=== PATIENT | female | born 1965 | race Caucasian/White ===

== ENCOUNTER 2024-02-06 10:16 | Outpatient (OUT) | payer MEDICARE, SELFPAY ==
[2024-02-06 11:08] LABS: Estimated Average Glucose 105 mg/dL; Glycohemoglobin A1C 5.3 % (4.5-6.2)
[2024-02-06 11:22] LABS: Basophils Absolute Auto 0.1 10^3/uL (0.0-0.1); Basophils Percent Auto 0.6 % (0.2-2.0); Eosinophils Absolute Auto 0.1 10^3/uL (0.0-0.7); Eosinophils Percent Auto 0.6 % (0.9-7.0); Hematocrit 48.1 % (36.0-48.0); Hemoglobin 16.2 g/dL (12.0-16.0); Immature Granulocytes Abs Auto 0.02 10^3/uL (0.00-0.03); Immature Granulocytes Pct Auto 0.2 % (0.0-0.5); Lymphocytes Absolute Auto 2.2 10^3/uL (1.2-3.8); Mean Corpuscular HGB Conc 33.7 g/dL (29.9-35.2); Mean Corpuscular Hemoglobin 33.3 pg (26.7-34.0); Mean Platelet Volume 10.1 fL (9.5-13.5); Monocytes Absolute Auto 0.5 10^3/uL (0.3-0.8); Monocytes Percent Auto 5.7 % (1.7-12.0); Neutrophils Absolute Auto 5.3 10^3/uL (1.4-6.5); Neutrophils Percent Auto 65.9 % (43.0-75.0); Platelet Count 273 10^3/uL (150-450); Red Blood Count 4.86 10^6/uL (4.20-5.40); Red Cell Distribution Width 13.9 % (11.0-15.0); White Blood Count 8.1 10^3/uL (4.0-11.0)
[2024-02-06 11:58] LABS: Percent Iron Saturation 17.4 %
[2024-02-06 12:41] LABS: Alanine Aminotransferase 24 U/L (14-59); Albumin Level 4.1 g/dL (3.4-5.0); Alkaline Phosphatase 79 U/L (46-116); Aspartate Amino Transferase 25 U/L (15-37); BUN Creatinine Ratio 13.8; Bilirubin Total 0.4 mg/dL (0.2-1.0); Calcium 9.8 mg/dL (8.5-10.1); Carbon Dioxide 25.9 mmol/L (21.0-32.0); Chloride 99 mmol/L (98-107); Chol HDL Ratio 3.8; Cholesterol 232 mg/dL (<=200); Estimated GFR (African America 55 (>=60); Estimated GFR (Non-African Ame 45 (>=60); Glucose 111 mg/dL (74-106); HDL Cholesterol 61 mg/dL (40-60); Potassium 3.9 mmol/L (3.5-5.1); Sodium 137 mmol/L (136-145); TSH W/ REFLEX FT4 94.477 uIU/mL (0.358-3.740); Total Protein 8.1 g/dL (6.4-8.2); Triglycerides 101 mg/dL (<=150); VLDL CHOLESTEROL 20.2 mg/dL
[2024-02-07 07:07] LABS: Vitamin B12 366 pg/mL (232-1245)
[2024-02-07 09:07] LABS: Transferrin 336 mg/dL (192-364)
== END 2024-02-06 10:17 | disposition home or self-care (01) ==
DX: E03.0 Congenital hypothyroidism with diffuse goiter (principal); G93.32 Myalgic encephalomyelitis/chronic fatigue syndrome; M79.7 Fibromyalgia; L93.0 Discoid lupus erythematosus; E66.01 Morbid (severe) obesity due to excess calories; Z83.2 Family history of diseases of the blood and blood-forming organs and certain disorders involving the immune mechanism; M85.80 Other specified disorders of bone density and structure, unspecified site; Z78.0 Asymptomatic menopausal state
CPT/HCPCS: 36415; 80053; 80061; 82306; 82607; 82728; 83036; 83540; 83550; 84439; 84443; 84466; 85025

== ENCOUNTER 2024-03-21 12:28 | Outpatient (OUT) | payer MEDICARE, SELFPAY ==
--- OUTSIDE RECORDS SUMMARY | 2024-03-21 12:35 | XMS_ITS | CCD ---
Author Organization [facility] Care Team Providers Care Wood Casket Assembler Name Role Phone Lebron Hogan Admitting Unavailable Lebron Hogan Attending Unavailable Freeman Jaffe Primary Care Unavailable OBRIEN, JESSICA S Admitting Unavailable OBRIEN, JESSICA S Attending Unavailable ARLEEN ALFORD Primary Care Unavailable OBRIEN, JESSICA S Consulting Unavailable OBRIEN, JESSICA S Admitting Unavailable OBRIEN, JESSICA S Attending Unavailable ARLEEN ALFORD Primary Care Unavailable OBRIEN, JESSICA S Consulting Unavailable OBRIEN, JESSICA S Admitting Unavailable OBRIEN, JESSICA S Attending Unavailable ARLEEN ALFORD Primary Care Unavailable AISHA GATES Consulting Unavailable OBRIEN, JESSICA S Admitting Unavailable OBRIEN, JESSICA S Attending Unavailable ARLEEN ALFORD Primary Care Unavailable MISC, DOCTOR Admitting Unavailable MISC, DOCTOR Attending Unavailable ARLEEN ALFORD Primary Care Unavailable MISC, DOCTOR Consulting Unavailable ALYSSA LOUIS Consulting Unavailable MISC, DOCTOR Admitting Unavailable MISC, DOCTOR Attending Unavailable MISC, DOCTOR Consulting Unavailable ALYSSA LOUIS Consulting Unavailable ARLEEN ALFORD Primary Care Unavailable SAMSA, SIENA Admitting Unavailable SAMSA, SIENA Attending Unavailable MASSIEL SANTAMARIA Consulting Unavailable BARRINGTON STOKES Consulting Unavailable SAMSA, SIENA Consulting Unavailable NANETTE COTO Consulting Unavailable LORI COLON Referring Unavailkenneth ashford Problems Active Problems Problem Classification Problem Date Documented Da te Episodic/Chronic Asthma (1 source) Mild intermittent asthma with (acute) exacerbation; Translations: [MILD INTERMIT ASTHMA W/AC EXACERBAT] Onset: 03-26-2020 Chronic Cardiac dysrhythmias (1 source) Tachycardia, unspecified; Translations: [TACHYCARDIA UNSPECIFIED] Onset: 03-26-2020 Episodic Chronic obstructive pulmonary disease and bronchiectasis (1 source) Chronic obstructive pulmonary disease with (acute) exacerbation; Translations: [COPD WITH ACUTE EXACERBATION] Onset: 03-26-2020 Chronic Diseases of white blood cells (1 source) Elevated white blood cell count, unspecified; Translations: [ELEVATED WHITE BLOOD CELL COUNT UNS] Onset: 03-26-2020 Chronic Immunizations and screening for infectious disease (1 source) Contact with and (suspected) exposure to other viral communicable diseases; Translations: [CONTCT EXPS OTH VIRL COMMUNICABL DZ] Onset: 03-26-2020 Episodic Lung disease due to external agents (1 source) Bronchitis and pneumonitis due to chemicals, gases, fumes and vapors; Translations: [BRONCHIT PNEUMONIT D/T CHEM GAS VPR] Onset: 03-26-2020 Episodic Other aftercare (1 source) 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; Translations: [OTH CROCHET MACHINE OPERATOR CURRENT DRUG THERAPY] Onset: 03-26-2020 Episodic Other gastrointestinal disorders (1 source) Constipation, unspecified; Translations: [CONSTIPATION UNSPECIFIED] Onset: 03-26-2020 Episodic Other hereditary and degenerative nervous system conditions (1 source) Restless legs syndrome; Translations: [RESTLESS LEGS SYNDROME] Onset: 05-13-2019 Chronic Other lower respiratory disease (3 sources) Shortness of breath; Translations: [SHORTNESS OF BREATH] Onset: 03-14-2020 Episodic Other nervous system disorders (1 source) Chronic pain syndrome; Translations: [CHRONIC PAIN SYNDROME] Onset: 06-28-2019 Chronic Other nutritional; endocrine; and metabolic disorders (1 source) Morbid (severe) obesity with alveolar hypoventilation; Translations: [MORBID SEV OBESITY ALVEOLR HYPOVENT] Onset: 03-26-2020 Chronic Other nutritional; endocrine; and metabolic disorders (1 source) Body mass index (BMI) 50-59.9, adult; Translations: [BODY MASS INDEX BMI 50.0-59.9 ADULT] Onset: 03-26-2020 Chronic Other nutritional; endocrine; and metabolic disorders (1 source) Morbid (severe) obesity due to excess calories; Translations: [MORBID SEVERE OBES D/T EXCESS ALLEGRA] Onset: 06-28-2019 Chronic Poisoning by nonmedicinal substances (1 source) Toxic effect of detergents, accidental (unintentional), initial encounter; Translations: [TOXIC EFF DETERGENTS ACC INIT ENC] Onset: 03-26-2020 Residual codes; unclassified (1 source) Patient's noncompliance with other medical treatment and regimen; Translations: [PT NONCOMPLIANCE OTH MED TX AND REGIMEN] Onset: 03-26-2020 Episodic Residual codes; unclassified (1 source) Sleep apnea, unspecified; Translations: [SLEEP APNEA UNSPECIFIED] Onset: 05-13-2019 Spondylosis; intervertebral disc disorders; other back problems (11 sources) Sacroiliitis, not elsewhere classified; Translations: [Spondylosis without myelopathy or radiculopathy, thoracic region] Onset: 05-13-2019 Chronic Substance-related disorders (1 source) Nicotine dependence, cigarettes, uncomplicated; Translations: [NICOTINE DEPEND CIGARETTES UNCOMP] Onset: 03-26-2020 Chronic Thyroid disorders (1 source) Hypothyroidism, unspecified; Translations: [HYPOTHYROIDISM UNSPECIFIED] Onset: 03-26-2020 Chronic Unclassified (1 source) M35.9 - Systemic involvement of connective tissue, unspecified; Translations: [M35.9 - Systemic involvement of connective tissue, unspecified] Onset: 04-13-2018 Past or Other Problems Problem Classification Problem Date Documented Da te Episodic/Chronic Other connective tissue disease (4 sources) Other muscle spasm; Translations: [OTHER MUSCLE SPASM] Onset: 06-20-2019 Episodic Other fractures (1 source) Collapsed vertebra, not elsewhere classified, lumbar region, initial encounter for fracture; Translations: [COLLAPSED VERT NEC LUMBAR INIT ENC] Onset: 05-13-2019 Episodic Other non-traumatic joint disorders (1 source) Pain in left shoulder; Translations: [PAIN IN LEFT SHOULDER] Onset: 06-28-2019 Episodic Other non-traumatic joint disorders (1 source) Pain in right shoulder; Translations: [PAIN IN RIGHT SHOULDER] Onset: 06-28-2019 Episodic Residual codes; unclassified (1 source) Tobacco use; Translations: [TOBACCO USE] Onset: 05-13-2019 Episodic Spondylosis; intervertebral disc disorders; other back problems (6 sources) Low back pain; Translations: [Pain in thoracic spine] Onset: 05-10-2019 Episodic Results Test Name Value Interpretation Reference Range Facil ity CBC AUTO DIFFon 03-15-2020 Basophils (Bld) [#/Vol] 0.0 103/ul Normal 0.0-0.1 [facility] Comment on above: Performed By: #### C BC ####[facility] [address] [place] [address]Gerken Andie Basophils/100 WBC (Bld) 0.1 % Critically low 0.2-2.0 [facility] Comment on above: Performed By: #### C BC ####[facility] [address] [place] [address] 73[address]Qwmzmx Andie Eosinophils (Bld) [#/Vol] 0.0 103/ul Normal 0.0-0.7 [facility] Comment on above: Performed By: #### C BC ####[facility] [address] [place] [address] 83233Wqzkbf Andie Eosinophils/100 WBC (Bld) 0.0 % Critically low 0.9-7.0 [facility] Comment on above: Performed By: #### C BC ####[facility] [address] [place] [address] 13723Sdsaab Andie Erythrocyte distribution width (RBC) [Ratio] 13.4 % Normal 11.0-15.0 [facility] Comment on above: Performed By: #### C BC ####[facility] [address] [place] [address] 380[address]Tkdnja Andie Hematocrit (Bld) [Volume fraction] 42.2 % Normal 36.0-48.0 [facility] Comment on above: Performed By: #### C BC ####[facility] [address] [place] [address] 87164Qdfqwl Andie Hemoglobin (Bld) [Mass/Vol] 13.9 g/dL Normal 12.0-16.0 [facility] Comment on above: Performed By: #### C BC ####[facility] [address] [place] [address] 201[address]Upidjk Andie IG # 0.13 10e3/ul Critically high 0.00-0.03 [facility] Comment on above: Performed By: #### C BC ####[facility] [address] [place] [address] 37827Zvvusv Andie IG % 0.9 % Critically high 0.0-0.5 [facility] Comment on above: Performed By: #### C BC ####[facility] [address] [place] [address] 01999Jtebyt Andie Lymphocytes (Bld) [#/Vol] 0.9 103/ul Critically low 1.2-3.8 [facility] Comment on above: Performed By: #### C BC ####[facility] A[address] [place], [place] [address]Gerken Andie Lymphocytes/100 WBC (Bld) 6.4 % Critically low 20.5-60.0 [facility] Comment on above: Performed By: #### C BC ####[facility] [address] [place], [place] [address]Gerken Andie MANUAL DIFF REQ NO Normal [facility] Comment on above: Performed By: #### C BC ####[facility] [address] [place], [place] [address]Gerken Andie MCH (RBC) [Entitic mass] 32.0 pg Normal 26.7-34.0 [facility] Comment on above: Performed By: #### C BC ####[facility] [address] [place], [place] [address]Gerken Andie MCHC (RBC) [Mass/Vol] 32.9 g/dL Normal 29.9-35.2 [facility] Comment on above: Performed By: #### C BC ####[facility] [address] [place], [place] [address]Gerken Andie MCV (RBC) [Entitic vol] 97.2 fL Normal 81.0-99.0 [facility] Comment on above: Performed By: #### C BC ####[facility] [address] [place], [place] [address]Gerken Andie Monocytes (Bld) [#/Vol] 0.7 103/ul Normal 0.3-0.8 [facility] Comment on above: Performed By: #### C BC ####[facility] X[address] [place], [place] [address]Gerken Andie Monocytes/100 WBC (Bld) 4.7 % Normal 1.7-12.0 [facility] Comment on above: Performed By: #### C BC ####[facility] [address] [place], [place] [address]Gulvvn Andie Neutrophils (Bld) [#/Vol] 13.0 103/ul Critically high 1.4-6.5 [facility] Comment on above: Performed By: #### C BC ####[facility] [address] [place], [place] [address]Znkkhs Andie Neutrophils/100 WBC (Bld) 87.9 % Critically high 43.0-75.0 [facility] Comment on above: Performed By: #### C BC ####[facility] [address] [place] [address] 513[address]Jcqjrl Andie Platelet mean volume (Bld) [Entitic vol] 8.8 fL Critically low 9.5-13.5 [facility] Comment on above: Performed By: #### C BC ####[facility] [address] [place] [address] 33857Lkdyyd Andie Platelets (Bld) [#/Vol] 286 103/ul Normal 150-450 [facility] Comment on above: Performed By: #### C BC ####[facility] [address] [place] [address] 65514Prpnsu Andie RBC (Bld) [#/Vol] 4.34 106/ul Normal 4.20-5.40 [facility] Comment on above: Performed By: #### C BC ####[facility] [address] [place] [address] 96805Ebsdnc Andie WBC (Bld) [#/Vol] 14.8 103/ul Critically high 4.0-11.0 [facility] Comment on above: Performed By: #### C BC ####[facility] [address] [place], [place] [address]Lxblkh Andie ER URINE PROFILEon 0 Bilirubin [Mass/Vol] Negative Normal NEGATIVE [facility] Comment on above: Performed By: #### E RUR ####[facility] [address] [place] [address] 309[address]Rrhoad Andie BLOOD Negative Normal NEGATIVE [facility] Comment on above: Performed By: #### E RUR ####[facility] [address] [place] [id number] Andie Clarity (U) CLEAR Normal [facility] Comment on above: Performed By: #### E RUR ####[facility] [address] [place] [address] Andie Color (U) YELLOW Normal YELLOW [facility] Comment on above: Performed By: #### E RUR ####[facility] [address] [place] [address] Andie ERUAHD A micrscopic examination will be performed if indicated. Normal [facility] Comment on above: Performed By: #### E RUR ####[facility] [address] [place] [address] Andie Glucose [Mass/Vol] Negative Normal NEGATIVE [facility] Comment on above: Performed By: #### E RUR ####[facility] [address] [place] [address] Andie Ketones Ql (U) Negative Normal NEGATIVE [facility] Comment on above: Performed By: #### E RUR ####[facility] [address] [place] [address] Andie Nitrite Ql (U) Negative Normal NEGATIVE [facility] Comment on above: Performed By: #### E RUR ####[facility] [address] [place] [address] Andie pH (Bld) 5.0 Normal 5-9 [facility] Comment on above: Performed By: #### E RUR ####[facility] [address] [place] [address] Andie Protein (U) [Mass/Vol] Negative Normal [facility] Comment on above: Performed By: #### E RUR ####[facility] [address] [place] [address] Andie SPEC GRAVITY 1.020 Normal 1.005-<=1.025 [facility] Comment on above: Performed By: #### E RUR ####[facility] [address] [place], [place] [address]OtjczqAmanda Chaves UR MICRO IND NOT INDICATED Normal [facility] Comment on above: Performed By: #### E RUR ####[facility] [address] [place], [place] [address]Zhmkng Karen Urobilinogen Qn (U) 0.2 EU/dl Normal [facility] Comment on above: Performed By: #### E RUR ####[facility] [address] [place], [place] [address]Ulawlt Andie WBC (Bld) [#/Vol] Negative Normal NEGATIVE [facility] Comment on above: Performed By: #### E RUR ####[facility] [address] [place] [phone] Chaves BNPon 03-13-2020 Natriuretic peptide B (Bld) [Mass/Vol] 100.0 pg/mL Normal <=900.0 [facility] Comment on above: Performed By: #### B FLATTENING MACHINE OPERATOR, TSH, TROP, CMP #### [facility] [address] [place] [phone] Amanda Andie CBC AUTO DIFFon 03-13-2020 Basophils (Bld) [#/Vol] 0.1 103/ul Normal 0.0-0.1 [facility] Comment on above: Performed By: #### C BC #### [facility] [address] [place], [place] [address] Amanda Andie Basophils/100 WBC (Bld) 0.3 % Normal 0.2-2.0 [facility] Comment on above: Performed By: #### C BC #### [facility] [address] [place], [place] [address] Amanda Andie Eosinophils (Bld) [#/Vol] 0.1 103/ul Normal 0.0-0.7 [facility] Comment on above: Performed By: #### C BC #### [facility] [address] [place], [place] [address] Amanda Andie Eosinophils/100 WBC (Bld) 0.6 % Critically low 0.9-7.0 [facility] Comment on above: Performed By: #### C BC #### [facility] [address] [place], [place] [address] Amanda Andie Erythrocyte distribution width (RBC) [Ratio] 13.3 % Normal 11.0-15.0 [facility] Comment on above: Performed By: #### C BC #### [facility] [address] [place], [place] [address] Amanda Andie Hematocrit (Bld) [Volume fraction] 47.9 % Normal 36.0-48.0 [facility] Comment on above: Performed By: #### C BC #### [facility] [address] [place] [phone] Amanda Andie Hemoglobin (Bld) [Mass/Vol] 16.0 g/dL Normal 12.0-16.0 [facility] Comment on above: Performed By: #### C BC #### [facility] [address] [place] [address] Amanda Andie IG # 0.12 10e3/ul Critically high 0.00-0.03 [facility] Comment on above: Performed By: #### C BC #### [facility] [address] [address] Amanda Andie IG % 0.7 % Critically high 0.0-0.5 [facility] Comment on above: Performed By: #### C BC #### [facility] [address] [place] [address] Amanda Andie Lymphocytes (Bld) [#/Vol] 3.8 103/ul Normal 1.2-3.8 [facility] Comment on above: Performed By: #### C BC #### [facility] [address] [place] [address] Amanda Andie Lymphocytes/100 WBC (Bld) 21.9 % Normal 20.5-60.0 [facility] Comment on above: Performed By: #### C BC #### [facility] [address] [place] [phone] Amanda Andie MANUAL DIFF REQ NO Normal [facility] Comment on above: Performed By: #### C BC #### [facility] [address] [place], [place] [address] Amanda Andie MCH (RBC) [Entitic mass] 32.9 pg Normal 26.7-34.0 [facility] Comment on above: Performed By: #### C BC #### [facility] [address] [place], [place] [address] Amanda Andie MCHC (RBC) [Mass/Vol] 33.4 g/dL Normal 29.9-35.2 [facility] Comment on above: Performed By: #### C BC #### [facility] [address] [place], [place] [address] Amanda Andie MCV (RBC) [Entitic vol] 98.4 fL Normal 81.0-99.0 [facility] Comment on above: Performed By: #### C BC #### [facility] [address] [place] [address] Amanda Andie Monocytes (Bld) [#/Vol] 1.2 103/ul Critically high 0.3-0.8 [facility] Comment on above: Performed By: #### C BC #### [facility] [address] [place] [address] Amanda Andie Monocytes/100 WBC (Bld) 6.6 % Normal 1.7-12.0 [facility] Comment on above: Performed By: #### C BC #### [facility] [address] [place] [address] Amanda Andie Neutrophils (Bld) [#/Vol] 12.2 103/ul Critically high 1.4-6.5 [facility] Comment on above: Performed By: #### C BC #### [facility] [address] [place] [address] Amanda Andie Neutrophils/100 WBC (Bld) 69.9 % Normal 43.0-75.0 [facility] Comment on above: Performed By: #### C BC #### [facility] [address] [place] [address] Amanda Andie Platelet mean volume (Bld) [Entitic vol] 8.9 fL Critically low 9.5-13.5 [facility] Comment on above: Performed By: #### C BC #### [facility] [address] [place], [place] [address] Amadna Chaves Platelets (Bld) [#/Vol] 367 103/ul Normal 150-450 [facility] Comment on above: Performed By: #### C BC #### [facility] [address] [place], [place] [address] Amanda Chaves RBC (Bld) [#/Vol] 4.87 106/ul Normal 4.20-5.40 [facility] Comment on above: Performed By: #### C BC #### [facility] [address] [place], [place] [address] Amanda Chaves WBC (Bld) [#/Vol] 17.5 103/ul Critically high 4.0-11.0 [facility] Comment on above: Performed By: #### C BC #### [facility] [address] [place], [place] [address] Amanda Chaves CTA CHEST WO W CONon 020 CTA CHEST WO W CON PROCEDURE: CTA CHEST WO W CON REASON FOR STUDY/Clinical History: Chest pain, evaluate for PE COMPARISON STUDY: None available at time of dictation. CT ANGIO CHEST WITH CONTRAST: TECHNIQUE: Volumetric data acquisition of chest was obtained following intravenous administration of90 mL Omnipaque 350 intravenous contrast without any reported adverse effects. Axial images were reconstructed; sagittal and coronal images were reformatted. MIP (maximum intensity projection) images were performed. Images were reviewed PACS. Dose reduction techniques were achieved by using automated exposure control and/or adjustment of mA and/or kV according to patient size and/or use of iterative reconstruction technique. FINDINGS: Pulmonary Arteries: There is mixing artifact at the distal segmental and subsegmental pulmonary arterial tree secondary to somewhat suboptimal bolus timing with robust opacification of both the aorta and pulmonary venous system, however within this limitation the following are noted; There are no filling defects within main, lobar, segmental and visualized most proximal subsegmental branch pulmonary arteries. There is subtle heterogeneity on image 57 and 58 of series 11 as well as on image 57 through 60 of series 10 involving a distal right subsegmental pulmonary arterial branch, however motion on image 59 through 65 of series 4 is also suggested at this level. Very subtle pathology is not entirely excluded. There is top normal dimensional of main PA. Lungs: There is no peripheral pulmonary infarction, consolidation, pleural effusion, or right heart strain. There is no pneumothorax or pneumomediastinum. Very subtle atelectatic changes and pleural-based atelectasis can be appreciated with the most pronounced findings in the lingula at the anteromedial left lung base. Very subtle nodule on image 42 of series 4 and 43 of series 4 along the right pleural surface is felt to be less likely however not entirely excluded. This is felt to represent inflammatory change, however consider follow-up per Fleischner criteria. The dominant pleural-based atelectatic change or nodular focus measures up to 6 mm and the smaller component measures 3 mm. This finding is seen on image 42 and 43 of series 4. Aorta and Vasculature: There is normal caliber of thoracic aorta without evidence of aortic dissection, intramural hematoma or aneurysm. Lower Neck: Visualized portions of the thyroid gland are unremarkable. No significant cardiomegaly or pericardial effusion. No pathologic adenopathy in the mediastinum or hilar regions. Musculoskeletal: No aggressive focal bony lesions, acute fractures or dislocation. Chest wall: Unremarkable Partially visualized upper abdomen is mildly obscured due to motion however no definite focal acute process is appreciated. IMPRESSION: No convincing evidence of acute or chronic pulmonary embolism within the limitations as described above, particularly involving evaluation of the most distal pulmonary arterial tree. Probable artifact on the right involving the distal pulmonary arterial tree as described. Top normal caliber to the main pulmonary artery which may represent a degree of mild underlying pulmonary arterial hypertension. Subtle atelectatic changes as described with nodular atelectasis suggested on the right. Electronically authenticated by: NANETTE COTO Date: 2020-03-13 21:48 Normal [facility] LACTATE/LACTIC ACIDon 2019 Lactate [Moles/Vol] 1.3 mmol/L Normal 0.7-2.0 [facility] Comment on above: Performed By: #### L ACT #### [facility] [address] [place], [place] [address] Amanda Chaves PH VENOUS BLOODon 03-13-2020 PCO2 VENOUS 56.5 mmHg Critically high 40.0-52.0 [facility] Comment on above: Performed By: #### P HVEN #### [facility] [address] [place] [address] Amanda Chaves pH VENOUS 7.30 Critically low 7.33-7.43 [facility] Comment on above: Performed By: #### P HVEN #### [facility] [address] [place] [address] Amanda Chaves PROCALCITONINon 03-13-2020 PCT header 1 SEE BELOW Normal [facility] Comment on above: Result Comment: PCT <0.5ng/mL: Systemic infection (sepsis) is not likely, local bacterial infection possible, low risk for progression to severe systemic infection (severe sepsis) Performed By: #### P RL ####[facility] [address] [place], [place] [address]Gerken Andie PCT header 2 SEE BELOW Normal [facility] Comment on above: Result Comment: PCT >/=0.5 and <2 ng/mL: Systemic infection (sepsis) is possible, moderate risk for progression to severe systemic infection (severe sepsis) Performed By: #### P RL ####[facility] [address] [place], [place] [address]Gerken Andie PCT header 3 SEE BELOW Normal [facility] Comment on above: Result Comment: PCT >/=2.0 and <10 ng/mL: Systemic infection (sepsis) is likely, unless other causes are known, high risk for progession to severe systemic infection(severe sepsis) Performed By: #### P RL ####[facility] [address] [place] [address] Andie PCT header 4 SEE BELOW Normal [facility] Comment on above: Result Comment: PCT >/= 10 ng/mL: Important systemic inflammatory response almost exclusively due to severe bacterial sepsis or septic shock, high likelihood of severe sepsis or septic shock Performed By: #### P RL ####[facility] [address] [place] [address] Andie PROCALCITONIN <0.05 Normal 0.00-0.50 [facility] Comment on above: Performed By: #### P RL ####[facility] [address] [place], [place] [address]Amanda Chaves PROF 14(COMP METB)on 020 Albumin [Mass/Vol] 3.8 g/dL Normal 3.5-5.0 [facility] Comment on above: Performed By: #### B FLATTENING MACHINE OPERATOR, TSH, TROP, CMP ####[facility] [address] [place] [id number] Andie Albumin/Globulin [Mass ratio] 0.8 {ratio} Normal [facility] Comment on above: Performed By: #### B FLATTENING MACHINE OPERATOR, TSH, TROP, CMP ####[facility] [address] [place] [id number] Andie ALP [Catalytic activity/Vol] 87 U/L Normal 38-126 [facility] Comment on above: Performed By: #### B FLATTENING MACHINE OPERATOR, TSH, TROP, CMP ####[facility] [address] [place] [id number] Andie ALT [Catalytic activity/Vol] 17 U/L Normal 9-52 [facility] Comment on above: Performed By: #### B FLATTENING MACHINE OPERATOR, TSH, TROP, CMP ####[facility] [address] [place] [id number] Andie Anion gap [Moles/Vol] 13.1 mmol/L Normal [facility] Comment on above: Performed By: #### B FLATTENING MACHINE OPERATOR, TSH, TROP, CMP ####[facility] [address] [place] [id number] Andie AST [Catalytic activity/Vol] 11 U/L Critically low 14-36 [facility] Comment on above: Performed By: #### B FLATTENING MACHINE OPERATOR, TSH, TROP, CMP ####[facility] X[address] [place] [id number] Andie Bilirubin Ql (U) 0.3 mg/dL Normal 0.2-1.3 [facility] Comment on above: Performed By: #### B FLATTENING MACHINE OPERATOR, TSH, TROP, CMP ####[facility] [address] [place] [id number] Andie Calcium [Mass/Vol] 9.8 mg/dL Normal 8.4-10.2 [facility] Comment on above: Performed By: #### B FLATTENING MACHINE OPERATOR, TSH, TROP, CMP ####[facility] I[address] Andie Chloride [Moles/Vol] 104 mmol/L Normal 98-107 [facility] Comment on above: Performed By: #### B FLATTENING MACHINE OPERATOR, TSH, TROP, CMP ####[facility] [address] [place] [address] Andie CO2 [Moles/Vol] 27.6 mmol/L Normal 22.0-30.0 [facility] Comment on above: Performed By: #### B FLATTENING MACHINE OPERATOR, TSH, TROP, CMP ####[facility] [address] [place] [address] Andie Creatinine [Mass/Vol] 1.08 mg/dL Critically high 0.52-1.04 [facility] Comment on above: Performed By: #### B FLATTENING MACHINE OPERATOR, TSH, TROP, CMP ####[facility] [address] [place] [address] Andie EGFR-AF HUNGARIAN >60 Normal >=60 [facility] Comment on above: Performed By: #### B FLATTENING MACHINE OPERATOR, TSH, TROP, CMP ####[facility] [address] [place] [address] Andie EGFR-NON AF HUNGARIAN 53 mL/min/1.73m2 Critically low >=60 [facility] Comment on above: Performed By: #### B FLATTENING MACHINE OPERATOR, TSH, TROP, CMP ####[facility] [address] [place] [address] Andie Globulin (S) [Mass/Vol] 4.5 g/dL Normal [facility] Comment on above: Performed By: #### B FLATTENING MACHINE OPERATOR, TSH, TROP, CMP ####[facility] Isakqvasoz[address] Andie Glucose [Mass/Vol] 132 mg/dL Critically high 74-106 [facility] Comment on above: Performed By: #### B FLATTENING MACHINE OPERATOR, TSH, TROP, CMP ####[facility] [address], [place] [address]Ssrls[place] Andie Potassium [Moles/Vol] 3.7 mmol/L Normal 3.4-5.0 [facility] Comment on above: Performed By: #### B FLATTENING MACHINE OPERATOR, TSH, TROP, CMP ####[facility] T[address]gsb[address] [place] [id number] Andie Protein [Mass/Vol] 8.3 g/dL Critically high 6.1-8.2 T [facility] Comment on above: Performed By: #### B FLATTENING MACHINE OPERATOR, TSH, TROP, CMP ####[facility] [address] [place], [place] [id number] Andie Sodium [Moles/Vol] 141 mmol/L Normal 137-145 [facility] Comment on above: Performed By: #### B FLATTENING MACHINE OPERATOR, TSH, TROP, CMP ####[facility] [address] [place], [place] [id number] Andie Urea nitrogen [Mass/Vol] 14.0 mg/dL Normal 7.0-17.0 [facility] Comment on above: Performed By: #### B FLATTENING MACHINE OPERATOR, TSH, TROP, CMP ####[facility] [address] [place], [place] [address]Gerken Andie Urea nitrogen/Creatinine [Mass ratio] 13.0 mg/mg Normal [facility] Comment on above: Performed By: #### B FLATTENING MACHINE OPERATOR, TSH, TROP, CMP ####[facility] [address] [place], [place] [id number] Andie PROTIMEon 03-13-2020 INR Coag (PPP) [Relative time] 0.99 {INR} Normal [facility] Comment on above: Performed By: #### P TT, PT ####[facility] [address] [place], [place] [id number] Andie PT Coag (PPP) [Time] 10.5 s Normal 9.0-11.6 [facility] Comment on above: Performed By: #### P TT, PT ####[facility] [address] [place], [place] [id number] Andie PT Coag (PPP) [Time] SEE BELOW Normal [facility] Comment on above: Result Comment: ROBERT RED INR: 2.0 - 3.0 CONDITIONS NOT LISTED BELOW 2.5 - 3.5 FOR PROSTHETIC HEART VALVE REPLACEMENT 2.5 - 3.5 RECURRENT THROMBOSIS Performed By: #### P TT, PT ####[facility] [address] [place] [address] Andie PT Coag (PPP) [Time] PLEASE NOTE: NORMAL RANGE CHANGE 02-23-2014 DUE TO REAGENT LOT CHANGE Normal [facility] Comment on above: Performed By: #### P TT, PT ####[facility] [address] [place] [address] Andie PTTon 03-13-2020 aPTT Coag (Bld) [Time] 31.6 s Normal 22.3-36.2 [facility] Comment on above: Performed By: #### P TT, PT ####[facility] [address] [place] [address] Andie aPTT Coag (Bld) [Time] PLEASE NOTE: NORMAL RANGE CHANGE 05-02-2015 DUE TO REAGENT LOT CHANGE Normal [facility] Comment on above: Performed By: #### P TT, PT ####[facility] [address] [place] [address] Andie RESPIRATORY PANEL PLUSon Adenovirus NOT DETECTED Normal NOT DETECTED [facility] Comment on above: Performed By: #### R SPLUS ####[facility] [address] [place] [address] Andie B. Parapertusis NOT DETECTED Normal NOT DETECTED [facility] Comment on above: Performed By: #### R SPLUS ####[facility] [address] [place] [address] Andie B. Pertussis NOT DETECTED Normal NOT DETECTED [facility] Comment on above: Performed By: #### R SPLUS ####[facility] [address] [place] [address] Andie Chlamydia Pneumoniae NOT DETECTED Normal NOT DETECTED [facility] Comment on above: Performed By: #### R SPLUS ####[facility] Olrzmwpaqw[address] Andie Coronavirus 229E NOT DETECTED Normal NOT DETECTED [facility] Comment on above: Performed By: #### R SPLUS ####[facility] Irqkharwnk[address] Andie Coronavirus HKU1 NOT DETECTED Normal NOT DETECTED [facility] Comment on above: Performed By: #### R SPLUS ####[facility] Qcdehwpuej2572 [address] Andie Coronavirus NL63 NOT DETECTED Normal NOT DETECTED [facility] Comment on above: Performed By: #### R SPLUS ####[facility] Cflohqobgl3698 [address] Andie Coronavirus OC43 NOT DETECTED Normal NOT DETECTED [facility] Comment on above: Performed By: #### R SPLUS ####[facility] Mopoimlhof[address]83 [address] Andie Influenza A H1 2009 NOT DETECTED Normal NOT DETECTED [facility] Comment on above: Performed By: #### R SPLUS ####[facility] Arefbdtbgo8272 [address] Andie Influenza B NOT DETECTED Normal NOT DETECTED [facility] Comment on above: Performed By: #### R SPLUS ####[facility] Ydntecoynd[address] Andie Metapneumovirus NOT DETECTED Normal NOT DETECTED [facility] Comment on above: Performed By: #### R SPLUS ####[facility] Bakbyobjbx3863 [address] Andie Mycoplas. Pneumoniae NOT DETECTED Normal NOT DETECTED [facility] Comment on above: Performed By: #### R SPLUS ####[facility] Oonqhjesbg26[address] Andie Parainfluenza 1 NOT DETECTED Normal NOT DETECTED [facility] Comment on above: Performed By: #### R SPLUS ####[facility] Femynlsgfr7307 [address] Andie Parainfluenza 2 NOT DETECTED Normal NOT DETECTED [facility] Comment on above: Performed By: #### R SPLUS ####[facility] Voasrffyku0197 [address] Andie Parainfluenza 3 NOT DETECTED Normal NOT DETECTED [facility] Comment on above: Performed By: #### R SPLUS ####[facility] Apcgwnassb2611 [address] Andie Parainfluenza 4 NOT DETECTED Normal NOT DETECTED [facility] Comment on above: Performed By: #### R SPLUS ####[facility] Fucpimlocl[address]47 [address] Andie Rhino/Enterovirus NOT DETECTED Normal NOT DETECTED [facility] Comment on above: Performed By: #### R SPLUS ####[facility] Aczf[address]yls[address] RP2 Header 1 RESPIRATORY PANEL: VIRUSES Normal [facility] Comment on above: Performed By: #### R SPLUS ####[facility] Uycmoskajb[address] Andie RP2 Header 2 RESPIRATORY PANEL: BACTERIA Normal [facility] Comment on above: Performed By: #### R SPLUS ####[facility] [address] [place] [address] Andie RP2 Header 4 EUA SEE BELOW Normal [facility] Comment on above: Result Comment: This test is not yet approved or cleared by the [place] FDA. When there are no FDA-approved or cleared tests available, and other criteria are met, FDA can make tests available under an emergency access mechanism called an Emergency Use Authorization (EUA). The EUA for this test is supported by the [place] of Health and Human Service?s (HHS?s) declaration that circumstances exist to justify the emergency use of in vitro diagnostics for the detection and/or diagnosis of the virus that causes COVID-19. This EUA will remain in effect (meaning this test can be used) for the duration of the COVID-19 declaration justifying emergency of IVDs, unless it is terminated or revoked by FDA (after which the test may no longer be used). Performed By: #### R SPLUS ####[facility] [address] [place] [address] RSV NOT DETECTED Normal NOT DETECTED [facility] Comment on above: Performed By: #### R SPLUS ####[facility] [address] [place] [address] SARS-CoV-2: COVID-19 NOT DETECTED Normal NOT DETECTED [facility] Comment on above: Performed By: #### R SPLUS ####[facility] [address] [place] [address] TROPONIN - Ion 03-13-2020 Troponin I.cardiac [Mass/Vol] ng/mL Normal <=0.034 [facility] Comment on above: Performed By: #### B FLATTENING MACHINE OPERATOR, TSH, TROP, CMP ####[facility] [address] [place] [address] Troponin I.cardiac [Mass/Vol] SEE BELOW Normal [facility] Comment on above: Result Comment: <0.0 34 ng/ml NEGATIVE 0.034-0.119 INDETERMINATE 0.120 AMI CUT OFF Performed By: #### B FLATTENING MACHINE OPERATOR, TSH, TROP, CMP ####[facility] [address] [place] [address] TSHon 03-13-2020 TSH Qn 11.996 uIU/mL Critically high 0.470-4.680 [facility] Comment on above: Performed By: #### B FLATTENING MACHINE OPERATOR, TSH, TROP, CMP ####[facility] [address] [place] [address] TSH Qn SEE BELOW Normal [facility] Comment on above: Result Comment: <0.3 4 UIU/ml HYPERTHYROID 0.34-5.60 UIU/ml EUTHYROID >5.60 UIU/ml HYPOTHYROID Performed By: #### B FLATTENING MACHINE OPERATOR, TSH, TROP, CMP ####[facility] [address] [place] [address] MRI LSPINE WO CONon 10-21-19 20 MRI LSPINE WO CON EXAMINATION: MRI LSPINE WO CON HISTORY: Sacroiliac joint inflamed ; chronic lumbar pain COMPARISON: No relevant comparison available. TECHNIQUE: A variety of imaging planes and parameters were utilized for visualization of suspected pathology. FINDINGS: For the purposes of numbering, sagittal T2 image # 8 extends from the T11 vertebral body superiorly to the S2-3 level inferiorly. PARASPINAL AREA: Normal with no visible mass. BONES: Slight anterior wedging of L1 vertebral body without marrow edema. No acute fracture or spondylolisthesis. No bone lesion. CORD/CAUDA EQUINA: Normal caliber, contour, and signal intensity. DISC LEVELS: 12-L1: Early degenerative disc disease is present without focal protrusion or neural impingement. L1-L2: Early degenerative disc disease is present without focal protrusion or neural impingement. L2-L3: No significant disc/facet abnormality, spinal stenosis, or foraminal stenosis. L3-L4: No significant disc/facet abnormality, spinal stenosis, or foraminal stenosis. L4-L5: Mild facet degenerative arthropathy bilaterally. No significant disc/facet abnormality, spinal stenosis, or foraminal stenosis. L5-S1: Early degenerative disc disease is present without focal protrusion or neural impingement. IMPRESSION: 1. Mild anterior wedging of L1 vertebral body; sequela of remote mild compression fracture versus development. 2. No significant degenerative disc disease, and only mild degenerative facet arthropathy. 3. No significant central canal or neural foramen narrowing to account for the patient's symptoms. Electronically authenticated by: ALYSSA LOUIS Date: 2019-10-21 15:50 Normal [facility] MRI [facility] CONon 10-19-19 20 [facility]: MRI CSPINE WO CON HISTORY: Spondylosis without myelopathy COMPARISON: No relevant comparison available. TECHNIQUE: A variety of imaging planes and parameters were utilized for visualization of suspected pathology. FINDINGS: CRANIOCERVICAL AREA: Normal foramen magnum with no Chiari malformation. PARASPINAL AREA: Normal with no visible mass. BONES: No fracture, pars defect, or osseous lesion. CORD: Normal caliber, contour, and signal intensity. CERVICAL DISC LEVELS: C2-C3: No significant disc/facet abnormality, spinal stenosis, or foraminal stenosis. C3-C4: No significant disc/facet abnormality, spinal stenosis, or foraminal stenosis. C4-C5: No significant disc/facet abnormality, spinal stenosis, or foraminal stenosis. C5-C6: Mild foramen narrowing, left greater than right. Small posterior central disc extrusion causing mild central canal narrowing. No significant disc height reduction. C6-C7: Early degenerative disc disease is present without focal protrusion or neural impingement. C7-T1:. No significant disc/facet abnormality, spinal stenosis, or foraminal stenosis. IMPRESSION: 1. C5-6 mild foramen narrowing and small posterior disc protrusion consistent with mild degenerative disc disease. No significant central canal narrowing. Electronically authenticated by: ALYSSA LOUIS Date: 2019-10-19 15:31 Normal [facility] MRI TSPINE WO CONon 10-19-19 20 MRI TSPBANNER WO CON EXAMINATION: MRI TSPBANNER WO CON HISTORY: Spondylosis without myelopathy COMPARISON: No relevant comparison available. TECHNIQUE: Axial T2; Sagittal T1, T2, and Stir sequences. Images were performed without contrast. FINDINGS: CORD: Normal caliber, contour, and signal intensity. BONES: No fracture, pars defect, or osseous lesion. DISCS: No significant disc/facet abnormality, spinal stenosis, or foraminal stenosis. PARASPINAL AREA: No visible mass. OTHER: Negative. IMPRESSION: 1. Unremarkable MRI of the thoracic spine. Electronically authenticated by: ALYSSA LOUIS Date: 2019-10-19 15:36 Normal [facility] CONSULTATIONon 06-20-2019 CONSULTATION CONSULTATION PAIN MANAGEMENT Consultation Date: 06-20-19 HISTORY OF PRESENT ILLNESS: This is a very pleasant 54 year-old female patient who comes to the pain clinic with chronic neck pain and shoulder pain. She rates the neck and shoulder pain a 7/10, which is a constant aching and burning sensation. Activities that increase the pain are evening time, housework, lifting, bending, activities of daily living, activities, and cold weather change. Activities that decrease the pain are sitting, lying down, heat, Flexeril, [place], lidocaine patches topically, and Voltaren gel. On May 24, 2019 the patient had a #1 bilateral medial branch block at the levels of L2, L3, and L4, L5 which afforded the patient 100% relief of her pain and symptoms to the low back for 30 minutes then stated 30-40% for 1-2 hours. We will now proceed with a #2 medial branch block in the office today. I do believe her pain is more myofascial in nature. She denies any complications after the #1 medial branch block as well as any loss of bowel or bladder, injuries or falls. MEDICATIONS: PHYSICAL EXAM: VITALS:BP 156/99 with a heart rate of 60, respirations 18. The patient is 5'2 , 134 kg. HEENT:Head is atraumatic, normocephalic. Facial symmetry is maintained. NECK:Guarded with pain upon extension, compression, and direct palpation along the posterior elements which is concordant with facet arthropathy, spondylosis on the left and right side. There is noted cervical facet fullness. Trachea is midline. There is moderate range of motion and no guarding and pain with cervical rotation of the spine to the left and right. There are no paresthesias as well as paravertebral spasms noted. There is moderate tenderness to palpation to the left and right trapezius muscle as well as positive for muscle spasticity with a positive twitch response. HEART:Regular rate with no JVD noted. LUNGS:Normal expansion, with unlabored breathing, no audible wheezing noted. ABDOMEN:Soft, nondistended, and morbidly obese. BACK:Range of motion is guarded for flexion, extension, and rotation. Tenderness is noted along the extension, compression, and direct palpation along the lumbar facets. There is positive axial loading to the left and right lumbar facets. Nathen's is slightly positive as is the compression test. Point tenderness is noted to the lumbar region on the right and left without pain extending in the bilateral lower extremities. There are no paresthesias as well as paravertebral spasms noted at this time. EXTREMITIES:No pedal edema is noted to the bilateral lower extremities. MUSCULOSKELETAL:Inta ct with no motor weaknesses to the bilateral lower extremities. Muscle strength is 5/5 to the bilateral lower extremities. NEUROLOGICAL:The patient is neurologically intact to the bilateral lower extremities. Patellar reflex 2/2 and Achilles reflex 2/2 are present bilaterally to the lower extremities. PSYCHIATRIC:The patient is cooperative, alert and oriented x3, and appropriate for mood and affect. DIAGNOSES: 1. Thoracic pain. 2. Bilateral trapezius muscle spasticity. 3. Bilateral shoulder pain. 4. Chronic pain syndrome. 5. Morbid obesity. PLAN: 1. Bilateral trapezius trigger point injections for muscle spasticity. 2. The patient will followup in the pain clinic four weeks after the injection to reevaluate her pain. Dictated by Aisha Gates APRN [facility] Signed and Approved by: AISHA GATES 07/18/2019 12:39:00 Normal [facility] CONSULTATIONon 05-10-2019 CONSULTATION CONSULTATION PAIN MANAGEMENT Consultation Date: 05-10-19 CHIEF COMPLAINT: 1. Mid back pain. 2. Low back pain. 3. Restless legs. HISTORY OF PRESENT ILLNESS: Today in the office I saw Mercedes Lu. This is a 53 year-old female who is referred to us by Dr. Arleen Alford. The patient has had chronic pain. The patient in the past has been diagnosed with multiple pathologies including fibromyalgia. The patient describes the pain as a 7/10, a burning sensation. The patient states she cannot take NSAIDs due to her stomach hurting. MEDICATIONS: The patient takes Flexeril 10 mg q.p.m, oxycodone, in the past the patient was approximately 150 mEq whether it be oxycodone and/or morphine. Currently the patient is taking 5 mg q.i.d., Voltaren gel and Adderall 30 mg b.i.d. for her obstructive sleep apnea. ADL: The patient states activities such as twisting, pushing, walking, housework, lifting, bending, activities, change in weather, sleep aggravates the pain. Sitting mitigates the pain as does lying down for short periods of time. Forward flexion mitigates the pain. The patient had a lumbar epidural steroid injection by Dr. Ray in August of 2018. The patient has attended Physical Therapy multiple times. The patient has x-rays and an MRI dated 2014, the MRI was reviewed. X-rays are more recent. PAST MEDICAL HISTORY / PAST SURGICAL HISTORY and REVIEW OF SYSTEMS are noted on the chart along with the MEDICATIONS, ALLERGIES, and radiological images as stated above. PHYSICAL EXAM: GENERAL:This is a pleasant, morbidly obese female who is rather anxious. VITALS:Blood pressure is elevated at 132/98 with a heart rate of 118. The patient is anxious. HEAD:Atraumatic, normocephalic. NECK:Bullous. The patient does have a cushingoid type appearance. HEART:Regular rate. LUNGS:Normal expansion. The patient is a smoker. She states she's decreased from 3 packs a day to 1 pack per day. She was congratulated on this. Education was done about continuing this trendline. ABDOMEN:Protuberant, distended. At a height of 5'2 , the patient weighs 289 pounds. BACK:The patient has loss of lumbar lordosis. Pelvic is rotated anteriorly. Extension, compression, and direct palpation along the posterior elements aggravate and reproduce the pain symptomatology, concordant with facet arthropathy and lumbar spondylosis. EXTREMITIES:Pedal edema is present. MUSCULOSKELETAL:Inta ct in the lower extremities, the patient does have varus deformity in her knees. NEUROLOGICALLY:No radicular symptomatology is present. The patient is hyper-focused. PSYCHIATRICALLY:Affe ct is appropriate. IMPRESSION: 1. Low back pain. 2. Lumbar spondylosis. 3. Lumbar degenerative disc disease. 4. Symptomatology consistent with restless leg syndrome. 5. L1 compression fracture noted on the x-ray and the MRI. 6. Sleep apnea. 7. Tobacco usage. 8. Morbid obesity. PLAN: 1. Education was done with regards to our treatment modalities, especially the interventional. 2. We will schedule the patient for a lumbar medial branch block at the level of L2, L3 and L4, L5. 3. The patient will be started on a multivitamin regimen, which she is already taking a few of them. 4. Oxycodone 5/325 mg 1 tablet p.o. t.i.d. will be prescribed along with a UTOX being done in the office. 5. Heat rub has been suggested to the patient. The patient understands and would like to proceed. cc:Dr. Arleen Alford [facility] Signed and Approved by: DR JESSICA OBRIEN 05/17/2019 13:36:00 Normal [facility] Encounters Encounter Date Encounter Type Care Provider Facility Start: 03-09-2024 End: 03-09-2024 ambulatory LORI COLON Not Available Start: 03-14-2020 End: 03-16-2020 Evaluation and management of inpatient ARLEEN ALFORD Facility:[facility] Start: 10-21-2019 End: 10-22-2019 Patient encounter procedure DOCTOR MIS Facility:[facility] Start: 10-19-2019 End: 10-20-2019 Patient encounter procedure DOCTOR MIS Facility:[facility] Start: 07-25-2019 Patient encounter procedure JESSICA OBRIEN Facility:[facility] Start: 06-20-2019 End: 06-21-2019 Patient encounter procedure JESSICA OBRIEN Facility:[facility] Start: 05-24-2019 End: 05-24-2019 Patient encounter procedure JESSICA OBRIEN Facility:[facility] Start: 05-10-2019 End: 05-11-2019 Patient encounter procedure JESSICA OBRIEN Facility:[facility] Start: 04-13-2018 End: 04-13-2018 Patient encounter procedure Lebron Hogan Facility:[facility] Procedures Date Procedure Procedure Detail Performing Clinician Start: 03-13-2020 End: 03-13-2020 Microscopic examination of blood, culture JESSICA OBRIEN Comment on above: Performed By: #### B LDCX2 ####[facility] [address] [place], [place] [address]MortbeAmanda Chaves Performed By: #### B LDCX1 ####[facility] [address] [place], [place] [address]RibhspAmanda Chaves Payers Date Payer Category Payer Medicare [id number] 2018 Medicare [id number] 2018 Self-pay 2018 Unknown [id number] 1965 Unknown [id number] 1965 Unknown [id number] 1967 Unknown [id number] 2.16.84 [id number] 1965 Unknown [id number] 2.16.84 [id number] 1967 Unknown [id number] 2.16.84 [id number] 1967 Unknown [id number] 2.16.84 0.1.095659.3.579.2.593 1967 Unknown [id number] 2.16.84 0.1.559319.3.579.2.593 1967 Unknown [id number] 2.16.84 [id number] 1957 Medicare [id number] Unknown [id number] 2.16.84 [id number] Summary Purpose Family History No Family History Records FoundNo Family History Records FoundNo Family History Records Found Advance Directives No Advanced Directives Records FoundNo Advanced Directives Records FoundNo Advanced Directives Records Found Procedure Findings Note CONSULTATION PAIN MANAGEMENT PROCEDURE NOTE Consultation Date: 06-20-19 PRE AND POST PROCEDURE DIAGNOSIS: Bilateral trapezius muscle spasticity. PROCEDURE NAME:Trigger point injection to the left and right trapezius muscle. PROCEDURE: Subsequent to the obtaining informed consent, the patient was placed in a seated position in a chair. With gloves, an alcohol prep was used to sterilize the left and right trapezius muscle. A 25 gauge needle was advanced until it came to rest along both trigger zones on the left and right. At this point, Marcaine 0.125% along with Kenalog 10 mg per site was injected in a fan like pattern to each trigger point area in the left and right trapezius. The patient tolerated the procedure well without any complications and will be followed up in the office in four weeks. Vital signs were obtained and stable. Dictated by Aisha Gates APRN [facility] Signed and Approved by: AISHA GATES 07/18/2019 12:39:00 Additional Source Comments INFORMATION SOURCE (unrecogn ized section and content) DATE CREATED AUTHOR 09/18/2018 [facility] DATE CREATED AUTHOR AUTHOR'S ORGANIZ ATION 03/26/2020 [facility] DATE CREATED AUTHOR AUTHOR'S ORGANIZ ATION 03/13/2024 [facility] FOR RECORDS PERTAINING TO PATIENTS WHO ARE OR HAVE BEEN ENROLLED IN A CHEMICAL DEPENDENCY/SUBSTANCEABUSE PROGRAM, SOME INFORMATION MAY BE OMITTED. This clinical summary was aggregated from multiple sources. Caution should be exercised in using it in the provision of clinical care. This summary normalizes information from multiple sources, and as a consequence, information in this document may materially change the coding, format and clinical context of patient data. In addition, data may be omitted in some cases. CLINICAL DECISIONS SHOULD BE BASED ON THE PRIMARY CLINICAL RECORDS. [employer] provides no warranty or guarantee of the accuracy or completeness of information in this document.
[2024-03-21 13:28] LABS: Microalbumin Urine Random <1.3 mg/dL (<=30.0)
[2024-03-21 13:41] LABS: Anion Gap 17.6; Carbon Dioxide 22.6 mmol/L (21.0-32.0); Chloride 103 mmol/L (98-107); Glucose 92 mg/dL (74-106); Potassium 4.2 mmol/L (3.5-5.1); Sodium 139 mmol/L (136-145)
[2024-03-21 13:42] LABS: Estimated GFR (African America >60 (>=60 mL/min/1.73m^2); Estimated GFR (Non-African Ame 54 (>=60 mL/min/1.73m^2); TSH W/ REFLEX FT4 58.238 uIU/mL (0.358-3.740)
[2024-03-21 14:02] LABS: Free T4 0.68 ng/dL (0.76-1.46)
== END 2024-03-21 12:29 | disposition home or self-care (01) ==
LOC: LAB 12:29
DX: N18.31 Chronic kidney disease, stage 3a (principal); E03.8 Other specified hypothyroidism; E06.3 Autoimmune thyroiditis
CPT/HCPCS: 36415; 80048; 82043; 82570; 84439; 84443

== ENCOUNTER 2025-01-21 11:07 | Outpatient (OUT) | payer MEDICARE, SELFPAY ==
--- OUTSIDE RECORDS SUMMARY | 2025-01-21 11:12 | XMS_ITS | CCD ---
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 Name Role Phone Lebron Hogan Admitting Unavailable Lebron Hogan Attending Unavailable Freeman Jaffe Primary Care Unavailable OBRIEN, JESSICA S Admitting Unavailable OBRIEN, JESSICA S Attending Unavailable ARLEEN MENDOZA Primary Care Unavailable OBRIEN, JESSICA S Consulting Unavailable OBRIEN, JESSICA S Admitting Unavailable OBRIEN, JESSICA S Attending Unavailable ARLEEN MENDOZA Primary Care Unavailable OBRIEN, JESSICA S Consulting Unavailable OBRIEN, JESSICA S Admitting Unavailable OBRIEN, JESSICA S Attending Unavailable ARLEEN MENDOZA Primary Care Unavailable AISHA EL Consulting Unavailable OBRIEN, JESSICA S Admitting Unavailable OBRIEN, JESSICA S Attending Unavailable ARLEEN MENDOZA Primary Care Unavailable MISC, DOCTOR Admitting Unavailable MISC, DOCTOR Attending Unavailable ARLEEN MENDOZA Primary Care Unavailable MISC, DOCTOR Consulting Unavailable ALYSSA LOUIS Consulting Unavailable MISC, DOCTOR Admitting Unavailable MISC, DOCTOR Attending Unavailable MISC, DOCTOR Consulting Unavailable ALYSSA LOUIS R Consulting Unavailable ARLEEN MENDOZA Primary Care Unavailable SAMSA, SIENA Admitting Unavailable SAMSA, SIENA Attending Unavailable AIDEN SANTAMARIA Consulting Unavailable BARRINGTON STOKES Consulting Unavailable SAMSA, SIENA Consulting Unavailable NANETTE COTO Consulting Unavailable Aiden Santamaria MD Primary Care Provider Aimee MALDONADO, Olimpia Unavailable Aiden Santamaria MD Primary Care Provider [phone] Aimee MALDONADO, Olimpia Unavailable CAMILLA RECINOS Attending Unavailable CAMILLA RECINOS Attending Unavailable OLIMPIA YU Referring UnavailForest Pitts DO Unavailable Medications Current Medications Medication Drug Class(es) Dates Sig (Normalized) Sig (Original) [id number] 200 actuat albuterol 0.09 mg/actuat metered dose inhaler (20 sources) beta2-Adrenergi c Agonist Start: 02-21-2024 End: 02-21-2024 take 2 puff(s) by inhalation every four hours for wheezing albuterol HFA 90 mcg/act inhaler Indications: Asthma , Chronic Obstructive Pulmonary Disease , Pulmonary Emphysema Inhale 2 puffs every 4 (four) hours if needed for wheezing or shortness of breath 18 g 3 02/21/2024 Active diphenhydrAMINE 12.5 MG/5ML elixir 20 mL, aluminum-magnesium hydroxide-simethicone 400-400-40 MG/5ML suspension 20 mL, lidocaine 2 % solution 20 mL (20 sources) diphenhydrAMINE 12.5 MG/5ML elixir 20 mL, aluminum-magnesium hydroxide-simethicon e 400-400-40 MG/5ML suspension 20 mL, lidocaine 2 % solution 20 mL Swish and spit 15 mL every 4 (four) hours if needed for mucositis Active 30 actuat fluticasone furoate 0.1 mg/actuat / umeclidinium 0.0625 mg/actuat / vilanterol 0.025 mg/actuat dry powder inhaler (20 sources) Anticholinergic , Corticosteroid, beta2-Adrenergi c Agonist Start: 02-21-2024 End: 07-27-2024 take 1 puff(s) by inhalation once daily Fluticasone-Umeclidi n-Vilant (Trelegy Ellipta) 100-62.5-25 MCG/ACT aerosol powder Indications: Pulmonary emphysema, unspecified emphysema type (CMS/HCC) Inhale 1 puff Daily 60 each 2 07/27/2024 Active levothyroxine sodium 0.15 mg oral tablet (20 sources) l-Thyroxine Start: 03-23-2024 End: 05-16-2025 take 1 tablet by mouth before mealtime levothyroxine (Synthroid, Levoxyl) 150 MCG tablet 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 Take before meals. 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 Take before meals. 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 Take 1 tablet (5 mcg) by mouth Daily 30 tablet 11 05/16/2024 05/16/2025 Active liothyronine (Cy tomel) 50 MCG tablet 1 (one) time each day at the same time Active pantoprazole 40 mg delayed release oral tablet (20 sources) Proton Pump Inhibitor Start: 05-16-2024 take 1 tablet by mouth once daily pantoprazole (Protonix) 40 MG EC tablet Indications: Hiatal hernia with GERD and esophagitis Take 1 tablet (40 mg) by mouth 1 (one) time each day at the same time 90 tablet 05/16/2024 Active Start: 02-21-2024 End: 05-13-2024 take 1 tablet by mouth once daily pantoprazole (Protonix) 40 MG EC tablet Indications: Hiatal hernia with GERD and esophagitis Take 1 tablet (40 mg) by mouth 1 (one) time each day at the same time 90 tablet 03/26/2024 05/13/2024 Discontinued (Reorder) pregabalin 75 mg oral capsule (20 sources) Start: 10-27-2024 take 1 capsule by mouth in the morning pregabalin (Lyrica) 75 MG capsule Indications: Fibromyalgia Syndrome , Neuropathic Pain Take 1 capsule (75 mg) by mouth in the morning and 1 capsule (75 mg) before bedtime. 60 capsule 2 10/27/2024 Active Start: 05-16-2024 End: 08-31-2024 take 1 capsule by mouth in the morning pregabalin (Lyrica) 75 MG capsule Indications: Fibromyalgia Syndrome , Neuropathic Pain Take 1 capsule (75 mg) by mouth in the morning and 1 capsule (75 mg) before bedtime. 60 capsule 2 08/01/2024 Active Start: 02-21-2024 End: 05-13-2024 take 1 capsule by mouth in the morning pregabalin (Lyrica) 75 MG capsule Indications: Fibromyalgia Syndrome , Neuropathic Pain Take 1 capsule (75 mg) by mouth in the morning and 1 capsule (75 mg) before bedtime. 60 capsule 2 02/21/2024 05/13/2024 Discontinued (Reorder) End: 02-21-2024 pregabalin (Lyrica) 150 MG c apsule Take 75 mg by mouth in the morning and 75 mg before bedtime. 02/21/2024 Discontinued 1 mg dose 1.5 ml semaglutide 1.34 mg/ml pen injector (20 sources) Start: 06-28-2024 inject 1 mg by subcutaneous injection every week semaglutide (Ozempic) 2 MG/1.5ML solution pen-injector Indications: Morbid obesity (CMS-HCC) Inject 1 mg under the skin 1 (one) time per week 1.5 mL 11 06/28/2024 Active Start: 05-16-2024 End: 06-24-2024 inject 1 mg by subcutaneous injection every week semaglutide (Ozempic) 2 MG/1.5ML solution pen-injector Indications: Morbid obesity (CMS/HCC) Inject 1 mg under the skin 1 (one) time per week 1.5 mL 11 05/16/2024 06/24/2024 Discontinued (Reorder) Start: 03-26-2024 End: 05-16-2024 inject 0.5 mg by subcutaneous injection every week semaglutide (Ozempic) 2 MG/1.5ML solution pen-injector Indications: Morbid obesity (CMS/HCC) Inject 0.5 mg under the skin 1 (one) time per week 1.5 mL 1 03/26/2024 05/16/2024 Discontinued (Dose adjustment) tiZANidine 2 mg oral capsule (20 sources) Central alpha-2 Adrenergic Agonist Start: 10-27-2024 End: 01-25-2025 take 1 capsule by mouth every eight hours for muscle spasms tiZANidine (Zanaflex) 2 MG capsule Indications: Spinal stenosis of thoracolumbar region Take 1 capsule (2 mg) by mouth every 8 (eight) hours if needed for muscle spasms 90 capsule 3 10/27/2024 01/25/2025 Active Start: 05-16-2024 End: 09-13-2024 take 1 capsule by mouth every eight hours for muscle spasms tiZANidine (Zanaflex) 2 MG capsule Indications: Spinal stenosis of thoracolumbar region Take 1 capsule (2 mg) by mouth every 8 (eight) hours if needed for muscle spasms 90 capsule 3 05/16/2024 09/13/2024 Active End: 05-13-2024 take 1 capsule by mouth every eight hours as needed tiZANidine (Zanaflex) 2 MG capsule Take 2 mg by mouth every 8 (eight) hours if needed for muscle spasms 05/13/2024 Discontinued (Reorder) Completed/Discontinued Medications Medication Drug Class(es) Dates Sig (Normalized) Sig (Original) acetaminophen 325 mg / oxyCODONE hydrochloride 5 mg oral tablet (20 sources) Opioid Agonist Start: 03-21-2024 End: 01-29-2025 take 1 tablet by mouth every eight hours for pain oxyCODONE-acetaminop hen (Percocet) 5-325 MG tablet Indications: Degeneration of intervertebral disc of lumbosacral region , Primary osteoarthritis involving multiple joints , Spinal stenosis of thoracolumbar region Take 1 tablet by mouth every 8 (eight) hours if needed for severe pain 90 tablet 12/01/2024 12/28/2024 Discontinued (Reorder) Start: 02-21-2024 End: 03-18-2024 take 1 tablet by mouth every eight hours for pain oxyCODONE-acetaminophen (Percocet) 5-325 MG tablet Indications: Degeneration of intervertebral disc of lumbosacral region , Primary osteoarthritis involving multiple joints , Spinal stenosis of thoracolumbar region Take 1 tablet by mouth every 8 (eight) hours if needed for severe pain 90 tablet 02/21/2024 03/18/2024 Discontinued (Reorder) End: 02-21-2024 take 1 tablet by mouth every six hours as needed for pain oxyCODONE-acetaminophen (Percocet) 5-325 MG tablet Take 1 tablet by mouth every 6 (six) hours if needed for severe pain 02/21/2024 Discontinued (Reorder) predniSONE 20 mg oral tablet (9 sources) Start: 10-05-2023 End: 03-26-2024 take 2 tablets by mouth once daily predniSONE (Deltasone) 20 MG tablet TAKE 2 TABLETS BY MOUTH EVERY DAY FOR 5 DAYS 10/05/2023 03/26/2024 Discontinued (Therapy completed) Semaglutide-Weight Management (Wegovy) 0.25 MG/0.5ML solution auto-injector (7 sources) Start: 02-27-2024 End: 03-26-2024 inject 0.25 mg by subcutaneous injection every week Semaglutide-Weight Management (Wegovy) 0.25 MG/0.5ML solution auto-injector Indications: Morbid obesity (CMS/HCC) Inject 0.25 mg under the skin 1 (one) time per week 0.5 mL 3 02/27/2024 03/26/2024 Discontinued (Therapy completed) Start: 02-27-2024 End: 03-28-2024 inject 0.25 mg by subcutaneous injection every week Semaglutide-Weight Management (Wegovy) 0.25 MG/0.5ML solution auto-injector Indications: Morbid obesity (CMS/HCC) Inject 0.25 mg under the skin 1 (one) time per week 0.5 mL 3 02/27/2024 03/28/2024 Active sucralfate 1000 mg oral tablet (20 sources) Aluminum Complex Start: 02-21-2024 End: 08-01-2024 sucralfate (Carafate) 1 g tablet Indications: Hiatal hernia with GERD and esophagitis TAKE 1 TAB IN THE MORNING,1 TAB AT NOON AND 1 TAB IN THE EVENING AND 1 TAB BEFORE BEDTIME WITH MEALS 360 tablet 1 02/29/2024 08/01/2024 Discontinued (Therapy completed) End: 02-21-2024 sucralfate (Carafate) 1 g ta blet every 12 (twelve) hours 02/21/2024 Discontinued (Reorder) 0.5 ml SUMAtriptan 8 mg/ml auto-injector (19 sources) Serotonin-1b and Serotonin-1d Receptor Agonist End: 08-01-2024 SUMAtriptan Succinate (Imitrex STATdose System) 4 MG/0.5ML solution auto-injector every 12 (twelve) hours 08/01/2024 Discontinued (Therapy completed) topiramate 100 mg oral tablet (4 sources) End: 02-21-2024 topiramate (Topamax) 100 MG tablet every 12 (twelve) hours 02/21/2024 Discontinued (Side effects) Problems Active Problems Problem Classification Problem Date Documented Da te Episodic/Chronic Anxiety disorders (20 sources) Anxiety; Translations: [Anxiety disorder, unspecified] Onset: 01-31-2024 01-31-2024 Chronic Asthma (20 sources) Mild intermittent asthma with (acute) exacerbation; Translations: [Asthma] Onset: 03-26-2020 01-31-2024 Chronic Attention-deficit, conduct, and disruptive behavior disorders (20 sources) Attention deficit hyperactivity disorder; Translations: [Attention-deficit hyperactivity disorder, unspecified type] 02-27-2024 Chronic Cardiac dysrhythmias (1 source) Tachycardia, unspecified; Translations: [TACHYCARDIA UNSPECIFIED] Onset: 03-26-2020 Episodic Chronic kidney disease (20 sources) Chronic kidney disease stage 3A ; Translations: [Stage 3a chronic kidney disease (HCC)] Onset: 02-21-2024 Resolved: 02-21-2024 02-21-2024 Chronic Chronic obstructive pulmonary disease and bronchiectasis (20 sources) Chronic obstructive pulmonary disease with (acute) exacerbation; Translations: [Pulmonary emphysema] Onset: 03-26-2020 01-31-2024 Chronic Diseases of white blood cells (1 source) Elevated white blood cell count, unspecified; Translations: [ELEVATED WHITE BLOOD CELL COUNT UNS] Onset: 03-26-2020 Chronic Headache; including migraine (20 sources) Migraine with aura; Translations: [Migraine with aura, not intractable, without status migrainosus] Onset: 07-29-2012 01-31-2024 Chronic Immunizations and screening for infectious disease (1 source) Contact with and (suspected) exposure to other viral communicable diseases; Translations: [CONTCT EXPS OTH VIRL COMMUNICABL DZ] Onset: 03-26-2020 Episodic Lung disease due to external agents (1 source) Bronchitis and pneumonitis due to chemicals, gases, fumes and vapors; Translations: [BRONCHIT PNEUMONIT D/T CHEM GAS VPR] Onset: 03-26-2020 Episodic Malaise and fatigue (20 sources) Chronic fatigue syndrome; Translations: [Chronic fatigue syndrome with fibromyalgia] Onset: 01-31-2024 01-31-2024 Chronic Menopausal disorders (20 sources) Atrophy of vagina; Translations: [Postmenopausal atrophic vaginitis] Onset: 01-31-2024 01-31-2024 Chronic Mood disorders (20 sources) Depressive disorder; Translations: [Depression] Onset: 01-31-2024 01-31-2024 Chronic Osteoarthritis (20 sources) Degenerative joint disease involving multiple joints; Translations: [Primary generalized (osteo)arthritis] Onset: 07-29-2012 03-18-2024 Chronic Other aftercare (1 source) Other fci (current) drug therapy; Translations: [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] Onset: 03-26-2020 Episodic Other gastrointestinal disorders (20 sources) Irritable bowel syndrome; Translations: [Irritable bowel syndrome without diarrhea] Onset: 07-29-2012 01-31-2024 Chronic Other gastrointestinal disorders (1 source) Constipation, unspecified; Translations: [CONSTIPATION UNSPECIFIED] Onset: 03-26-2020 Episodic Other hereditary and degenerative nervous system conditions (1 source) Restless legs syndrome; Translations: [RESTLESS LEGS SYNDROME] Onset: 05-13-2019 Chronic Other inflammatory condition of skin (20 sources) Discoid lupus erythematosus; Translations: [Discoid lupus erythematosus] Onset: 01-31-2024 01-31-2024 Chronic Other lower respiratory disease (3 sources) Shortness of breath; Translations: [SHORTNESS OF BREATH] Onset: 03-14-2020 Episodic Other nervous system disorders (1 source) Chronic pain syndrome; Translations: [CHRONIC PAIN SYNDROME] Onset: 06-28-2019 Chronic Other nervous system disorders (20 sources) Narcolepsy; Translations: [Narcolepsy without cataplexy] Onset: 01-31-2024 01-31-2024 Chronic Other nervous system disorders (20 sources) Neuropathy; Translations: [Polyneuropathy, unspecified] Onset: 01-31-2024 01-31-2024 Chronic Other nutritional; endocrine; and metabolic disorders [...] OBES D/T EXCESS ALLEGRA] Onset: 06-28-2019 Chronic Other nutritional; endocrine; and metabolic disorders (20 sources) Morbid obesity; Translations: [Morbid (severe) obesity due to excess calories] Onset: 07-29-2012 01-31-2024 Chronic Other screening for suspected conditions (not mental disorders or infectious disease) (20 sources) Patient encounter status; Translations: [Encounter for other screening for malignant neoplasm of breast] Onset: 02-27-2024 Resolved: 10-27-2024 02-27-2024 Episodic Poisoning by nonmedicinal substances (1 source) Toxic effect of detergents, accidental (unintentional), initial encounter; Translations: [TOXIC EFF DETERGENTS ACC INIT ENC] Onset: 03-26-2020 Prolapse of female genital organs (20 sources) Disorder of rectum; Translations: [Rectocele] Onset: 01-31-2024 01-31-2024 Chronic Residual codes; unclassified (20 sources) Obstructive sleep apnea syndrome; Translations: [Obstructive sleep apnea (adult) (pediatric)] Onset: 02-21-2024 02-21-2024 Chronic Residual codes; unclassified (1 source) Patient's noncompliance with other medical treatment and regimen; Translations: [PT NONCOMPLIANCE OTH MED TX AND REGIMEN] Onset: 03-26-2020 Episodic Residual codes; unclassified (1 source) Sleep apnea, unspecified; Translations: [SLEEP APNEA UNSPECIFIED] Onset: 05-13-2019 Spondylosis; intervertebral disc disorders; other back problems (20 sources) Sacroiliitis, not elsewhere classified; Translations: [Spondylosis without myelopathy or radiculopathy, thoracic region] Onset: 07-29-2012 03-18-2024 Chronic Spondylosis; intervertebral disc disorders; other back problems (20 sources) Low back pain; Translations: [Pain in thoracic spine] Onset: 07-29-2012 03-18-2024 Episodic Substance-related disorders (12 sources) Nicotine dependence, cigarettes, uncomplicated; Translations: [Tobacco dependence caused by cigarettes] Onset: 03-26-2020 08-01-2024 Chronic Thyroid disorders (20 sources) Hypothyroidism, unspecified; Translations: [Hypothyroidism] Onset: 07-29-2012 01-31-2024 Chronic Unclassified (1 source) M35.9 - Systemic involvement of connective tissue, unspecified; Translations: [M35.9 - Systemic involvement of connective tissue, unspecified] Onset: 04-13-2018 Viral infection (20 sources) 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; 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] Onset: 07-29-2012 01-31-2024 Episodic Past or Other Problems Problem Classification Problem Date Documented Da te Episodic/Chronic Abdominal hernia (20 sources) Hernia of abdominal cavity; Translations: [Unspecified abdominal hernia without obstruction or gangrene] Onset: 01-31-2024 01-31-2024 Episodic Nausea and vomiting (20 sources) Nausea; Translations: [Nausea] Onset: 02-17-2024 02-17-2024 Episodic Other bone disease and musculoskeletal deformities (20 sources) Postmenopausal osteopenia; Translations: [Other specified disorders of bone density and structure, unspecified site] Onset: 01-31-2024 01-31-2024 Episodic Other connective tissue disease (4 sources) Other muscle spasm; Translations: [OTHER MUSCLE SPASM] Onset: 06-20-2019 Episodic Other connective tissue disease (20 sources) Myositis; Translations: [Myositis, unspecified] Onset: 07-29-2012 01-31-2024 Episodic Other fractures (1 source) Collapsed vertebra, [...] use; Translations: [TOBACCO USE] Onset: 05-13-2019 Episodic Residual codes; unclassified (20 sources) Tobacco user; Translations: [Tobacco use] Onset: 01-31-2024 Resolved: 08-01-2024 01-31-2024 Episodic Residual codes; unclassified (20 sources) Family history of blood coagulation disorder; Translations: [Family history of diseases of the blood and blood-forming organs and certain disorders involving the immune mechanism] Onset: 01-31-2024 01-31-2024 Episodic Results Test Name Value Interpretation Reference Range Facility [facility] MICROALB CREAT RATIO RAN DOMon 03-21-2024 CREATININE URINE RANDOM 215.9 mg/dL 20.00 - 300.00 mg/dL [facility] MICROALBUMIN URINE RANDOM <1.3 NINF - 30.0 mg/dL [facility] MLR HEMOGLOBIN A1Con 024 Glucose [Mass/Vol] 105 mg/dL [facility] HbA1c (Bld) [Mass fraction] 5.3 % 4.5 - 6.2 % [facility] Comment on above: ADA RECOMMENDED LIMI T 4.0 - 6.0 ADA THERAPEUTIC TARGET < 7.0 ACTION SUGGESTED > 7.[facility]O [facility] 03-15-2020 Basophils (Bld) [#/Vol] 0.0 103/ul Normal 0.0-0.1 [facility] Comment on above: Performed By: #### C BC ####[facility] [address] [place], [place] [address]Gesrwb Andie Basophils/100 WBC (Bld) 0.1 % Critically low 0.2-2.0 [facility] Comment on above: Performed By: #### C BC ####[facility] [address] [place], [place] [address]Jbdyeq Andie Eosinophils (Bld) [#/Vol] 0.0 103/ul Normal 0.0-0.7 [facility] Comment on above: Performed By: #### C BC ####[facility] [address] [place], [place] [address]Bloyva Andie Eosinophils/100 WBC (Bld) 0.0 % Critically low 0.9-7.0 [facility] Comment on above: Performed By: #### C BC ####[facility] [address] [place], [place] [address]Dwngrz Andie Erythrocyte distribution width (RBC) [Ratio] 13.4 % Normal 11.0-15.0 [facility] Comment on above: Performed By: #### C BC ####[facility] [address] [place] [id number] Chaves Hematocrit (Bld) [Volume fraction] 42.2 % Normal 36.0-48.0 [facility] Comment on above: Performed By: #### C BC ####[facility] [address] [place] [id number] Chaves Hemoglobin (Bld) [Mass/Vol] 13.9 g/dL Normal 12.0-16.0 [facility] Comment on above: Performed By: #### C BC ####[facility] [address] [place], [place] [phone] Andie IG # 0.13 10e3/ul Critically high 0.00-0.03 [facility] Comment on above: Performed By: #### C BC ####[facility] [address] [place] [address] Andie IG % 0.9 % Critically high 0.0-0.5 [facility] Comment on above: Performed By: #### C BC ####[facility] [address] [place], [place] [phone] Andie Lymphocytes (Bld) [#/Vol] 0.9 103/ul Critically low 1.2-3.8 [facility] Comment on above: Performed By: #### C BC ####[facility] [address] [place], [place] [phone] Andie Lymphocytes/100 WBC (Bld) 6.4 % Critically low 20.5-60.0 [facility] Comment on above: Performed By: #### C BC ####[facility] [address] [place] [phone] Andie MANUAL DIFF REQ NO Normal [facility] Comment on above: Performed By: #### C BC ####[facility] [address] [place] [phone] Andie MCH (RBC) [Entitic mass] 32.0 pg Normal 26.7-34.0 [facility] Comment on above: Performed By: #### C BC ####[facility] [address] [place], [place] [address]Kjbbeg Karen MCHC (RBC) [Mass/Vol] 32.9 g/dL Normal 29.9-35.2 [facility] Comment on above: Performed By: #### C BC ####[facility] [address] [place], [place] [address]Dghpyb Andie MCV (RBC) [Entitic vol] 97.2 fL Normal 81.0-99.0 [facility] Comment on above: Performed By: #### C BC ####[facility] [address] [place], [place] [address]Vcpvza Andie Monocytes (Bld) [#/Vol] 0.7 103/ul Normal 0.3-0.8 [facility] Comment on above: Performed By: #### C BC ####[facility] [address] [place], [place] [phone] Andie Monocytes/100 WBC (Bld) 4.7 % Normal 1.7-12.0 [facility] Comment on above: Performed By: #### C BC ####[facility] [address] [place] [address]Iqaggs Andie Neutrophils (Bld) [#/Vol] 13.0 103/ul Critically high 1.4-6.5 [facility] Comment on above: Performed By: #### C BC ####[facility] [address] [place] [address]Bhwldz Andie Neutrophils/100 WBC (Bld) 87.9 % Critically high 43.0-75.0 [facility] Comment on above: Performed By: #### C BC ####[facility] [address] [place], [place] [address]Yxiymi Andie Platelet mean volume (Bld) [Entitic vol] 8.8 fL Critically low 9.5-13.5 [facility] Comment on above: Performed By: #### C BC ####[facility] [address] [place] [address]Sunkiv Andie Platelets (Bld) [#/Vol] 286 103/ul Normal 150-450 [facility] Comment on above: Performed By: #### C BC ####[facility] [address] [place] [address] Andie RBC (Bld) [#/Vol] 4.34 106/ul Normal 4.20-5.40 [facility] Comment on above: Performed By: #### C BC ####[facility] [facility] [address] [place] [address] Andie WBC (Bld) [#/Vol] 14.8 103/ul Critically high 4.0-11.0 [place] Comment on above: Performed By: #### C BC ####[facility] R[address] [place] [address] Andie ER URINE PROFILEon 0 Bilirubin [Mass/Vol] Negative Normal NEGATIVE [facility] Comment on above: Performed By: #### E RUR ####[facility] Pt[address]jdic[address] [place] [address] Andie BLOOD Negative Normal NEGATIVE [facility] Comment on above: Performed By: #### E RUR ####[facility] P[address] [place] [address] Andie Clarity (U) CLEAR Normal [facility] Comment on above: Performed By: #### E RUR ####[facility] [address] [place] [address] Andie Color (U) YELLOW Normal YELLOW [facility] Comment on above: Performed By: #### E RUR ####[facility] Q[address] [place] [address] Andie ERUAHD A micrscopic examination will be performed if indicated. Normal The [facility] Comment on above: Performed By: #### E RUR ####[facility] R[address] [place] [address] Andie Glucose [Mass/Vol] Negative Normal NEGATIVE The [facility] Comment on above: Performed By: #### E RUR ####[facility] [address] [place] [id number] Andie Ketones Ql (U) Negative Normal NEGATIVE The [facility] Comment on above: Performed By: #### E RUR ####[facility] [address] [place] [address] Andie Nitrite Ql (U) Negative Normal NEGATIVE [facility] Comment on above: Performed By: #### E RUR ####[facility] Sh[address] [place] [address] Andie pH (Bld) 5.0 Normal 5-9 [facility] Comment on above: Performed By: #### E RUR ####[facility] O[address] [place] [address] Andie Protein (U) [Mass/Vol] Negative Normal [facility] Comment on above: Performed By: #### E RUR ####[facility] G[address] [place] [address] Andie SPEC GRAVITY 1.020 Normal 1.005-<=1.025 [facility] Comment on above: Performed By: #### E RUR ####[facility] Lcvitrrj[address] [place] [address] Andie UR MICRO IND NOT INDICATED Normal [facility] Comment on above: Performed By: #### E RUR ####[facility] E[address]ob[address] [place] [address] Andie Urobilinogen Qn (U) 0.2 EU/dl Normal [facility] Comment on above: Performed By: #### E RUR ####[facility] Aop[address]sp[address] [place] [address] Andie WBC (Bld) [#/Vol] Negative Normal NEGATIVE [facility] Comment on above: Performed By: #### E RUR ####[facility] Lpqdnqxled[address] [place] [address] Andie BNPon 03-13-2020 Natriuretic peptide B (Bld) [Mass/Vol] 100.0 pg/mL Normal <=900.0 [facility] Comment on above: Performed By: #### B GYROSCOPE TECHNICIAN, TSH, TROP, CMP #### [facility] [address] [place], [place] [id number] Amanda Andie CBC AUTO DIFFon 03-13-2020 Basophils (Bld) [#/Vol] 0.1 103/ul Normal 0.0-0.1 The [facility] Comment on above: Performed By: #### C BC #### [facility] [address] [place], [place] [id number] Amanda Andie Basophils/100 WBC (Bld) 0.3 % Normal 0.2-2.0 The [facility] Comment on above: Performed By: #### C BC #### [facility] [address] [place] [address] Amanda Andie Eosinophils (Bld) [#/Vol] 0.1 103/ul Normal 0.0-0.7 The [facility] Comment on above: Performed By: #### C BC #### [facility] [address] [place] [address] Amanda Andie Eosinophils/100 WBC (Bld) 0.6 % Critically low 0.9-7.0 [facility] Comment on above: Performed By: #### C BC #### [facility] [address] [place] [address] Amanda Andie Erythrocyte distribution width (RBC) [Ratio] 13.3 % Normal 11.0-15.0 [facility] Comment on above: Performed By: #### C BC #### [facility] [address] [place] [address] Amanda Andie Hematocrit (Bld) [Volume fraction] 47.9 % Normal 36.0-48.0 The [facility] Comment on above: Performed By: #### C BC #### [facility] [address] [place], [place] [address] Amanda Andie Hemoglobin (Bld) [Mass/Vol] 16.0 g/dL Normal 12.0-16.0 [facility] Comment on above: Performed By: #### C BC #### [facility] [address] [place] [address] Amanda Andie IG # 0.12 10e3/ul Critically high 0.00-0.03 [facility] Comment on above: Performed By: #### C BC #### [facility] [address] [place], [place] [address] Amandasusan Chaves IG % 0.7 % Critically high 0.0-0.5 [facility] Comment on above: Performed By: #### C BC #### [facility] [address] [place], [place] [address] Amanda Andie Lymphocytes (Bld) [#/Vol] 3.8 103/ul Normal 1.2-3.8 The [facility] Comment on above: Performed By: #### C BC #### [facility] [address] [place], [place] [address] Amanda Chaves Lymphocytes/100 WBC (Bld) 21.9 % Normal 20.5-60.0 [facility] Comment on above: Performed By: #### C BC #### [facility] [address] [place], [place] [address] Amandasusan Chaves MANUAL DIFF REQ NO Normal [facility] Comment on above: Performed By: #### C BC #### [facility] [address] [place], [place] [address] Amandasusan Chaves MCH (RBC) [Entitic mass] 32.9 pg Normal 26.7-34.0 [facility] Comment on above: Performed By: #### C BC #### [facility] [address] [place], [place] [address] Amandasusan Chaves MCHC (RBC) [Mass/Vol] 33.4 g/dL Normal 29.9-35.2 [facility] Comment on above: Performed By: #### C BC #### [facility] [address] [place], [place] [address] Amanda Andie MCV (RBC) [Entitic vol] 98.4 fL Normal 81.0-99.0 [facility] Comment on above: Performed By: #### C BC #### [facility] [address] [place], [place] [address] Amanda Andie Monocytes (Bld) [#/Vol] 1.2 103/ul Critically high 0.3-0.8 [facility] Comment on above: Performed By: #### C BC #### [facility] [address] [place], [place] [address] Amanda Andie Monocytes/100 WBC (Bld) 6.6 % Normal 1.7-12.0 [facility] Comment on above: Performed By: #### C BC #### [facility] [address] [place], [place] [address] Amanda Andie Neutrophils (Bld) [#/Vol] 12.2 103/ul Critically high 1.4-6.5 [facility] Comment on above: Performed By: #### C BC #### [facility] [address] [place] [address] Amanda Andie Neutrophils/100 WBC (Bld) 69.9 % Normal 43.0-75.0 [facility] Comment on above: Performed By: #### C BC #### [facility] [address] [place], [place] [address] Amanda Andie Platelet mean volume (Bld) [Entitic vol] 8.9 fL Critically low 9.5-13.5 [facility] Comment on above: Performed By: #### C BC #### [facility] [address] [place] [address] Amanda Andie Platelets (Bld) [#/Vol] 367 103/ul Normal 150-450 [facility] Comment on above: Performed By: #### C BC #### [facility] [address] [place], [place] [address] Amanda Andie RBC (Bld) [#/Vol] 4.87 106/ul Normal 4.20-5.40 [facility] Comment on above: Performed By: #### C BC #### [facility] [address] [place], [place] [address] Amanda Andie WBC (Bld) [#/Vol] 17.5 103/ul Critically high 4.0-11.0 [place] Comment on above: Performed By: #### C BC #### [facility] [address] [place] [address] Amanda Chaves CTA CHEST WO W CONon [...] NANETTE COTO Date: 2020-03-13 21:48 Normal The [facility] LACTATE/LACTIC ACIDon 2019 Lactate [Moles/Vol] 1.3 mmol/L Normal 0.7-2.0 [facility] Comment on above: Performed By: #### L ACT #### [facility] [address] [place], [place] [address] Amanda Andie PH VENOUS BLOODon 03-13-2020 PCO2 VENOUS 56.5 mmHg Critically high 40.0-52.0 [facility] Comment on above: Performed By: #### P HVEN #### [facility] [address] [place], [place] [address] Amanda Andie pH VENOUS 7.30 Critically low 7.33-7.43 [facility] Comment on above: Performed By: #### P HVEN #### [facility] [address] [place], [place] [address] Amandasusan Chaves PROCALCITONINon 03-13-2020 PCT header 1 SEE BELOW Normal [facility] Comment on above: Result Comment: PCT <0.5ng/mL: Systemic infection (sepsis) is not likely, local bacterial infection possible, low risk for progression to severe systemic infection (severe sepsis) Performed By: #### P RL ####[facility] [address] [place], [place] [address]Etmpsl Andie PCT header 2 SEE BELOW Normal [facility] Comment on above: Result Comment: PCT >/=0.5 and <2 ng/mL: Systemic infection (sepsis) is possible, moderate risk for progression to severe systemic infection (severe sepsis) Performed By: #### P RL ####[facility] Rd[address]jyuu[address] Andie PCT header 3 SEE BELOW Normal [facility] Comment on above: Result Comment: PCT >/=2.0 and <10 ng/mL: Systemic infection (sepsis) is likely, unless other causes are known, high risk for progession to severe systemic infection(severe sepsis) Performed By: #### P RL ####[facility] [address] [place] [address] Andie PCT header 4 SEE BELOW Normal [facility] Comment on above: Result Comment: PCT >/= 10 ng/mL: Important systemic inflammatory response almost exclusively due to severe bacterial sepsis or septic shock, high likelihood of severe sepsis or septic shock Performed By: #### P RL ####[facility] [address] [place] [address] Andie PROCALCITONIN <0.05 Normal 0.00-0.50 [facility] Comment on above: Performed By: #### P RL ####[facility] [address] [place] [address] Andie PROF 14(COMP METB)on 020 Albumin [Mass/Vol] 3.8 g/dL Normal 3.5-5.0 [facility] Comment on above: Performed By: #### B GYROSCOPE TECHNICIAN, TSH, TROP, CMP ####[facility] [address] [place] [address] Andie Albumin/Globulin [Mass ratio] 0.8 {ratio} Normal [facility] Comment on above: Performed By: #### B GYROSCOPE TECHNICIAN, TSH, TROP, CMP ####[facility] [address] [place] [address] Andie ALP [Catalytic activity/Vol] 87 U/L Normal 38-126 [facility] Comment on above: Performed By: #### B GYROSCOPE TECHNICIAN, TSH, TROP, CMP ####[facility] [address] [place] [address] Andie ALT [Catalytic activity/Vol] 17 U/L Normal 9-52 [facility] Comment on above: Performed By: #### B GYROSCOPE TECHNICIAN, TSH, TROP, CMP ####[facility] [address] [place] [phone] Andie Anion gap [Moles/Vol] 13.1 mmol/L Normal Th [facility] Comment on above: Performed By: #### B GYROSCOPE TECHNICIAN, TSH, TROP, CMP ####[facility] [address] [place] [phone] Andie AST [Catalytic activity/Vol] 11 U/L Critically low 14-36 [facility] Comment on above: Performed By: #### B GYROSCOPE TECHNICIAN, TSH, TROP, CMP ####[facility] [address] Andie Bilirubin Ql (U) 0.3 mg/dL Normal 0.2-1.3 [facility] Comment on above: Performed By: #### B GYROSCOPE TECHNICIAN, TSH, TROP, CMP ####[facility] [address] [place], [place] [address]Ger[address] Andie Calcium [Mass/Vol] 9.8 mg/dL Normal 8.4-10.2 The [facility] Comment on above: Performed By: #### B GYROSCOPE TECHNICIAN, TSH, TROP, CMP ####[facility] [address] [place] [address] Andie Chloride [Moles/Vol] 104 mmol/L Normal 98-107 [facility] Comment on above: Performed By: #### B GYROSCOPE TECHNICIAN, TSH, TROP, CMP ####[facility] [address] [place] [phone] Andie CO2 [Moles/Vol] 27.6 mmol/L Normal 22.0-30.0 [facility] Comment on above: Performed By: #### B GYROSCOPE TECHNICIAN, TSH, TROP, CMP ####[facility] [address] [place] [phone] Andie Creatinine [Mass/Vol] 1.08 mg/dL Critically high 0.52-1.04 [facility] Comment on above: Performed By: #### B GYROSCOPE TECHNICIAN, TSH, TROP, CMP ####[facility] [address] [place], [place] [address]Wrlcsa Andie EGFR-AF SOUTH [place]ESE >60 Normal >=60 [facility] Comment on above: Performed By: #### B GYROSCOPE TECHNICIAN, TSH, TROP, CMP ####[facility] [address] [place], [place] [address]Tsjfuy Andie EGFR-NON AF S[place] 53 mL/min/1.73m2 Critically low >=60 [facility] Comment on above: Performed By: #### B GYROSCOPE TECHNICIAN, TSH, TROP, CMP ####[facility] [address] [place], [place] [address]Gtassn Andie Globulin (S) [Mass/Vol] 4.5 g/dL Normal [facility] Comment on above: Performed By: #### B GYROSCOPE TECHNICIAN, TSH, TROP, CMP ####[facility] [address] [place], [place] [address]Afqcjh Andie Glucose [Mass/Vol] 132 mg/dL Critically high 74-106 [place] Comment on above: Performed By: #### B GYROSCOPE TECHNICIAN, TSH, TROP, CMP ####[facility] Sox[address] [place], [place] [address]Tpjuwi Andie Potassium [Moles/Vol] 3.7 mmol/L Normal 3.4-5.0 [facility] Comment on above: Performed By: #### B GYROSCOPE TECHNICIAN, TSH, TROP, CMP ####[facility] [address] [place], [place] [address]Lrub[address] Andie Protein [Mass/Vol] 8.3 g/dL Critically high 6.1-8.2 [place] Comment on above: Performed By: #### B GYROSCOPE TECHNICIAN, TSH, TROP, CMP ####[facility] [address] [place], [place] [address]Ehxoce Andie Sodium [Moles/Vol] 141 mmol/L Normal 137-145 [facility] Comment on above: Performed By: #### B GYROSCOPE TECHNICIAN, TSH, TROP, CMP ####[facility] N[address]wh[address]75[address] [place], [place] [address]Aqvfed Andie Urea nitrogen [Mass/Vol] 14.0 mg/dL Normal 7.0-17.0 The [facility] Comment on above: Performed By: #### B GYROSCOPE TECHNICIAN, TSH, TROP, CMP ####[facility] [address] [place] [address] Andie Urea nitrogen/Creatinine [Mass ratio] 13.0 mg/mg Normal [facility] Comment on above: Performed By: #### B GYROSCOPE TECHNICIAN, TSH, TROP, CMP ####[facility] [address] [place] [address] Andie PROTIMEon 03-13-2020 INR Coag (PPP) [Relative time] 0.99 {INR} Normal The [facility] Comment on above: Performed By: #### P TT, PT ####[facility] [address] [place] [address] Andie PT Coag (PPP) [Time] 10.5 s Normal 9.0-11.6 The [facility] Comment on above: Performed By: #### P TT, PT ####[facility] [address] [place] [address] Andie PT Coag (PPP) [Time] SEE BELOW Normal The [facility] Comment on above: Result Comment: ROBERT RED INR: 2.0 - 3.0 CONDITIONS NOT LISTED BELOW 2.5 - 3.5 FOR PROSTHETIC HEART VALVE REPLACEMENT 2.5 - 3.5 RECURRENT THROMBOSIS Performed By: #### P TT, PT ####[facility] R[address] [place] [address] Andie PT Coag (PPP) [Time] PLEASE NOTE: NORMAL RANGE CHANGE 02-23-2014 DUE TO REAGENT LOT CHANGE Normal The [facility] Comment on above: Performed By: #### P TT, PT ####[facility] [address] [place] [address] Andie PTTon 03-13-2020 aPTT Coag (Bld) [Time] 31.6 s Normal 22.3-36.2 The [facility] Comment on above: Performed By: #### P TT, PT ####[facility] [address] [place] [address] Andie aPTT Coag (Bld) [Time] PLEASE NOTE: NORMAL RANGE CHANGE 05-02-2015 DUE TO REAGENT LOT CHANGE Normal The [facility] Comment on above: Performed By: #### P TT, PT ####[facility] [address] [place] [address] Andie RESPIRATORY PANEL PLUSon Adenovirus NOT DETECTED Normal NOT DETECTED [facility] Comment on above: Performed By: #### R SPLUS ####[facility] [address] [place] [address] Andie B. Parapertusis NOT DETECTED Normal NOT DETECTED [facility] Comment on above: Performed By: #### R SPLUS ####[facility] [address] [place] [address] Andie B. Pertussis NOT DETECTED Normal NOT DETECTED [facility] Comment on above: Performed By: #### R SPLUS ####[facility] [address]wiwc[address] [place] [address] Andie Chlamydia Pneumoniae NOT DETECTED Normal NOT DETECTED The [facility] Comment on above: Performed By: #### R SPLUS ####[facility] [address] [place] [address] Coronavirus 229E NOT DETECTED Normal NOT DETECTED The [facility] Comment on above: Performed By: #### R SPLUS ####[facility] [address] [place], [place] [address] Coronavirus HKU1 NOT DETECTED Normal NOT DETECTED The [facility] Comment on above: Performed By: #### R SPLUS ####[facility] Of[address] [place], [place] [address] Coronavirus NL63 NOT DETECTED Normal NOT DETECTED The [facility] Comment on above: Performed By: #### R SPLUS ####[facility] [address] [place] [address] Coronavirus OC43 NOT DETECTED Normal NOT DETECTED The [facility] Comment on above: Performed By: #### R SPLUS ####[facility] [address] [place] [address] Andie Influenza A H1 2009 NOT DETECTED Normal NOT DETECTED [facility] Comment on above: Performed By: #### R SPLUS ####[facility] Aouwehmgpn[address] Andie Influenza B NOT DETECTED Normal NOT DETECTED The [facility] Comment on above: Performed By: #### R SPLUS ####[facility] I[address]xyd[address] Andie Metapneumovirus NOT DETECTED Normal NOT DETECTED [facility] Comment on above: Performed By: #### R SPLUS ####[facility] Nzeccx[address]rfy[address] Andie Mycoplas. Pneumoniae NOT DETECTED Normal NOT DETECTED The [facility] Comment on above: Performed By: #### R SPLUS ####[facility] T[address]moqm[address] Andie Parainfluenza 1 NOT DETECTED Normal NOT DETECTED [facility] Comment on above: Performed By: #### R SPLUS ####[facility] B[address]vpsej[address] Andie Parainfluenza 2 NOT DETECTED Normal NOT DETECTED [facility] Comment on above: Performed By: #### R SPLUS ####[facility] Saomim[address]zjn[address] Andie Parainfluenza 3 NOT DETECTED Normal NOT DETECTED [facility] Comment on above: Performed By: #### R SPLUS ####[facility] Fxjqsgidxl[address]24 [address] Andie Parainfluenza 4 NOT DETECTED Normal NOT DETECTED [facility] Comment on above: Performed By: #### R SPLUS ####[facility] Pgkedxnhsl[address]15 [address] Andie Rhino/Enterovirus NOT DETECTED Normal NOT DETECTED The [facility] Comment on above: Performed By: #### R SPLUS ####[facility] [address] [place] [address] Andie RP2 Header 1 RESPIRATORY PANEL: VIRUSES Normal The [facility] Comment on above: Performed By: #### R SPLUS ####[facility] [address]jr[address] RP2 Header 2 RESPIRATORY PANEL: BACTERIA Normal The [facility] Comment on above: Performed By: #### R SPLUS ####[facility] [address] [place] [address] RP2 Header 4 EUA SEE BELOW Normal [facility] Comment on above: Result Comment: This test is not yet approved or cleared by the [place] FDA. When there are no FDA-approved or cleared tests available, and other criteria are met, FDA can make tests available under an emergency access mechanism called an Emergency Use Authorization (EUA). The EUA for this test is supported by the [employer] Lead of Health and Human Service?s (HHS?s) declaration [...] be used). Performed By: #### R SPLUS ####[facility] [address] [place] [address] RSV NOT DETECTED Normal NOT DETECTED [facility] Comment on above: Performed By: #### R SPLUS ####[facility] [id number] [place] [address] SARS-CoV-2: COVID-19 NOT DETECTED Normal NOT DETECTED [facility] Comment on above: Performed By: #### R SPLUS ####[facility] [id number] [place] [address] TROPONIN - Ion 03-13-2020 Troponin I.cardiac [Mass/Vol] ng/mL Normal <=0.034 [facility] Comment on above: Performed By: #### B GYROSCOPE TECHNICIAN, TSH, TROP, CMP ####[facility] [id number] [place] [address] Troponin I.cardiac [Mass/Vol] SEE BELOW Normal [facility] Comment on above: Result Comment: <0.0 34 ng/ml NEGATIVE 0.034-0.119 INDETERMINATE 0.120 AMI CUT OFF Performed By: #### B GYROSCOPE TECHNICIAN, TSH, TROP, CMP ####[facility] [id number] TSHon 03-13-2020 TSH Qn 11.996 uIU/mL Critically high 0.470-4.680 [facility] Comment on above: Performed By: #### B GYROSCOPE TECHNICIAN, TSH, TROP, CMP ####[facility] [id number] TSH Qn SEE BELOW Normal [facility] Comment on above: Result Comment: <0.3 4 UIU/ml HYPERTHYROID 0.34-5.60 UIU/ml EUTHYROID >5.60 UIU/ml HYPOTHYROID Performed By: #### B GYROSCOPE TECHNICIAN, TSH, TROP, CMP ####[facility] [id number] MRI LSPINE WO CONon 10-21-19 20 MRI [...] by: ALYSSA LOUIS Date: 2019-10-21 15:50 Normal [facility] MRI CSPINE WO CONon 10-19-19 MRI [facility] WO CON EXAMINATION: MRI [facility] WO CON HISTORY: Spondylosis without myelopathy COMPARISON: [...] by: ALYSSA LOUIS Date: 2019-10-19 15:31 Normal [facility] MRI TSPINE WO CONon 10-19-19 MRI [facility] WO CON EXAMINATION: MRI TSPINE WO CON HISTORY: Spondylosis without myelopathy COMPARISON: [...] by: ALYSSA LOUIS Date: 2019-10-19 15:36 Normal [facility] CONSULTATIONon 06-20-2019 CONSULTATION CONSULTATION PAIN MANAGEMENT [...] pain are sitting, lying down, heat, Flexeril, [place], lidocaine patches topically, and Voltaren gel. On [...] is noted to the bilateral lower extremities. MUSCULOSKELETAL:Int act with no motor weaknesses to the bilateral [...] to reevaluate her pain. Dictated by Aisha El APRN [facility] Signed and Approved by: AISHA EL 07/18/2019 12:39:00 Normal [facility] 05-10-2019 CONSULTATION CONSULTATION PAIN MANAGEMENT Consultation Date: 05-10-19 CHIEF COMPLAINT: 1. Mid back pain. 2. Low back pain. 3. Restless legs. HISTORY OF PRESENT ILLNESS: Today in the office I saw Mercedes Wills. This is a 53 year-old female who is referred to us by Dr. Arleen Mendoza. The patient has had chronic pain. The [...] Education was done about continuing this trendline. ABDOMEN:Protuberant , distended. At a height of 5'2 , the patient weighs 289 pounds. BACK:The patient has loss of lumbar lordosis. Pelvic is rotated anteriorly. Extension, compression, and direct palpation along the posterior elements aggravate and reproduce the pain symptomatology, concordant with facet arthropathy and lumbar spondylosis. EXTREMITIES:Pedal edema is present. MUSCULOSKELETAL:Int act in the lower extremities, the patient does have varus deformity in her knees. NEUROLOGICALLY:No radicular symptomatology is present. The patient is hyper-focused. PSYCHIATRICALLY:Aff ect is appropriate. IMPRESSION: 1. Low back pain. [...] and would like to proceed. cc:Dr. Arleen Mendoza [facility] Signed and Approved by: DR JESSICA OBRIEN 05/17/2019 13:36:00 Normal [facility] Vital Signs Date Time Vital Sign Value Performing Clinician Susannah trinidad 08-01-2024 19:39-0500 Heart rate 122 /min Camilla Recinos GYROSCOPE TECHNICIAN Work Phone: [facility] 08-01-2024 14:40-0500 Body height 152.4 cm Camillamyron Recinos GYROSCOPE TECHNICIAN Work Phone: [facility] 08-01-2024 14:40-0500 Body mass index (BMI) [Ratio] 57.77 kg/m2 Camilla Jorje GYROSCOPE TECHNICIAN Work Phone: [facility] 08-01-2024 14:40-0500 Body temperature 98.1 [degF] Camilla Jorje GYROSCOPE TECHNICIAN Work Phone: [facility] 08-01-2024 14:40-0500 Body weight 134.17 kg Camilla Jorje GYROSCOPE TECHNICIAN Work Phone: [facility] 08-01-2024 14:40-0500 Diastolic blood pressure 82 mm[Hg] Camilla Jorje GYROSCOPE TECHNICIAN Work Phone: [facility] 08-01-2024 14:40-0500 Respiratory rate 20 /min Camilla Jorje GYROSCOPE TECHNICIAN Work Phone: [facility] 08-01-2024 14:40-0500 SaO2% (BldA) [Mass fraction] 96 % Camilla Recinos GYROSCOPE TECHNICIAN Work Phone: [facility] 08-01-2024 14:40-0500 Systolic blood pressure 122 mm[Hg] Camilla Aichholz GYROSCOPE TECHNICIAN Work Phone: [facility] 03-26-2024 19:19-0400 Body height 152.4 cm Olimpia Yu GYROSCOPE TECHNICIAN Work Phone: [facility] 03-26-2024 19:19-0400 Body mass index (BMI) [Ratio] 64.84 kg/m2 Olimpia Yu GYROSCOPE TECHNICIAN Work Phone: [facility] 03-26-2024 19:19-0400 Body temperature 97.3 [degF] Olimpia Yu GYROSCOPE TECHNICIAN Work Phone: [facility] 03-26-2024 19:19-0400 Body weight 150.59 kg Olimpia Yu GYROSCOPE TECHNICIAN Work Phone: [facility] 03-26-2024 19:19-0400 Diastolic blood pressure 78 mm[Hg] Olimpia Yu GYROSCOPE TECHNICIAN Work Phone: [facility] 03-26-2024 19:19-0400 Heart rate 89 /min Olimpia Yu GYROSCOPE TECHNICIAN Work Phone: [facility] 03-26-2024 19:19-0400 Respiratory rate 18 /min Olimpia Yu GYROSCOPE TECHNICIAN Work Phone: [facility] 03-26-2024 19:19-0400 SaO2% (BldA) [Mass fraction] 93 % Olimpia Yu GYROSCOPE TECHNICIAN Work Phone: [facility] 03-26-2024 19:19-0400 Systolic blood pressure 117 mm[Hg] Olimpia Yu GYROSCOPE TECHNICIAN Work Phone: [facility] 02-21-2024 18:52-0400 Body height 154.9 cm Olimpia Yu GYROSCOPE TECHNICIAN Work Phone: [facility] 02-21-2024 18:52-0400 Body mass index (BMI) [Ratio] 64.24 kg/m2 Olimpia Yu GYROSCOPE TECHNICIAN Work Phone: [facility] 02-21-2024 18:52-0400 Body temperature 98.2 [degF] Olimpia Yuzpatrick GYROSCOPE TECHNICIAN Work Phone: [facility] 02-21-2024 18:52-0400 Body weight 154.22 kg Olimpia Yu GYROSCOPE TECHNICIAN Work Phone: [facility] 02-21-2024 18:52-0400 Diastolic blood pressure 90 mm[Hg] Olimpia Yu GYROSCOPE TECHNICIAN Work Phone: [facility] 02-21-2024 18:52-0400 Heart rate 102 /min Olimpia Yu GYROSCOPE TECHNICIAN Work Phone: [facility] 02-21-2024 18:52-0400 Respiratory rate 18 /min Olimpia Yu GYROSCOPE TECHNICIAN Work Phone: [facility] 02-21-2024 18:52-0400 SaO2% (BldA) [Mass fraction] 95 % Olimpia Yu GYROSCOPE TECHNICIAN Work Phone: [facility] 02-21-2024 18:52-0400 Systolic blood pressure 136 mm[Hg] Olimpia Yu GYROSCOPE TECHNICIAN Work Phone: [facility] Healthcare Encounters Encounter Date Encounter Type Care Provider Facility Start: 12-28-2024 End: 12-30-2024 Refill Camilla Rosemaryz GYROSCOPE TECHNICIAN Work Phone: [facility] Comment on above: Degeneration of inte rvertebral disc of lumbosacral region; Primary osteoarthritis involving multiple joints; Spinal stenosis of thoracolumbar region Start: 12-01-2024 End: 12-01-2024 Refill Camilla Aichholz GYROSCOPE TECHNICIAN Work Phone: [facility] Comment on above: Degeneration of inte rvertebral disc of lumbosacral region; Primary osteoarthritis involving multiple joints; Spinal stenosis of thoracolumbar region Start: 10-27-2024 End: 10-27-2024 ambulatory CAMILLA AICHHOLZ Not Available Start: 10-05-2024 End: 10-06-2024 Refill Camilla Recinos NP Work Phone: [facility] Comment on above: Degeneration of inte rvertebral disc of lumbosacral region; Primary osteoarthritis involving multiple joints; Spinal stenosis of thoracolumbar region Start: 09-08-2024 End: 09-08-2024 Telephone encounter Camilla Recinos NP Work Phone: [facility] Start: 09-06-2024 End: 09-08-2024 Refill Camilla Recinos GYROSCOPE TECHNICIAN Work Phone: [facility] Comment on above: Degeneration of inte rvertebral disc of lumbosacral region; Primary osteoarthritis involving multiple joints; Spinal stenosis of thoracolumbar region Start: 08-08-2024 End: 08-08-2024 Refill Aiden Santamaria MD Work Phone: [facility] Comment on above: Degeneration of inte rvertebral disc of lumbosacral region; Primary osteoarthritis involving multiple joints; Spinal stenosis of thoracolumbar region Start: 08-01-2024 End: 08-01-2024 Office outpatient visit 25 minutes Camilla Recinos GYROSCOPE TECHNICIAN Work Phone: [facility] Comment on above: Hypothyroidism, unsp ecified type (CMS/HCC) (Primary Dx); Chronic kidney disease, stage 3a (HCC) (CMS/HCC); Obstructive sleep apnea; Spinal stenosis of thoracolumbar region; Asthma, unspecified asthma severity, unspecified whether complicated, unspecified whether persistent (CMS/HCC); Pulmonary emphysema, unspecified emphysema type (CMS/HCC); Hiatal hernia with GERD and esophagitis; Morbid obesity (CMS/HCC); Anxiety; Depression, unspecified depression type (CMS/HCC); Migraine with aura and without status migrainosus, not intractable (CMS/HCC); Cigarette nicotine dependence without complication; Neuropathy; Chronic fatigue syndrome with fibromyalgia; Post herpetic neuralgia (CMS/HCC) Start: 08-01-2024 End: 08-01-2024 ambulatory CAMILLA RECINOS Not Available Start: 08-01-2024 End: 08-01-2024 Bamboo flowsheet Camilla Jorje GYROSCOPE TECHNICIAN Work Phone: [facility] Start: 08-01-2024 End: 08-01-2024 Bamboo flowsheet Camilla Jorje GYROSCOPE TECHNICIAN Work Phone: [facility] Start: 07-27-2024 End: 07-27-2024 Refill Olimpia Yu GYROSCOPE TECHNICIAN Work Phone: [facility] Comment on above: Pulmonary emphysema, unspecified emphysema type (CMS/HCC) Start: 07-08-2024 End: 07-11-2024 Refill Olimpia Yu GYROSCOPE TECHNICIAN Work Phone: [facility] Comment on above: Degeneration of inte rvertebral disc of lumbosacral region; Primary osteoarthritis involving multiple joints; Spinal stenosis of thoracolumbar region Start: 06-24-2024 End: 06-28-2024 Refill Olimpia Nicolek GYROSCOPE TECHNICIAN Work Phone: [facility] Comment on above: Morbid obesity (CMS/ HCC) Start: 06-12-2024 End: 06-13-2024 Refill Olimpia Hamptontrick GYROSCOPE TECHNICIAN Work Phone: [facility] Comment on above: Degeneration of inte rvertebral disc of lumbosacral region; Primary osteoarthritis involving multiple joints; Spinal stenosis of thoracolumbar region Start: 05-16-2024 End: 05-16-2024 Orders Only Olimpia Hamptontrick GYROSCOPE TECHNICIAN Work Phone: [facility] Comment on above: Morbid obesity (CMS/ HCC) (Primary Dx) Start: 05-13-2024 End: 05-16-2024 Refill Olimpia Yu GYROSCOPE TECHNICIAN Work Phone: 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); Morbid obesity (CMS/HCC); Hiatal hernia with GERD and esophagitis; Degeneration of intervertebral disc of lumbosacral region; Primary osteoarthritis involving multiple joints; Spinal stenosis of thoracolumbar region Start: 04-18-2024 End: 04-18-2024 Refill Olimpia Nicolek GYROSCOPE TECHNICIAN Work Phone: [facility] Comment on above: Degeneration of inte rvertebral disc of lumbosacral region; Primary osteoarthritis involving multiple joints; Spinal stenosis of thoracolumbar region Start: 03-26-2024 End: 03-26-2024 Home visit est pt mod-hi severity 40 minutes Olimpia Yu GYROSCOPE TECHNICIAN Work Phone: [facility] Comment on above: Degeneration of inte rvertebral disc of lumbosacral region with discogenic back pain and lower extremity pain (Primary Dx); Obstructive sleep apnea; Pulmonary emphysema, unspecified emphysema type (CMS/HCC); Morbid obesity (CMS/HCC); 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 External Department Unsolicited Start: 03-21-2024 End: 03-21-2024 Clinisync Result Encounter Olimpia Hamptontrick GYROSCOPE TECHNICIAN Work Phone: [facility] External Department Unsolicited Start: 03-18-2024 End: 03-18-2024 Orders Only Olimpia Hamptontrick GYROSCOPE TECHNICIAN Work Phone: [facility] Comment on above: Degeneration of inte rvertebral disc of lumbosacral region; Primary osteoarthritis involving multiple joints; Spinal stenosis of thoracolumbar region Start: 03-09-2024 End: 03-09-2024 ambulatory OLIMPIA HAMPTONTRICK Not Available Start: 02-29-2024 End: 02-29-2024 Refill Olimpia Nicolek GYROSCOPE TECHNICIAN Work Phone: [facility] Comment on above: Hiatal hernia with G ERD and esophagitis Start: 02-27-2024 Encounter for genera l adult medical examination with abnormal findings Olimpia Yu GYROSCOPE TECHNICIAN Work Phone: [facility] Healthcare Start: 02-25-2024 End: 02-25-2024 Encounter for general adult medical examination with abnormal findings Olimpia Yu GYROSCOPE TECHNICIAN Work Phone: [facility] Healthcare Start: 02-25-2024 End: 02-25-2024 Initial preventive medicine new patient 40-64yrs Olimpia Yu GYROSCOPE TECHNICIAN Work Phone: [facility] Comment on above: Neuropathy (Primary Dx); Hiatal hernia with GERD and esophagitis; 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); Degeneration of intervertebral disc of lumbosacral region; Primary osteoarthritis involving multiple joints; Morbid obesity (CMS/HCC); Chronic fatigue syndrome with fibromyalgia; Spinal stenosis of thoracolumbar region; Post herpetic neuralgia (CMS/HCC); Stage 3a chronic kidney disease (HCC) (CMS/HCC); Obstructive sleep apnea; Pulmonary emphysema, unspecified emphysema type (CMS/HCC); Abnormal wellness exam; Screening for colon cancer Start: 02-06-2024 End: 02-06-2024 Clinisync Result Encounter Olimpia Yu GYROSCOPE TECHNICIAN Work Phone: [facility] External Department Unsolicited Start: 02-06-2024 End: 02-06-2024 Clinisync Result Encounter Olimpia Yu GYROSCOPE TECHNICIAN Work Phone: [facility] External Department Unsolicited Start: 01-31-2024 End: 02-05-2024 Orders Only Olimpia Yu GYROSCOPE TECHNICIAN Work Phone: 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) (Primary Dx); Chronic fatigue syndrome with fibromyalgia; DLE (discoid lupus erythematosus) (CMS/HCC); Morbid obesity (CMS/HCC); Osteopenia after menopause; Family history of bleeding or clotting disorder Start: 03-14-2020 End: 03-16-2020 Evaluation and management of inpatient ARLEEN MENDOZA Facility: Start: 10-21-2019 End: 10-22-2019 Patient encounter procedure DOCTOR MISC Facility:[facility] Start: 10-19-2019 End: 10-20-2019 Patient encounter procedure DOCTOR MISC Facility:[facility] Start: 07-25-2019 Patient encounter procedure JESSICA OBRIEN Facility: Start: 06-20-2019 End: 06-21-2019 Patient encounter procedure JESSICA S OBRIEN Facility:[facility] Start: 05-24-2019 End: 05-24-2019 Patient encounter procedure JESSICA S OBRIEN Facility:[facility] Start: 05-10-2019 End: 05-11-2019 Patient encounter procedure JESSICA S CAMILLE Facility:[facility] Start: 04-13-2018 End: 04-13-2018 Patient encounter procedure Lebron Hogan Facility:[facility] Procedures Date Procedure Procedure Detail Performing Clinician Start: 03-21-2024 [facility] MICROALB CREAT R ATIO RANDOM Olimpia Yu GYROSCOPE TECHNICIAN Work Phone: Start: 02-06-2024 MLR HEMOGLOBIN A1C Lenora Yu GYROSCOPE TECHNICIAN Work Phone: Start: 03-13-2020 End: 03-13-2020 Microscopic examination of blood, culture JESSICA OBRIEN Comment on above: Performed By: #### B LDCX2 ####[facility] [id number] [place] Performed By: #### B LDCX1 ####[facility] [id number] [place] Start: 08-11-2012 Colonoscopy Olimpia monk GYROSCOPE TECHNICIAN Work Phone: Plan of Treatment Date Care Activity Detail Author Start: 02-24-2025 Medicare Annual Well ness (AWV) Medicare Annual Wellness (AWV) [facility] Start: 01-30-2025 End: 01-30-2025 Patient encounter procedure 01/30/2025 2:00 PM EDT Office Visit [facility] [address] [place] [address] Camilla Recinos NP [address] [place] [address] [facility] Start: 10-27-2024 End: 10-27-2024 Patient encounter procedure 10/27/2024 1:00 PM EDT Office Visit [facility] [address] [place] [address] Camilla Recinos, ERICA [address] [place] [address] [facility] Start: 08-01-2024 End: 08-01-[address] [facility] Comment on above: Obstructive sleep ap ugo (Primary Dx); Chronic kidney disease, stage 3a (HCC) (CMS/HCC); Spinal stenosis of thoracolumbar region; Asthma, unspecified asthma severity, unspecified whether complicated, unspecified whether persistent (CMS/HCC); Pulmonary emphysema, unspecified emphysema type (CMS/HCC); Hiatal hernia with GERD and esophagitis; Hypothyroidism, unspecified type (CMS/HCC); Morbid obesity (CMS/HCC); Anxiety; Depression, unspecified depression type ([facility]/HCC); Migraine with aura and without status migrainosus, not intractable (CMS/HCC); Cigarette nicotine dependence without complication; Neuropathy Start: 08-01-2024 End: 08-01-2025 CBC W Auto Differential panel - Blood CBC and differential Lab Routine Obstructive sleep apnea Asthma, unspecified asthma severity, unspecified whether complicated, unspecified whether persistent (CMS/HCC) Pulmonary emphysema, unspecified emphysema type (CMS/HCC) Expected: 08/01/2024 (Approximate), Expires: 08/01/2025 [facility] Comment on above: Expected: 08/01/2024 (Approximate), Expires: 08/01/2025 Start: 08-01-2024 End: 08-01-2025 Comprehensive metabolic 2000 panel - Serum or Plasma Comprehensive metabolic panel Lab Routine Chronic kidney disease, stage 3a (HCC) (CMS/HCC) Expected: 08/01/2024 (Approximate), Expires: 08/01/2025 [facility] Comment on above: Expected: 08/01/2024 (Approximate), Expires: 08/01/2025 Start: 08-01-2024 End: 08-01-2025 Lipid 1996 panel - Serum or Plasma Lipid panel Lab Routine Hypothyroidism, unspecified type (CMS/HCC) Morbid obesity (CMS/HCC) Expected: 08/01/2024 (Approximate), Expires: 08/01/2025 [facility] Work Phone: Comment on above: Expected: 08/01/2024 (Approximate), Expires: 08/01/2025 Start: 08-01-2024 End: 08-01-2025 Thyrotropin [Units/volume] in Serum or Plasma TSH Lab Routine Hypothyroidism, unspecified type (CMS/HCC) Expected: 08/01/2024 (Approximate), Expires: 08/01/2025 [facility] Comment on above: Expected: 08/01/2024 (Approximate), Expires: 08/01/2025 Start: 08-01-2024 End: 08-01-2025 Thyroxine (T4) free [Mass/volume] in Serum or Plasma T4, free Lab Routine Hypothyroidism, unspecified type (CMS/HCC) Expected: 08/01/2024 (Approximate), Expires: 08/01/2025 [facility] Comment on above: Expected: 08/01/2024 (Approximate), Expires: 08/01/2025 Start: 08-01-2024 End: 08-01-2025 Urinalysis complete panel - Urine Urinalysis with reflex microscopic (clean catch) Lab Routine Cigarette nicotine dependence without complication Expected: 08/01/2024 (Approximate), Expires: 08/01/2025 [facility] Comment on above: Expected: 08/01/2024 (Approximate), Expires: 08/01/2025 Start: 06-08-2024 Screening for malign ant neoplasm of breast Mammogram [facility] Comment on above: Postponed from 06/18 (Patient Refused) Start: 06-08-2024 Screening for malign ant neoplasm of cervix Cervical Cancer Screening [facility] Comment on above: Postponed from 06/18 (Other Patient Reasons) Start: 03-26-2024 End: 03-26-2025 Basic metabolic 1998 panel - Serum or Plasma Basic metabolic panel Lab Routine Stage 3a chronic kidney disease (HCC) (CMS/HCC) Expected: 03/26/2024 (Approximate), Expires: 03/26/2025 [facility] Comment on above: Expected: 03/26/2024 (Approximate), Expires: 03/26/2025 Start: 03-26-2024 End: 03-26-2025 TSH W/REFLEX TO FT4 TSH W/REFLEX TO FT4 Lab Routine 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 ([facility]/HCC) Expected: 03/26/2024 (Approximate), Expires: 03/26/2025 [facility] Work Phone: Comment on above: Expected: 03/26/2024 (Approximate), Expires: 03/26/2025 Start: 03-03-2024 End: 03-03-2024 Professional / ancillary services management 03/03/2024 11:00 AM EDT Ancillary Procedure [facility] [address] [place] [id number] [facility] Start: 02-27-2024 End: 02-26-2025 Noninvasive colorectal cancer DNA and occult blood screening [Presence] in Stool Cologuard colon cancer screening Lab Routine Screening for colon cancer Expected: 02/27/2024 (Approximate), Expires: 02/26/2025 [facility] Comment on above: Expected: 02/27/2024 (Approximate), Expires: 02/26/2025 Start: 02-22-2024 End: 02-21-2025 Basic metabolic 1998 panel - Serum or Plasma Basic metabolic panel Lab Routine Stage 3a chronic kidney disease (HCC) ([facility]/HCC) Expected: 02/22/2024 (Approximate), Expires: 02/21/2025 [facility] Comment on above: Expected: 02/22/2024 (Approximate), Expires: 02/21/2025 Start: 02-22-2024 End: 02-21-2025 Microalbumin/Creatinine panel in random Urine Microalbumin / creatinine urine ratio Lab Routine Stage 3a chronic kidney disease (HCC) (CMS/HCC) Expected: 02/22/2024 (Approximate), Expires: 02/21/2025 [facility] Comment on above: Expected: 02/22/2024 (Approximate), Expires: 02/21/2025 Start: 02-21-2024 End: 02-20-2026 Echocardiogram 2D complete Echocardiogram 2D complete Echocardiography Routine Stage 3a chronic kidney disease (HCC) ([facility]) Obstructive sleep apnea Expected: 02/21/2024 (Approximate), Expires: 02/20/2026 [facility] Work Phone: Comment on above: Expected: 02/21/2024 (Approximate), Expires: 02/20/2026 Start: 02-21-2024 End: 02-20-2025 Pulmonary function report Pulmonary Function Test Imaging Routine Obstructive sleep apnea Pulmonary emphysema, unspecified emphysema type ([facility]) Expected: 02/21/2024 (Approximate), Expires: 02/20/2025 [facility] Comment on above: Expected: 02/21/2024 (Approximate), Expires: 02/20/2025 Start: 02-07-2024 Influenza vaccination Influenza Vacc ine (#1) [facility] Start: 01-31-2024 End: 01-30-2025 25-hydroxyvitamin D3 [Mass/volume] in Serum or Plasma Vitamin D 25 hydroxy Lab Routine Osteopenia after menopause Expected: 01/31/2024 (Approximate), Expires: 01/30/2025 [facility] Comment on above: Expected: 01/31/2024 (Approximate), Expires: 01/30/2025 Start: 01-31-2024 End: 01-30-2025 CBC W Auto Differential panel - Blood CBC and differential Lab Routine Congenital hypothyroidism with diffuse goiter ([facility]) Chronic fatigue syndrome with fibromyalgia DLE (discoid lupus erythematosus) ([facility] [facility]) Morbid obesity ([facility]) Family history of bleeding or clotting disorder Expected: 01/31/2024 (Approximate), Expires: 01/30/2025 [facility] Comment on above: Expected: 01/31/2024 (Approximate), Expires: 01/30/2025 Start: 01-31-2024 End: 01-30-2025 Cobalamin (Vitamin B12) [Mass/volume] in Serum or Plasma Vitamin B12 Lab Routine Chronic fatigue syndrome with fibromyalgia Family history of bleeding or clotting disorder Expected: 01/31/2024 (Approximate), Expires: 01/30/2025 [facility] Comment on above: Expected: 01/31/2024 (Approximate), Expires: 01/30/2025 Start: 01-31-2024 End: 01-30-2025 Comprehensive metabolic 2000 panel - Serum or Plasma Comprehensive metabolic panel Lab Routine Congenital hypothyroidism with diffuse goiter (CMS/HCC) Chronic fatigue syndrome with fibromyalgia DLE (discoid lupus erythematosus) (CMS/HCC) Morbid obesity (CMS/HCC) Expected: 01/31/2024 (Approximate), Expires: 01/30/2025 [facility] Comment on above: Expected: 01/31/2024 (Approximate), Expires: 01/30/2025 Start: 01-31-2024 End: 01-30-2025 Ferritin [Mass/volume] in Serum or Plasma Ferritin Lab Routine Chronic fatigue syndrome with fibromyalgia Family history of bleeding or clotting disorder Expected: 01/31/2024 (Approximate), Expires: 01/30/2025 [facility] Comment on above: Expected: 01/31/2024 (Approximate), Expires: 01/30/2025 Start: 01-31-2024 End: 01-30-2025 Hemoglobin A1c/Hemoglobin.total in Blood Hemoglobin A1c Lab Routine Congenital hypothyroidism with diffuse goiter (CMS/HCC) DLE (discoid lupus erythematosus) (CMS/HCC) Morbid obesity (CMS/HCC) Expected: 01/31/2024 (Approximate), Expires: 01/30/2025 [facility] Comment on above: Expected: 01/31/2024 (Approximate), Expires: 01/30/2025 Start: 01-31-2024 End: 01-30-2025 Iron + transferrin + TIBC Iron + transferrin + TIBC Lab Routine Chronic fatigue syndrome with fibromyalgia Family history of bleeding or clotting disorder Expected: 01/31/2024 (Approximate), Expires: 01/30/2025 [facility] Comment on above: Expected: 01/31/2024 (Approximate), Expires: 01/30/2025 Start: 01-31-2024 End: 01-30-2025 Lipid 1996 panel - Serum or Plasma Lipid panel Lab Routine Morbid obesity (CMS/HCC) Expected: 01/31/2024 (Approximate), Expires: 01/30/2025 [facility] Comment on above: Expected: 01/31/2024 (Approximate), Expires: 01/30/2025 Start: 01-31-2024 End: 01-30-2025 TSH W/REFLEX TO FT4 TSH W/REFLEX TO FT4 Lab Routine Chronic fatigue syndrome with fibromyalgia DLE (discoid lupus erythematosus) (CMS/HCC) Morbid obesity (CMS/HCC) Expected: 01/31/2024 (Approximate), Expires: 01/30/2025 [facility] Work Phone: Comment on above: Expected: 01/31/2024 (Approximate), Expires: 01/30/2025 Start: 08-11-2022 Screening for malign ant neoplasm of colon [facility] Start: 2007 Screening for malign ant neoplasm of breast Mammogram [facility] Start: 1997 Screening for malign ant neoplasm of cervix [facility] Start: 1988 Screening for malign ant neoplasm of cervix Pap Smear [facility] Start: 1967 Medicare Annual Well ness (AWV) Medicare Annual Wellness (AWV) [facility] Start: 1967 Screening for malign ant neoplasm of colon [facility] Start: 1967 Screening for malign ant neoplasm of lung Lung Cancer Screening Shared Decision Making [facility] Immunizations Immunization Date Immunization Notes Care Provider Fa cility 03-13-2020 influenza, high dose seasonal, preservative-free Camilla Recinos NP Work Phone: [facility] 03-13-2020 pneumococcal conjuga te vaccine, 13 valent Camilla Recinos GYROSCOPE TECHNICIAN Work Phone: [facility] Payers Date Payer Category Payer Medicare (Managed Care) [id number]. [id number] 2021 Medicare [id number] 2018 Medicare [id number] 2018 Self-pay 2018 Unknown [id number] 2016 Medicare [id number] 1967 Unknown [id number] 2.16.84 [id number] 1967 Unknown [id number] 2.16.84 [id number] 1967 Unknown [id number] 2.16.84 [id number] 1967 Unknown [id number] 2.16.84 [id number] 1967 Unknown [id number] 2.16.84 [id number] 1967 Unknown [id number] 2.16.84 [id number] 1967 Unknown [id number] 2.16.84 [id number] 1967 Unknown [id number] 2.16.84 [id number] 1967 Unknown [id number] 2.16.84 [id number] 1967 Unknown [id number] 2.16.84 [id number] 1959 Medicare [id number] Medicare [id number] Unknown [id number] 2.16.84 [id number] Social History Date Type Detail Facility Start: 06-08-1981 [facility] Start: 06-08-1981 History of tobacco use Cigarette Smo ker [facility] Start: 02-21-2024 End: 10-26-2024 Cigarettes smoked current (pack per day) - Reported 1.5 [facility] Start: 02-21-2024 Tobacco use and exposure Smokeless t obacco non-user [facility] Start: 02-21-2024 End: 10-27-2024 Alcoholic beverage intake Lifetime non-drinker (finding) [facility] Start: 02-21-2024 End: 10-26-2024 Tobacco use panel [facility] Start: 1967 Sex assigned at Not on file [facility] Tobacco smoking stat [facility] Tobacco smoking consumption unknown [facility] How often do you nee d to have someone help you when you read instructions, pamphlets, or other written material from your doctor or pharmacy [SILS] Never [facility] Within the last year , have you been afraid of your partner or ex-partner? No [facility] Are you now , , , , never or living with a partner? [facility] How many standard dr inks containing alcohol do you have on a typical day? Patient does not drink [facility] How hard is it for y ou to pay for the very basics like food, housing, medical care, and heating Very hard [facility] Do you feel stress - tense, restless, nervous, or anxious, or unable to sleep at night because your mind is troubled all the time - these days [OSQ] Rather much [facility] (I/We) worried [facility] er (my/our) food would run out before (I/we) got money to buy more. Sometimes true [facility] The food that (I/we) bought just didn't last, and (I/we) didn't have money to get more. Never true [facility] In the past 12 month s, was there a time when you were not able to pay the mortgage or rent on time? Yes [facility] Clinical Notes 02-25-2024 to 09-08-2024 Telephone Encounter - CAROLE TEAGUE - 09/08/2024 8:14 AM EDTTelephone Encounter - CAROLE TEAGUE - 09/08/2024 8:14 AM EDTTelephone Encounter - Camilla Recinos NP - 09/08/2024 8:10 AM EDT Note Date & Type Note Facility 09-08-2024 Telephone encount er Note Text Analytics Leader Yes. Maximiliano, my name is Celio. I am calling from [employer]. I was informed on a mutual patient, Mercedes ade TTT more the date of 100 1163. We are needing a new signed prescription with pressure settings and supplies that signed and dated by the . And we are needing most recent office notes discussing the need for the CPAP machine why she has not been set set up yet and that she is still willing and wanting to we were told by her previous provider that she no longer is the dr. for her case and to reach out to Dr. Mcclain office, which I am doing so those notes in office or in prescription Need to be faxed [phone] have also already canceled the order. But if you guys resend that, we can open the order. If you have any questions, we can be reached to [phone]. Thank you. [facility] 09-08-2024 Miscellaneous Notes Formattin g of this note might be different from the original. Text Analytics Leader Yes. Hi, my name is Celio. I am calling from [facility] [employer]. I was informed on a mutual patient, Mercedes booker TTT more the date of 100 1163. We are needing a new signed prescription with pressure settings and supplies that signed and dated by the . And we are needing most recent office notes discussing the need for the CPAP machine why she has not been set set up yet and that she is still willing and wanting to we were told by her previous provider that she no longer is the dr. for her case and to reach out to Dr. Mcclain office, which I am doing so those notes in office or in prescription Need to be faxed [phone] have also already canceled the order. But if you guys resend that, we can open the order. If you have any questions, we can be reached to [phone]. Thank you. Please contact the patient, I would like her to see pain management for evaluation of her chronic back pain, ongoing treatment with pain medication, should be managed by Pain Management. I would like to refer her to Pain Mgmt with [facility], is she willing to go see them? [place] documented in this encounter [facility] 09-08-2024 Telephone encount er Note Please contact the patient, I would like her to see pain management for evaluation of her chronic back pain, ongoing treatment with pain medication, should be managed by Pain Management. I would like to refer her to Pain Mgmt with [facility], is she willing to go see them? [place] [facility] 08-01-2024 History of Presen t illness Narrative Associated Problem(s): Spinal stenosis Has gone through pain mgmt in the past Most recent MRI lumbar spine: Associated Problem(s): Post herpetic neuralgia (CMS/HCC) Lyrica OARRS reviewed Images from the original note were not included. Mercedes Wills is a 59 y.o. female presents with chief complaint of No chief complaint on file. HPI: Had sleep study over 4 months ago, has not had results or any titration study, AHI 16, indicative of mod JENNY Asthma/COPD: trelegy helps, but is expensive, and albuterol use twice a week Lumbar back pain: chronic, has seen pain in the past injections not a lot of help, no cauda, pain worse with standing more than 5 -10 minutes, bilat LE tingling feeling, only takes lyrica at HS Thyroid Problem Presents for follow-up visit. Symptoms include anxiety, constipation, depressed mood, diarrhea and fatigue. Patient reports no hoarse voice, palpitations, tremors or weight gain. The symptoms have been improving. SUBJECTIVE: MEDICATIONS: Current Outpatient Medications Medication Instructions albuterol HFA 90 mcg/act inhaler 2 puffs, Inhalation, Every 4 hours PRN diphenhydrAMINE 12.5 MG/5ML elixir 20 mL, aluminum-magnesium hydroxide-simethicone 400-400-40 MG/5ML suspension 20 mL, lidocaine 2 % solution 20 mL 15 mL, Every 4 hours PRN Mhtiyjmweiw-Prbnaumgx-Touubr (Trelegy Ellipta) 100-62.5-25 MCG/ACT aerosol powder 1 puff, Inhalation, Daily levothyroxine (SYNTHROID, LEVOXYL) 150 mcg, Oral, Daily before breakfast liothyronine (CYTOMEL) 5 mcg, Oral, Daily oxyCODONE-acetaminophen (Percocet) 5-325 MG tablet 1 tablet, Oral, Every 8 hours PRN pantoprazole (PROTONIX) 40 mg, Oral, Every 24 hours pregabalin (LYRICA) 75 mg, Oral, 2 times daily semaglutide (OZEMPIC) 1 mg, Subcutaneous, Weekly tiZANidine (ZANAFLEX) 2 mg, Oral, Every 8 hours PRN ALLERGIES: No Known Allergies REVIEW OF SYMPTOMS: Review of Systems Constitutional: Positive for fatigue. Negative for appetite change, chills, fever and weight gain. HENT: Negative for congestion, ear pain, hoarse voice and sore throat. Eyes: Negative for pain, discharge, redness and visual disturbance. Respiratory: Positive for shortness of breath. Negative for cough and wheezing. Cardiovascular: Negative for chest pain, palpitations and leg swelling. Gastrointestinal: Positive for constipation and diarrhea. Negative for abdominal pain, blood in stool, nausea and vomiting. Genitourinary: Negative for difficulty urinating, dysuria and frequency. Musculoskeletal: Positive for arthralgias and back pain. Negative for joint swelling and myalgias. Skin: Negative for rash and wound. Neurological: Negative for dizziness, tremors, seizures, syncope and headaches. Psychiatric/Behavioral: Negative for behavioral problems, self-injury and suicidal ideas. The patient is nervous/anxious. Depression Hematological: Does not bruise/bleed easily. Endocrine: Negative for polydipsia, polyphagia and polyuria. Allergic/Immunologic: Negative for environmental allergies and food allergies. PAST MEDICAL HISTORY Past Medical History: Diagnosis Date ADHD (attention deficit hyperactivity disorder) ([facility]) Arthritis Clotting disorder ([facility]) COPD (chronic obstructive pulmonary disease) ([facility]) Depression ([facility]/HCC) Disease of thyroid gland ([facility]/HCC) Emphysema of lung ([facility]) GERD (gastroesophageal reflux disease) Headache Neuromuscular disorder ([facility]) Obesity Osteoporosis ([facility]) Peptic ulceration Visual impairment Past Surgical History: Procedure Laterality Date BREAST SURGERY CHOLECYSTECTOMY HERNIA REPAIR HYSTERECTOMY family history includes Arthritis in her sister; Depression in her mother; Fibromyalgia in her mother and sister; Glomerulonephritis in her mother; Heart disease in her sister; Hypertension in her son; Kidney disease (age of onset: 6) in her daughter; Lupus in her sister; No Known Problems in her brother and brother; Bentley Parkinson White syndrome in her son; high blood pressure in her mother; laryngeal cancer (age of onset: 57) in her father. OBJECTIVE: Visit Vitals BP 122/82 (BP Location: Left arm, Patient Position: Sitting, BP Cuff Size: Large adult) Pulse (!) 122 Temp 98.1 F (Temporal) Resp 20 Ht 5' Wt 295 lb 12.8 oz SpO2 96% BMI 57.77 kg/m OB Status Postmenopausal Smoking Status Every Day BSA 2.38 m Physical Exam Vitals and nursing note reviewed. Constitutional: General: She is not in acute distress. Appearance: Normal appearance. She is obese. She is not ill-appearing. HENT: Head: Normocephalic and atraumatic. Right Ear: Tympanic membrane, ear canal and external ear normal. Left Ear: Tympanic membrane, ear canal and external ear normal. Nose: Nose normal. No congestion or rhinorrhea. Mouth/Throat: Mouth: Mucous membranes are moist. Pharynx: No oropharyngeal exudate or posterior oropharyngeal erythema. Eyes: Extraocular Movements: Extraocular movements intact. Conjunctiva/sclera: Conjunctivae normal. Neck: Vascular: No carotid bruit. Cardiovascular: Rate and Rhythm: Normal rate and regular rhythm. Pulses: Normal pulses. Heart sounds: Murmur heard. Pulmonary: Effort: Pulmonary effort is normal. Breath sounds: Normal breath sounds. No wheezing or rhonchi. Abdominal: General: Bowel sounds are normal. There is no distension. Palpations: Abdomen is soft. There is no mass. Tenderness: There is no abdominal tenderness. Hernia: A hernia (ventral hernia) is present. Musculoskeletal: Cervical back: Normal range of motion and neck supple. Right lower leg: No edema. Left lower leg: No edema. Comments: Decreased ROM lumbar, generalized tenderness MMT 5/5 bilat LE DTR's 1+ bilat patellar/2+ achilles Skin: General: Skin is warm and dry. Capillary Refill: Capillary refill takes 2 to 3 seconds. Findings: No rash. Neurological: General: No focal deficit present. Mental Status: She is alert and oriented to person, place, and time. Psychiatric: Mood and Affect: Mood normal. Behavior: Behavior normal. Thought Content: Thought content normal. Judgment: Judgment normal. ASSESSMENT AND PLAN: Follow up in about 3 months (around 10/29/2024) for Recheck. Problem List Items Addressed This Visit Hypothyroidism ([facility]) Current meds: levothyroxine and cytomel Relevant Orders Lipid panel TSH T4, free Migraine with aura ([facility]/HCC) Uses imitrex injectable prn migraine KAUR Morbid obesity ([facility]) Discussed with patient their BMI (actual, verses recommended). We have also discussed lifestyle modifications: attempts to perform physical activity as chronic conditions allow, also to monitor dietary intake: increasing protein/fruits/veggies and lowering carb intake (unless contraindicated). Limit sodas, juices, and sugary drinks. Is currently taking ozempic 45 pounds lost since 03/01 Relevant Orders Lipid panel Spinal stenosis COPD (chronic obstructive pulmonary disease) with emphysema ([facility]) Current meds; trelegy, and albuterol Relevant Orders CBC and differential Asthma ([facility]) Current meds: albuterol, trelegy Albuterol few times weekly Relevant Orders CBC and differential Chronic fatigue syndrome with fibromyalgia Relevant Medications pregabalin (Lyrica) 75 MG capsule Hiatal hernia with GERD and esophagitis Recommendations: freq small meals, nothing to eat or drink at least 2 hours prior to bed, limit caffeine, alcohol, as well as spicy foods Meds to limit or avoid if possible: NSAIDS Elevate HOB if possible Current meds: pantoprazole Neuropathy Is on lyrica on at bedtime OARRS reviewed I would recommend trying to increase the lyrica to 75mg BID for more effective coverage Med agreement signed: 08/01/24 Recommend pt try to get this trough good Rx, card given Relevant Medications pregabalin (Lyrica) 75 MG capsule Post herpetic neuralgia ([facility]) Lyrica OARRS reviewed Relevant Medications pregabalin (Lyrica) 75 MG capsule Depression ([facility]) PHQ 9 score= 15 Anxiety DWAIN 7 = 3 Chronic kidney disease, stage 3a (HCC) ([facility]) Based on lab findings Relevant Orders Comprehensive metabolic panel Obstructive sleep apnea - Primary You have a diagnosis of obstructive sleep apnea. It is recommended that you wear your PAP device any time while in bed sleeping. Not using the PAP device can increase your risk of elevated/uncontrolled high blood pressure, atrial fibrillation, heart attack, stroke, or sudden . Has not had titration study, wants to hold on titration study d/t cost Relevant Orders CBC and differential Cigarette nicotine dependence without complication The patient has been advised of the risks of continued smoking: stroke, DC, all forms of cancer, lung disease, and . Options for quitting smoking include: cold turkey, hypnosis, acupuncture, nicotine replacement meds (gum, lozenges, and patches), Buproprion, and Varenicline. At this time pt is encouraged to evaluate their goals for wanting to quit smoking, and reach out to provider when ready to start this process Relevant Orders Urinalysis with reflex microscopic (clean catch) Associated Problem(s): Neuropathy Is on lyrica on at bedtime OARRS reviewed I would recommend trying to increase the lyrica to 75mg BID for more effective coverage Med agreement signed: 08/01/24 Recommend pt try to get this trough good Rx, card given Associated Problem(s): Cigarette nicotine dependence without complication The patient has been advised of the risks of continued smoking: stroke, DC, all forms of cancer, lung disease, and . Options for quitting smoking include: cold turkey, hypnosis, acupuncture, nicotine replacement meds (gum, lozenges, and patches), Buproprion, and Varenicline. At this time pt is encouraged to evaluate their goals for wanting to quit smoking, and reach out to provider when ready to start this process Associated Problem(s): Migraine with aura (CMS/HCC) Has been prescribed imitrex injectable, however cannot afford this Associated Problem(s): Depression (CMS/HCC) PHQ 9 score= 15 Associated Problem(s): Anxiety DWAIN 7 = 3 Associated Problem(s): Morbid obesity (CMS/HCC) Discussed with patient their BMI (actual, verses recommended). We have also discussed lifestyle modifications: attempts to perform physical activity as chronic conditions allow, also to monitor dietary intake: increasing protein/fruits/veggies and lowering carb intake (unless contraindicated). Limit sodas, juices, and sugary drinks. Is currently taking ozempic 45 pounds lost since 03/01 Associated Problem(s): Hypothyroidism (CMS/HCC) Current meds: levothyroxine and cytomel Recheck labs Associated Problem(s): Chronic kidney disease, stage 3a (HCC) ([facility]) Based on lab findings Associated Problem(s): Hiatal hernia with GERD and esophagitis Recommendations: freq small meals, nothing to eat or drink at least 2 hours prior to bed, limit caffeine, alcohol, as well as spicy foods Meds to limit or avoid if possible: NSAIDS Elevate HOB if possible Current meds: pantoprazole Associated Problem(s): COPD (chronic obstructive pulmonary disease) with emphysema ([facility]) Current meds; trelegy, and albuterol Associated Problem(s): Asthma ([facility]) Current meds: albuterol, trelegy Albuterol few times weekly Associated Problem(s): Obstructive sleep apnea You have a diagnosis of obstructive sleep apnea. It is recommended that you wear your PAP device any time while in bed sleeping. Not using the PAP device can increase your risk of elevated/uncontrolled high blood pressure, atrial fibrillation, heart attack, stroke, or sudden . Has not had titration study, wants to hold on titration study d/t cost documented in this encounter [facility] 08-01-2024 Instructions Camilla Recinos NP - 08/01/2024 2:40 PM EST Get labs checked Lets see if we can do patient assistance forms for both trelegy and pre gabalin as well documented in this encounter [facility] 03-26-2024 History of Presen t illness Narrative Associated Problem(s): Obstructive sleep apnea Had sleep study completed last week- awaiting results. Associated Problem(s): COPD (chronic obstructive pulmonary disease) with emphysema (CMS/HCC) Currently using Trelegy dauly and Albuterol PRN. Completed PFT's- indicative of COPD. Had sleep study completed last week- awaiting results. Feels symtoms are improved significantly since using Trelegy. Still current everyday smoker, reports she is down to smoking 0.5ppd. Provided pt with smoking cessation education. Associated Problem(s): Morbid obesity (CMS/HCC) Is taking Semaglutide 0.25mg, on fourth week this week. Initial weight was 340 lbs is now 332. Down 8 pounds in one month. Reports she is drinking protein shakes daily, has minimized carbohydrate intake, has given up all sweets and fats. States I'm trying so hard, I really want to get healthy. Denies any adverse effects from Semaglutide. Will increase dose to 0.5mg. Continue to monitor for efficacy and tolerance. Associated Problem(s): Degeneration of intervertebral disc of lumbosacral region Currently taking Percocet 5mg TID And Lyrica 75mg BID Referred to PM, will be scheduling to see them soon. Pt reports pain has improved moderatel since restarting Lyrica and Percocet. 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 Whereas before she could only shower at night and had to use a shower chair to assist due to the level of pain. Mercedes reports she left the house and attended a family function and a since her last OV. States this was the first time she had left the house in quite some time. She reports she is trying very hard to improve her overall quality of life. OARRS reviewed. Associated Problem(s): Hypothyroidism (CMS/HCC) TSH was still elevated on last check, at 58 increased Levothyroxine to 150mcg and initiated Cytomel 5mg. Will recheck again in 5 weeks. Associated Problem(s): Stage 3a chronic kidney disease (HCC) (CMS/HCC) On BMP from 03/21 Creatinine improved to 1.05 eGFR improved to 54 Continue to monitor. Avoid nephrotoxic agents. Pt requests to hold off on Nephrology referral at this time. Will continue to monitor closely Images from the original note were not included. Subjective Patient ID: Mrecedes Wills is a 58 y.o. female who presents for Follow-up. HPI COPD: Currently using Trelegy daily and Albuterol PRN. Completed PFT's- indicative of COPD. Had sleep study completed last week- awaiting results. Feels symptoms are improved significantly since using Trelegy. Still current everyday smoker, reports she is down to smoking 0.5ppd. Provided pt with smoking cessation education. Morbid Obesity: Is taking Semaglutide 0.25mg, on fourth week this week. Initial weight was 340 lbs is now 332. Down 8 pounds in one month. Reports she is drinking protein shakes daily, has minimized carbohydrate intake, has given up all sweets and fats. States I'm trying so hard, I really want to get healthy. Denies any adverse effects from Semaglutide. Will increase dose to 0.5mg. Continue to monitor for efficacy and tolerance. Degenerative Disc Disease: Currently taking Percocet 5mg TID And Lyrica 75mg BID Referred to PM, will be scheduling to see them soon. Pt reports pain has improved moderatel since restarting Lyrica and Percocet. 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 Whereas before she could only shower at night and had to use a shower chair to assist due to the level of pain. Mercedes reprots she left the house and attended a family function and a since her last OV. States this was the first time she had left the house in quite some time. She reports she is trying very hard to improve her overall quality of life. OARRS reviewed. Hypothyroidism: TSH was still elevated on last check, at 58 increased Levothyroxine to 150mcg and initiated Cytomel 5mg. Will recheck again in 5 weeks. CKD: On BMP from 03/21 Creatinine improved to 1.05 eGFR improved to 54 Continue to monitor. Avoid nephrotoxic agents. Pt requests to hold off on Nephrology referral at this time. Will continue to monitor closely Review of Systems Constitutional: Negative for activity change, appetite change, chills, fatigue, fever, night sweats and unexpected weight change. HENT: Negative for congestion, ear pain, rhinorrhea, sinus pressure, sinus pain, sore throat, trouble swallowing and voice change. Eyes: Negative for discharge and visual disturbance. Respiratory: Negative for chest tightness, shortness of breath and wheezing. Cardiovascular: Negative for chest pain, palpitations and leg swelling. Gastrointestinal: Negative for abdominal distention, abdominal pain, blood in stool, constipation, diarrhea, nausea and vomiting. Genitourinary: Negative for difficulty urinating, dysuria, flank pain, hematuria and pelvic pain. Musculoskeletal: Positive for arthralgias, back pain, gait problem and myalgias. Negative for joint swelling and neck pain. Skin: Negative for rash and wound. Neurological: Negative for dizziness, tremors, syncope, weakness, light-headedness, numbness and headaches. Psychiatric/Behavioral: Negative for sleep disturbance and suicidal ideas. The patient is not nervous/anxious. Hematological: Does not bruise/bleed easily. Endocrine: Negative for cold intolerance, heat intolerance, polydipsia, polyphagia and polyuria. Objective Physical Exam Constitutional: Appearance: Normal appearance. She is obese. HENT: Head: Normocephalic. Right Ear: External ear normal. Left Ear: External ear normal. Nose: Nose normal. Mouth/Throat: Mouth: Mucous membranes are moist. Pharynx: Oropharynx is clear. Eyes: Pupils: Pupils are equal, round, and reactive to light. Cardiovascular: Rate and Rhythm: Normal rate and regular rhythm. Pulses: Normal pulses. Pulmonary: Effort: Pulmonary effort is normal. Breath sounds: Normal breath sounds. Abdominal: General: Abdomen is flat. Bowel sounds are normal. Palpations: Abdomen is soft. Musculoskeletal: General: Normal range of motion. Cervical back: Normal range of motion. Skin: General: Skin is warm. Capillary Refill: Capillary refill takes less than 2 seconds. Neurological: Mental Status: She is alert and oriented to person, place, and time. Psychiatric: Mood and Affect: Mood normal. Behavior: Behavior normal. Assessment/Plan Problem List Items Addressed This Visit Degeneration of intervertebral disc of lumbosacral region - Primary Currently taking Percocet 5mg TID And Lyrica 75mg BID Referred to PM, will be scheduling to see them soon. Pt reports pain has improved moderatel since restarting Lyrica and Percocet. 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 Whereas before she could only shower at night and had to use a shower chair to assist due to the level of pain. Mercedes reports she left the house and attended a family function and a since her last OV. States this was the first time she had left the house in quite some time. She reports she is trying very hard to improve her overall quality of life. OARRS reviewed. Hypothyroidism (CMS/HCC) TSH was still elevated on last check, at 58 increased Levothyroxine to 150mcg and initiated Cytomel 5mg. Will recheck again in 5 weeks. Relevant Orders TSH W/REFLEX TO FT4 Morbid obesity (CMS/HCC) Is taking Semaglutide 0.25mg, on fourth week this week. Initial weight was 340 lbs is now 332. Down 8 pounds in one month. Reports she is drinking protein shakes daily, has minimized carbohydrate intake, has given up all sweets and fats. States I'm trying so hard, I really want to get healthy. Denies any adverse effects from Semaglutide. Will increase dose to 0.5mg. Continue to monitor for efficacy and tolerance. Relevant Medications semaglutide (Ozempic) 2 MG/1.5ML solution pen-injector COPD (chronic obstructive pulmonary disease) with emphysema ([facility]/HCC) Currently using Trelegy dauly and Albuterol PRN. Completed PFT's- indicative of COPD. Had sleep study completed last week- awaiting results. Feels symtoms are improved significantly since using Trelegy. Still current everyday smoker, reports she is down to smoking 0.5ppd. Provided pt with smoking cessation education. Relevant Medications Epmppialqqx-Jekbaorlm-Lztwxl (Trelegy Ellipta) 100-62.5-25 MCG/ACT aerosol powder Hiatal hernia with GERD and esophagitis Relevant Medications pantoprazole (Protonix) 40 MG EC tablet Stage 3a chronic kidney disease (HCC) (CMS/HCC) On BMP from 03/21 Creatinine improved to 1.05 eGFR improved to 54 Continue to monitor. Avoid nephrotoxic agents. Pt requests to hold off on Nephrology referral at this time. Will continue to monitor closely Relevant Orders Basic metabolic panel Obstructive sleep apnea Had sleep study completed last week- awaiting results. documented in this encounter [facility] 03-26-2024 Instructions Olimpia Yu NP - 03/26/2024 6:15 PM EDT Have lab work completed in 5 weeks. Keep up the good work! Call if you need anything! 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 Tried gabapentin for neuropathy, did not tolerate. Was taking Lyrica for Neuropathy with Dr. Mendoza. Reinitiated Lyrica. OARRS reviewed. Associated Problem(s): Abnormal wellness exam I have reviewed Ht/Wt/BMI, I have reviewed recommended vaccines for patient's age, as well as all recommended screenings I have reviewed available care everywhere notes as well. I have recommended eating a balanced diet, as well as activity as chronic conditions allow It is recommended that the patient have a yearly eye exam, as well as twice a year dental exams Fu in this office for wellness on a yearly basis Ordered wellness labs prior to in home visit. Results were discussed results with patient. Diet: Eat three meals per day. Breakfast, lunch, and dinner. Avoid snacking. Avoid eating after 5/6 pm. Daily protein GOAL 35% of your intake; 30g per meal. Daily calorie GOAL 1,800-2,000 per day. Consider tracking your food intake on MyFtinessPal or LoseIt Water: Increase water intake; GOAL 64-80oz of water per day. Exercise: Increase activity. GOAL 30 minutes, 5 days per week. START SLOW. Start with 5 minutes, 5 days per week. Then increase to 10 days, 5 days per week. Continue to increase until you reach the goal. Increase steps; GOAL 10,000 steps per day. Be sure to get adequate sleep; GOAL 6-8 hours of sleep per night. Associated Problem(s): Chronic fatigue syndrome with fibromyalgia Ongoing condition for 20 years. In combination with ongoing post herpetic neuralgia. Was previously taking Lyrica was past provider Dr. Mendoza. Tried Gabapentin in past, did not tolerate due to side effects. Will reinitiate Lyrica. OARRS reviewed. Closely monitor. Associated Problem(s): Morbid obesity (CMS/HCC) Discussed with patient their BMI (actual, verses recommended). We have also discussed lifestyle modifications: attempts to perform physical activity as chronic conditions allow, also to monitor dietary intake: increasing protein/fruits/veggies and lowering carb intake (unless contraindicated). Limit sodas, juices, and sugary drinks. Also discussed oral medications that can be utilized for weight loss, as well as surgical options for weight loss. JENNY may be contributing factor as well. Pt interested in Wegovy via compounding pharmacy in [facility] for weight loss. Will send in RX for one month and reassess. Associated Problem(s): Hypothyroidism ([facility]) Michael's thyroiditis. Was off of Levothyroxine for 4-6 months. TSH 94 in January; Initiated Levothyroxine 50mcg. Recheck ordered in 6 weeks. Will reassess dosing with next lab work. Associated Problem(s): Degeneration of intervertebral disc of lumbosacral region Chronic ongoing. Several MRI's in past @ [facility]- Will request records. Was following Pain Management in [place], [place]; Was prescribed Oxycodone 7.5mg Q8hrs at that time. Did not tolerate spinal injections. Reports she had a bad reaction following last injection and became very ill and Was hospitalized. Stopped going in 2021 due to distance in car and significant related knee pain. (Pt reports daughter in July of 2021; Pt states after her daughters she became very depressed and was reluctant to leave home often) Stopped receiving all PM medications after she stopped commuting for in office visits. States pain is often times unbearable, causing her to sit in chair all day. States she is only able to ambulate to bathroom and back to her chair. Can stand only for 5 minute intervals before requiring rest and sitting. Will fill oxycodone 5mg Q8hrs PRN at this time and Referral sent to PM; OARRS reviewed. Associated Problem(s): Hiatal hernia with GERD and esophagitis Had hernia repair several years ago; recurrent. IS not interested in surgical treatment at this time. Discussed in detail concerning symptoms to monitor for. Associated Problem(s): COPD (chronic obstructive pulmonary disease) with emphysema (CMS/HCC) Current smoker. Was 1 ppd X20+ years. Has decreased to 0.5ppd for past month. Order for PFT's placed. Startted on Trelegy daily and Albuterol PRN pending PFT's. Associated Problem(s): Obstructive sleep apnea Longstanding history of JENNY; Does not wear CPAP. Current smoker. Was 1 ppd X20+ years. Has decreased to 0.5ppd for past month. Referral for sleep study and PFT's placed. Images from the original note were not included. Subjective Patient ID: Mercedes Wills is a 58 y.o. female who presents for Establish Care. HPI In home visit; Pt lives at home with son, daughter in law and 3 grandchildren. in 2018; Daughter in 2021. Was pt of Dr. Mendoza. Has not been seen in office in over 5 years. Was doing telehealth visits. Pt requires help of son and Daughter in law with ADL's. Ran out of all medications in September 2023- and has not had maintenance medications since. Ordered wellness labs prior to in home visit. Results were discussed results with patient. Pt states after of and daughter she became very depressed and was reluctant to leave house. Has history of chronic Pain r/t lumbar sacral stenosis, osteoarthritis of knees; Has had MRI's and Xray's done in past. Will request records. Was following Pain Management in [place], [place]; Was prescribed Oxycodone 7.5mg Q8hrs at that time. Did not tolerate spinal injections. Reports she had a bad reaction following last injection and became very ill and Was hospitalized. Stopped going in 2021 due to distance in car and significant related knee pain. Stopped receiving all PM medications after she stopped commuting for in office visits. States pain is often times unbearable, causing her to sit in chair all day. States she is only able to ambulate to bathroom and back to her chair. Can stand only for 5 minute intervals before requiring rest and sitting. Has longstanding hx of morbid obesity. Is interested in weight loss medications. But does not want stimulant. Hx of narcolepsy and ADD. Was being treated with Adderall 30mg BID- states she felt very short of breath following taking medication so stopped. Is concerned she may have pulmonary hypertension. Has JENNY- untreated. Does not wear CPAP. 20+ year smoker 1-2ppd. Hx of COPD- currently on no inhaler. Has had shingles outbreaks multiple times, states in 2009 had shingles 5+ times in one year and was placed on disability due to fci effects. Tried gabapentin for neuropathy, did not tolerate. Was taking Lyrica for Neuropathy with Dr. Mendoza. Review of Systems Constitutional: Negative for activity change, appetite change, chills, diaphoresis, fatigue, fever and unexpected weight change. HENT: Negative for congestion, ear pain, rhinorrhea, sinus pressure, sinus pain, sneezing, sore throat, trouble swallowing and voice change. Eyes: Negative for visual disturbance. Respiratory: Positive for cough and shortness of breath. Negative for chest tightness and wheezing. Cardiovascular: Negative for chest pain, palpitations and leg swelling. Gastrointestinal: Positive for constipation and diarrhea. Negative for abdominal distention, abdominal pain, blood in stool and vomiting. Genitourinary: Positive for urgency. Negative for decreased urine volume, dysuria, flank pain, frequency and hematuria. Musculoskeletal: Positive for arthralgias, back pain, gait problem and myalgias. Negative for joint swelling. Skin: Negative for rash. Neurological: Negative for dizziness, tremors, syncope, weakness, light-headedness and headaches. Psychiatric/Behavioral: Negative for decreased concentration and suicidal ideas. The patient is not nervous/anxious. Hematological: Does not bruise/bleed easily. Endocrine: Positive for polyuria. Negative for cold intolerance, heat intolerance, polydipsia and polyphagia. Objective Physical Exam Vitals reviewed. Constitutional: Appearance: Normal appearance. She is obese. HENT: Head: Normocephalic and atraumatic. Right Ear: Tympanic membrane normal. Left Ear: Tympanic membrane normal. Nose: Nose normal. Mouth/Throat: Mouth: Mucous membranes are moist. Pharynx: Oropharynx is clear. Eyes: Pupils: Pupils are equal, round, and reactive to light. Cardiovascular: Rate and Rhythm: Normal rate and regular rhythm. Pulses: Normal pulses. Heart sounds: Normal heart sounds. Pulmonary: Effort: Pulmonary effort is normal. Breath sounds: Normal breath sounds. Abdominal: General: Abdomen is flat. Bowel sounds are normal. Palpations: Abdomen is soft. Hernia: A hernia is present. Musculoskeletal: General: Normal range of motion. Cervical back: Normal range of motion. Skin: General: Skin is warm and dry. Capillary Refill: Capillary refill takes less than 2 seconds. Neurological: General: No focal deficit present. Mental Status: She is alert and oriented to person, place, and time. Psychiatric: Mood and Affect: Mood normal. Behavior: Behavior normal. Assessment/Plan Problem List Items Addressed This Visit Degeneration of intervertebral disc of lumbosacral region Chronic ongoing. Several MRI's in past @ [facility]- Will request records. Was following Pain Management in [place], [place]; Was prescribed Oxycodone 7.5mg Q8hrs at that time. Did not tolerate spinal injections. Reports she had a bad reaction following last injection and became very ill and Was hospitalized. Stopped going in 2021 due to distance in car and significant related knee pain. (Pt reports daughter in July of 2021; Pt states after her daughters she became very depressed and was reluctant to leave home often) Stopped receiving all PM medications after she stopped commuting for in office visits. States pain is often times unbearable, causing her to sit in chair all day. States she is only able to ambulate to bathroom and back to her chair. Can stand only for 5 minute intervals before requiring rest and sitting. Will fill oxycodone 5mg Q8hrs PRN at this time and Referral sent to PM; OARRS reviewed. 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 Was off of Levothyroxine for 4-6 months. TSH 94 in January; Initiated Levothyroxine 50mcg. Recheck ordered in 6 weeks. Will reassess dosing with next lab work. Morbid obesity (CMS/HCC) Discussed with patient their BMI (actual, verses recommended). We have also discussed lifestyle modifications: attempts to perform physical activity as chronic conditions allow, also to monitor dietary intake: increasing protein/fruits/veggies and lowering carb intake (unless contraindicated). Limit sodas, juices, and sugary drinks. Also discussed oral medications that can be utilized for weight loss, as well as surgical options for weight loss. JENNY may be contributing factor as well. Pt interested in Wegovy via compounding pharmacy in [facility] for weight loss. Will send in RX for one month and reassess. Osteoarthritis Relevant Medications oxyCODONE-acetaminophen (Percocet) 5-325 MG tablet Other Relevant Orders Ambulatory referral to Pain Medicine Spinal stenosis Relevant Medications oxyCODONE-acetaminophen (Percocet) 5-325 MG tablet Other Relevant Orders Ambulatory referral to Pain Medicine COPD (chronic obstructive pulmonary disease) with emphysema ([facility]) Current smoker. Was 1 ppd X20+ years. Has decreased to 0.5ppd for past month. Order for PFT's placed. Startted on Trelegy daily and Albuterol PRN pending PFT's. Relevant Medications albuterol HFA 90 mcg/act inhaler Ltdsaprzgyx-Zzsjjwqfj-Ljbhrr (Trelegy Ellipta) 100-62.5-25 MCG/ACT aerosol powder Other Relevant Orders Pulmonary Function Test Chronic fatigue syndrome with fibromyalgia Ongoing condition for 20 years. In combination with ongoing post herpetic neuralgia. Was previously taking Lyrica was past provider Dr. Mendoza. Tried Gabapentin in past, did not tolerate due to side effects. Will reinitiate Lyrica. OARRS reviewed. Closely monitor. Relevant Medications pregabalin (Lyrica) 75 MG capsule Hiatal hernia with GERD and esophagitis Had hernia repair several years ago; recurrent. IS not interested in surgical treatment at this time. Discussed in detail concerning symptoms to monitor for. Relevant Medications pantoprazole (Protonix) 40 MG EC tablet sucralfate (Carafate) 1 g tablet Neuropathy - Primary Relevant Medications pregabalin (Lyrica) 75 MG capsule Post herpetic neuralgia (CMS/HCC) Has had shingles outbreaks multiple times, states in 2010 had shingles 5+ times in one year and was placed on disability due to fci effects. Tried gabapentin for neuropathy, did not tolerate. Was taking Lyrica for Neuropathy with Dr. Mendoza. Reinitiated Lyrica. OARRS reviewed. Relevant Medications pregabalin (Lyrica) 75 MG capsule Stage 3a chronic kidney disease (HCC) (CMS/HCC) New onset; Discovered with ab work; Has never seen Nephro in past; Will recheck labs in 2 weeks and determine if nephro referral is warranted. Monitor closely, avoid nephrotoxic agents. Relevant Orders Echocardiogram 2D complete Basic metabolic panel Microalbumin / creatinine urine ratio Obstructive sleep apnea Longstanding history of JENNY; Does not wear CPAP. Current smoker. Was 1 ppd X20+ years. Has decreased to 0.5ppd for past month. Referral for sleep study and PFT's placed. Relevant Orders Echocardiogram 2D complete Pulmonary Function Test Abnormal wellness exam I have reviewed Ht/Wt/BMI, I have reviewed recommended vaccines for patient's age, as well as all recommended screenings I have reviewed available care everywhere notes as well. I have recommended eating a balanced diet, as well as activity as chronic conditions allow It is recommended that the patient have a yearly eye exam, as well as twice a year dental exams Fu in this office for wellness on a yearly basis Ordered wellness labs prior to in home visit. Results were discussed results with patient. Diet: Eat three meals per day. Breakfast, lunch, and dinner. Avoid snacking. Avoid eating after 5/6 pm. Daily protein GOAL 35% of your intake; 30g per meal. Daily calorie GOAL 1,800-2,000 per day. Consider tracking your food intake on MyFtinessPal or LoseIt Water: Increase water intake; GOAL 64-80oz of water per day. Exercise: Increase activity. GOAL 30 minutes, 5 days per week. START SLOW. Start with 5 minutes, 5 days per week. Then increase to 10 days, 5 days per week. Continue to increase until you reach the goal. Increase steps; GOAL 10,000 steps per day. Be sure to get adequate sleep; GOAL 6-8 hours of sleep per night. Screening for colon cancer Relevant Orders Cologuard colon cancer screening Associated Problem(s): Stage 3a chronic kidney disease (HCC) (CMS/HCC) New onset; Discovered with ab work; Has never seen Nephro in past; Will recheck labs in 2 weeks and determine if nephro referral is warranted. Monitor closely, avoid nephrotoxic agents. documented in this encounter [facility] 02-25-2024 Instructions Olimpia Yu NP - 02/25/2024 3:30 PM EDT Referrals sent to Nephrology and Pain Management; They will call you! PFT's ordered. Echocardiogram ordered. Will recheck TSH on 03/25/2024 Take ALL medications as directed!! Call if you need anything! documented in this encounter [facility] Evaluation note Diagnosis Degeneration of intervertebral disc of lumbosacral region Primary osteoarthritis involving multiple joints Spinal stenosis of thoracolumbar region documented in this encounter 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) Degeneration of intervertebral disc of lumbosacral region Primary osteoarthritis involving multiple joints Morbid obesity (CMS/HCC) Morbid obesity Chronic fatigue syndrome with fibromyalgia Spinal stenosis of thoracolumbar region Post herpetic neuralgia (CMS/HCC) Herpes zoster with other nervous system complications Stage 3a chronic kidney disease (HCC) (CMS/HCC) Obstructive sleep apnea Obstructive sleep apnea (adult) (pediatric) Pulmonary emphysema, unspecified emphysema type (CMS/HCC) Abnormal wellness exam Screening for colon cancer Special screening for malignant neoplasms, colon Degeneration of intervertebral disc of lumbosacral region with discogenic back pain and lower extremity pain- Primary Obstructive sleep apnea Obstructive sleep apnea (adult) (pediatric) Pulmonary emphysema, unspecified emphysema type (CMS/HCC) Morbid obesity (CMS/HCC) Morbid obesity 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) Hiatal hernia with GERD and esophagitis Stage 3a chronic kidney disease (HCC) (CMS/HCC) documented in this encounter [facility] HealthcareEvaluation note* Diagnosis Neuropathy- Primary Mononeuritis of unspecified site Hiatal hernia with GERD and esophagitis 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) Degeneration of intervertebral disc of lumbosacral region Primary osteoarthritis involving multiple joints Morbid obesity (CMS/HCC) Morbid obesity Chronic fatigue syndrome with fibromyalgia Spinal stenosis of thoracolumbar region Post herpetic neuralgia (CMS/HCC) Herpes zoster with other nervous system complications Stage 3a chronic kidney disease (HCC) (CMS/HCC) Obstructive sleep apnea Obstructive sleep apnea (adult) (pediatric) Pulmonary emphysema, unspecified emphysema type (CMS/HCC) Abnormal wellness exam Screening for colon cancer Special screening for malignant neoplasms, colon Degeneration of intervertebral disc of lumbosacral region with discogenic back pain and lower extremity pain- Primary Obstructive sleep apnea Obstructive sleep apnea (adult) (pediatric) Pulmonary emphysema, unspecified emphysema type (CMS/HCC) Morbid obesity (CMS/HCC) Morbid obesity 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) Hiatal hernia with GERD and esophagitis Stage 3a chronic kidney disease (HCC) (CMS/HCC) Degeneration of intervertebral disc of lumbosacral region Primary osteoarthritis involving multiple joints Spinal stenosis of thoracolumbar region documented in this encounter [facility]* Diagnosis Neuropathy- Primary Mononeuritis of unspecified site Hiatal hernia with GERD and esophagitis 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) Degeneration of intervertebral disc of lumbosacral region Primary osteoarthritis involving multiple joints Morbid obesity (CMS/HCC) Morbid obesity Chronic fatigue syndrome with fibromyalgia Spinal stenosis of thoracolumbar region Post herpetic neuralgia (CMS/HCC) Herpes zoster with other nervous system complications Stage 3a chronic kidney disease (HCC) (CMS/HCC) Obstructive sleep apnea Obstructive sleep apnea (adult) (pediatric) Pulmonary emphysema, unspecified emphysema type (CMS/HCC) Abnormal wellness exam Screening for colon cancer Special screening for malignant neoplasms, colon Degeneration of intervertebral disc of lumbosacral region with discogenic back pain and lower extremity pain- Primary Obstructive sleep apnea Obstructive sleep apnea (adult) (pediatric) Pulmonary emphysema, unspecified emphysema type (CMS/HCC) Morbid obesity (CMS/HCC) Morbid obesity 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) Hiatal hernia with GERD and esophagitis Stage 3a chronic kidney disease (HCC) (CMS/HCC) Neuropathy Mononeuritis of unspecified site Chronic fatigue syndrome with fibromyalgia Post herpetic neuralgia (CMS/HCC) Herpes zoster with other nervous system complications 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) Morbid obesity (CMS/HCC) Morbid obesity Hiatal hernia with GERD and esophagitis Degeneration of intervertebral disc of lumbosacral region Primary osteoarthritis involving multiple joints Spinal stenosis of thoracolumbar region documented in this encounter [facility]* Diagnosis Neuropathy- Primary Mononeuritis of unspecified site Hiatal hernia with GERD and esophagitis 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) Degeneration of intervertebral disc of lumbosacral region Primary osteoarthritis involving multiple joints Morbid obesity (CMS/HCC) Morbid obesity Chronic fatigue syndrome with fibromyalgia Spinal stenosis of thoracolumbar region Post herpetic neuralgia (CMS/HCC) Herpes zoster with other nervous system complications Stage 3a chronic kidney disease (HCC) (CMS/HCC) Obstructive sleep apnea Obstructive sleep apnea (adult) (pediatric) Pulmonary emphysema, unspecified emphysema type (CMS/HCC) Abnormal wellness exam Screening for colon cancer Special screening for malignant neoplasms, colon Degeneration of intervertebral disc of lumbosacral region with discogenic back pain and lower extremity pain- Primary Obstructive sleep apnea Obstructive sleep apnea (adult) (pediatric) Pulmonary emphysema, unspecified emphysema type (CMS/HCC) Morbid obesity (CMS/HCC) Morbid obesity 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) Hiatal hernia with GERD and esophagitis Stage 3a chronic kidney disease (HCC) (CMS/HCC) Morbid obesity (CMS/HCC)- Primary Morbid obesity documented in this encounter [facility]* Diagnosis 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 Chronic fatigue syndrome with fibromyalgia DLE (discoid lupus erythematosus) (CMS/HCC) Lupus erythematosus Morbid obesity (CMS/HCC) Morbid obesity Osteopenia after menopause Family history of bleeding or clotting disorder documented in this encounter [facility]* Diagnosis Neuropathy- Primary Mononeuritis of unspecified site Hiatal hernia with GERD and esophagitis 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) Degeneration of intervertebral disc of lumbosacral region Primary osteoarthritis involving multiple joints Morbid obesity (CMS/HCC) Morbid obesity Chronic fatigue syndrome with fibromyalgia Spinal stenosis of thoracolumbar region Post herpetic neuralgia (CMS/HCC) Herpes zoster with other nervous system complications Stage 3a chronic kidney disease (HCC) (CMS/HCC) Obstructive sleep apnea Obstructive sleep apnea (adult) (pediatric) Pulmonary emphysema, unspecified emphysema type (CMS/HCC) Abnormal wellness exam Screening for colon cancer Special screening for malignant neoplasms, colon documented in this encounter [facility]* Diagnosis Hiatal hernia with GERD and esophagitis documented in this encounter [facility]* Diagnosis Neuropathy- Primary Mononeuritis of unspecified site Hiatal hernia with GERD and esophagitis 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) Degeneration of intervertebral disc of lumbosacral region Primary osteoarthritis involving multiple joints Morbid obesity (CMS/HCC) Morbid obesity Chronic fatigue syndrome with fibromyalgia Spinal stenosis of thoracolumbar region Post herpetic neuralgia (CMS/HCC) Herpes zoster with other nervous system complications Stage 3a chronic kidney disease (HCC) (CMS/HCC) Obstructive sleep apnea Obstructive sleep apnea (adult) (pediatric) Pulmonary emphysema, unspecified emphysema type (CMS/HCC) Abnormal wellness exam Screening for colon cancer Special screening for malignant neoplasms, colon Degeneration of intervertebral disc of lumbosacral region with discogenic back pain and lower extremity pain- Primary Obstructive sleep apnea Obstructive sleep apnea (adult) (pediatric) Pulmonary emphysema, unspecified emphysema type (CMS/HCC) Morbid obesity (CMS/HCC) Morbid obesity 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) Hiatal hernia with GERD and esophagitis Stage 3a chronic kidney disease (HCC) (CMS/HCC) Degeneration of intervertebral disc of lumbosacral region Primary osteoarthritis involving multiple joints Spinal stenosis of thoracolumbar region documented in this encounter [facility]* Diagnosis Neuropathy- Primary Mononeuritis of unspecified site Hiatal hernia with GERD and esophagitis 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) Degeneration of intervertebral disc of lumbosacral region Primary osteoarthritis involving multiple joints Morbid obesity (CMS/HCC) Morbid obesity Chronic fatigue syndrome with fibromyalgia Spinal stenosis of thoracolumbar region Post herpetic neuralgia (CMS/HCC) Herpes zoster with other nervous system complications Stage 3a chronic kidney disease (HCC) (CMS/HCC) Obstructive sleep apnea Obstructive sleep apnea (adult) (pediatric) Pulmonary emphysema, unspecified emphysema type (CMS/HCC) Abnormal wellness exam Screening for colon cancer Special screening for malignant neoplasms, colon Degeneration of intervertebral disc of lumbosacral region with discogenic back pain and lower extremity pain- Primary Obstructive sleep apnea Obstructive sleep apnea (adult) (pediatric) Pulmonary emphysema, unspecified emphysema type (CMS/HCC) Morbid obesity (CMS/HCC) Morbid obesity 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) Hiatal hernia with GERD and esophagitis Stage 3a chronic kidney disease (HCC) (CMS/HCC) Morbid obesity (CMS/HCC) Morbid obesity documented in this encounter [facility]* Diagnosis Neuropathy- Primary Mononeuritis of unspecified site Hiatal hernia with GERD and esophagitis 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) Degeneration of intervertebral disc of lumbosacral region Primary osteoarthritis involving multiple joints Morbid obesity (CMS/HCC) Morbid obesity Chronic fatigue syndrome with fibromyalgia Spinal stenosis of thoracolumbar region Post herpetic neuralgia (CMS/HCC) Herpes zoster with other nervous system complications Stage 3a chronic kidney disease (HCC) (CMS/HCC) Obstructive sleep apnea Obstructive sleep apnea (adult) (pediatric) Pulmonary emphysema, unspecified emphysema type (CMS/HCC) Abnormal wellness exam Screening for colon cancer Special screening for malignant neoplasms, colon Degeneration of intervertebral disc of lumbosacral region with discogenic back pain and lower extremity pain- Primary Obstructive sleep apnea Obstructive sleep apnea (adult) (pediatric) Pulmonary emphysema, unspecified emphysema type (CMS/HCC) Morbid obesity (CMS/HCC) Morbid obesity 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) Hiatal hernia with GERD and esophagitis Stage 3a chronic kidney disease (HCC) (CMS/HCC) Pulmonary emphysema, unspecified emphysema type (CMS/HCC) documented in this encounter [facility]* Diagnosis Neuropathy- Primary Mononeuritis of unspecified site Hiatal hernia with GERD and esophagitis 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) Degeneration of intervertebral disc of lumbosacral region Primary osteoarthritis involving multiple joints Morbid obesity (CMS/HCC) Morbid obesity Chronic fatigue syndrome with fibromyalgia Spinal stenosis of thoracolumbar region Post herpetic neuralgia (CMS/HCC) Herpes zoster with other nervous system complications Stage 3a chronic kidney disease (HCC) (CMS/HCC) Obstructive sleep apnea Obstructive sleep apnea (adult) (pediatric) Pulmonary emphysema, unspecified emphysema type (CMS/HCC) Abnormal wellness exam Screening for colon cancer Special screening for malignant neoplasms, colon Degeneration of intervertebral disc of lumbosacral region with discogenic back pain and lower extremity pain- Primary Obstructive sleep apnea Obstructive sleep apnea (adult) (pediatric) Pulmonary emphysema, unspecified emphysema type (CMS/HCC) Morbid obesity (CMS/HCC) Morbid obesity 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) Hiatal hernia with GERD and esophagitis Stage 3a chronic kidney disease (HCC) (CMS/HCC) Hypothyroidism, unspecified type (CMS/HCC)- Primary Chronic kidney disease, stage 3a (HCC) (CMS/HCC) Obstructive sleep apnea Obstructive sleep apnea (adult) (pediatric) Spinal stenosis of thoracolumbar region Asthma, unspecified asthma severity, unspecified whether complicated, unspecified whether persistent ([facility]) Pulmonary emphysema, unspecified emphysema type ([facility]) Hiatal hernia with GERD and esophagitis Morbid obesity ([facility]/HCC) Morbid obesity Anxiety Anxiety state, unspecified Depression, unspecified depression type ([facility]) Migraine with aura and without status migrainosus, not intractable ([facility]) Cigarette nicotine dependence without complication Neuropathy Mononeuritis of unspecified site Chronic fatigue syndrome with fibromyalgia Post herpetic neuralgia ([facility]/HCC) Herpes zoster with other nervous system complications documented in this encounter [facility]* Diagnosis Neuropathy- Primary Mononeuritis of unspecified site Hiatal hernia with GERD and esophagitis 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 ([facility]/HCC) Degeneration of intervertebral disc of lumbosacral region Primary osteoarthritis involving multiple joints Morbid obesity ([facility]/HCC) Morbid obesity Chronic fatigue syndrome with fibromyalgia Spinal stenosis of thoracolumbar region Post herpetic neuralgia ([facility]/HCC) Herpes zoster with other nervous system complications Stage 3a chronic kidney disease (HCC) ([facility]/HCC) Obstructive sleep apnea Obstructive sleep apnea (adult) (pediatric) Pulmonary emphysema, unspecified emphysema type (CMS/HCC) Abnormal wellness exam Screening for colon cancer Special screening for malignant neoplasms, colon Degeneration of intervertebral disc of lumbosacral region with discogenic back pain and lower extremity pain- Primary Obstructive sleep apnea Obstructive sleep apnea (adult) (pediatric) Pulmonary emphysema, unspecified emphysema type (CMS/HCC) Morbid obesity (CMS/HCC) Morbid obesity 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) Hiatal hernia with GERD and esophagitis Stage 3a chronic kidney disease (HCC) (CMS/HCC) Hypothyroidism, unspecified type (CMS/HCC)- Primary Chronic kidney disease, stage 3a (HCC) (CMS/HCC) Obstructive sleep apnea Obstructive sleep apnea (adult) (pediatric) Spinal stenosis of thoracolumbar region Asthma, unspecified asthma severity, unspecified whether complicated, unspecified whether persistent (CMS/HCC) Pulmonary emphysema, unspecified emphysema type (CMS/HCC) Hiatal hernia with GERD and esophagitis Morbid obesity (CMS/HCC) Morbid obesity Anxiety Anxiety state, unspecified Depression, unspecified depression type (CMS/HCC) Migraine with aura and without status migrainosus, not intractable (CMS/[facility]) Cigarette nicotine dependence without complication Neuropathy Mononeuritis of unspecified site Chronic fatigue syndrome with fibromyalgia Post herpetic neuralgia (CMS/HCC) Herpes zoster with other nervous system complications Degeneration of intervertebral disc of lumbosacral region Primary osteoarthritis involving multiple joints Spinal stenosis of thoracolumbar region documented in this encounter [facility]* Diagnosis Neuropathy- Primary Mononeuritis of unspecified site Hiatal hernia with GERD and esophagitis 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 ([facility]/HCC) Degeneration of intervertebral disc of lumbosacral region Primary osteoarthritis involving multiple joints Morbid obesity ([facility]/HCC) Morbid obesity Chronic fatigue syndrome with fibromyalgia Spinal stenosis of thoracolumbar region Post herpetic neuralgia ([facility]/HCC) Herpes zoster with other nervous system complications Stage 3a chronic kidney disease (HCC) ([facility]/HCC) Obstructive sleep apnea Obstructive sleep apnea (adult) (pediatric) Pulmonary emphysema, unspecified emphysema type (CMS/HCC) Abnormal wellness exam Screening for colon cancer Special screening for malignant neoplasms, colon Degeneration of intervertebral disc of lumbosacral region with discogenic back pain and lower extremity pain- Primary Obstructive sleep apnea Obstructive sleep apnea (adult) (pediatric) Pulmonary emphysema, unspecified emphysema type (CMS/HCC) Morbid obesity ([facility]/HCC) Morbid obesity 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) Hiatal hernia with GERD and esophagitis Stage 3a chronic kidney disease (HCC) (CMS/HCC) Hypothyroidism, unspecified type (CMS/HCC)- Primary Chronic kidney disease, stage 3a (HCC) (CMS/HCC) Obstructive sleep apnea Obstructive sleep apnea (adult) (pediatric) Spinal stenosis of thoracolumbar region Asthma, unspecified asthma severity, unspecified whether complicated, unspecified whether persistent (CMS/HCC) Pulmonary emphysema, unspecified emphysema type (CMS/HCC) Hiatal hernia with GERD and esophagitis Morbid obesity (CMS/HCC) Morbid obesity Anxiety Anxiety state, unspecified Depression, unspecified depression type (CMS/HCC) Migraine with aura and without status migrainosus, not intractable (CMS/HCC) Cigarette nicotine dependence without complication Neuropathy Mononeuritis of unspecified site Chronic fatigue syndrome with fibromyalgia Post herpetic neuralgia (CMS/HCC) Herpes zoster with other nervous system complications Degeneration of intervertebral disc of lumbosacral region Primary osteoarthritis involving multiple joints Spinal stenosis of thoracolumbar region documented in this encounter [facility]* Diagnosis Neuropathy- Primary Mononeuritis of unspecified site Hiatal hernia with GERD and esophagitis 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 Degeneration of intervertebral disc of lumbosacral region Primary osteoarthritis involving multiple joints Morbid obesity ([facility]-HCC) Morbid obesity Chronic fatigue syndrome with fibromyalgia Spinal stenosis of thoracolumbar region Post herpetic neuralgia Herpes zoster with other nervous system complications Stage 3a chronic kidney disease (CMS-HCC) Obstructive sleep apnea Obstructive sleep apnea (adult) (pediatric) Pulmonary emphysema, unspecified emphysema type (HCC) Abnormal wellness exam Screening for colon cancer Special screening for malignant neoplasms, colon Degeneration of intervertebral disc of lumbosacral region with discogenic back pain and lower extremity pain- Primary Obstructive sleep apnea Obstructive sleep apnea (adult) (pediatric) Pulmonary emphysema, unspecified emphysema type (HCC) Morbid obesity ([facility]-HCC) Morbid obesity 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 Hiatal hernia with GERD and esophagitis Stage 3a chronic kidney disease (CMS-HCC) Hypothyroidism, unspecified type- Primary Chronic kidney disease, stage 3a (CMS-HCC) Obstructive sleep apnea Obstructive sleep apnea (adult) (pediatric) Spinal stenosis of thoracolumbar region Asthma, unspecified asthma severity, unspecified whether complicated, unspecified whether persistent (HCC) Pulmonary emphysema, unspecified emphysema type (HCC) Hiatal hernia with GERD and esophagitis Morbid obesity (CMS-HCC) Morbid obesity Anxiety Anxiety state, unspecified Depression, unspecified depression type Migraine with aura and without status migrainosus, not intractable Cigarette nicotine dependence without complication Neuropathy Mononeuritis of unspecified site Chronic fatigue syndrome with fibromyalgia Post herpetic neuralgia Herpes zoster with other nervous system complications Obstructive sleep apnea Obstructive sleep apnea (adult) (pediatric) Degeneration of intervertebral disc of lumbosacral region, unspecified whether pain present Morbid obesity ([facility]) Morbid obesity Hypothyroidism, unspecified type Cigarette nicotine dependence without complication Pulmonary emphysema, unspecified emphysema type (HCC) Herpes zoster without complication Encounter for screening mammogram for malignant neoplasm of breast 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 Primary osteoarthritis involving multiple joints Spinal stenosis of thoracolumbar region Neuropathy Mononeuritis of unspecified site Chronic fatigue syndrome with fibromyalgia Post herpetic neuralgia Herpes zoster with other nervous system complications Degeneration of intervertebral disc of lumbosacral region Primary osteoarthritis involving multiple joints Spinal stenosis of thoracolumbar region documented in this encounter [facility]* Diagnosis Neuropathy- Primary Mononeuritis of unspecified site Hiatal hernia with GERD and esophagitis 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 Degeneration of intervertebral disc of lumbosacral region Primary osteoarthritis involving multiple joints Morbid obesity ([facility]) Morbid obesity Chronic fatigue syndrome with fibromyalgia Spinal stenosis of thoracolumbar region Post herpetic neuralgia Herpes zoster with other nervous system complications Stage 3a chronic kidney disease ([facility]) Obstructive sleep apnea Obstructive sleep apnea (adult) (pediatric) Pulmonary emphysema, unspecified emphysema type ([facility]) Abnormal wellness exam Screening for colon cancer Special screening for malignant neoplasms, colon Degeneration of intervertebral disc of lumbosacral region with discogenic back pain and lower extremity pain- Primary Obstructive sleep apnea Obstructive sleep apnea (adult) (pediatric) Pulmonary emphysema, unspecified emphysema type (HCC) Morbid obesity ([facility]) Morbid obesity 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 Hiatal hernia with GERD and esophagitis Stage 3a chronic kidney disease ([facility]) Hypothyroidism, unspecified type- Primary Chronic kidney disease, stage 3a ([facility]) Obstructive sleep apnea Obstructive sleep apnea (adult) (pediatric) Spinal stenosis of thoracolumbar region Asthma, unspecified asthma severity, unspecified whether complicated, unspecified whether persistent (HCC) Pulmonary emphysema, unspecified emphysema type (HCC) Hiatal hernia with GERD and esophagitis Morbid obesity ([facility]) Morbid obesity Anxiety Anxiety state, unspecified Depression, unspecified depression type Migraine with aura and without status migrainosus, not intractable Cigarette nicotine dependence without complication Neuropathy Mononeuritis of unspecified site Chronic fatigue syndrome with fibromyalgia Post herpetic neuralgia Herpes zoster with other nervous system complications Obstructive sleep apnea Obstructive sleep apnea (adult) (pediatric) Degeneration of intervertebral disc of lumbosacral region, unspecified whether pain present Morbid obesity (CMS-HCC) Morbid obesity Hypothyroidism, unspecified type Cigarette nicotine dependence without complication Pulmonary emphysema, unspecified emphysema type (HCC) Herpes zoster without complication Encounter for screening mammogram for malignant neoplasm of breast 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 Primary osteoarthritis involving multiple joints Spinal stenosis of thoracolumbar region Neuropathy Mononeuritis of unspecified site Chronic fatigue syndrome with fibromyalgia Post herpetic neuralgia Herpes zoster with other nervous system complications Degeneration of intervertebral disc of lumbosacral region Primary osteoarthritis involving multiple joints Spinal stenosis of thoracolumbar region documented [facility] this encounter [facility]ative[facility] Consultation (Routine) - Pending Review Specialty Diagnoses / Procedures Referred By Joaquin miller Referred To Contact Sleep Medicine Diagnoses Obstructive sleep apnea Pulmonary emphysema, unspecified emphysema type (CMS/HCC) Procedures PA OFFICE/OUTPATIENT NEW HIGH MDM 60 MINUTES Olimpia Yu NP [address] [facility] [place] [address] Bennie Welsh MD [address] [place] [id number] Referral ID Status Reason Start Date Expiration Date Visits Requested Visits Authorized [id number] Pending Review Specialty Services Required 02/27/2024 08/25/2024 1 1 * Consultation (Routine) - Authorized Specialty Diagnoses / Procedures Referred By Joaquin t Referred To Contact Pain Medicine Diagnoses Degeneration of intervertebral disc of lumbosacral region Primary osteoarthritis involving multiple joints Spinal stenosis of thoracolumbar region Procedures PA OFFICE/OUTPATIENT NEW HIGH MDM 60 MINUTES Olimpia Yu NP [address] [place] [address] Nicko Blue MD [address] [facility] [address] [place] [address] Referral ID Status Reason Start Date Expiration Date Visits Requested Visits Authorized [id number] Authorized Specialty Services Required 02/21/2024 08/19/2024 1 1 Scheduling Instructions Please include MRI reports/ Xrays/ CT's. Thank you! * Imaging (Routine) - Authorized Specialty Diagnoses / Procedures Referred By Joaquin miller Referred To Contact Cardiology Diagnoses Stage 3a chronic kidney disease (HCC) (CMS/HCC) Obstructive sleep apnea Procedures Echocardiogram 2D complete Olimpia Yu NP [address] [place] [phone] [facility] [address] [place] [address] Phone: [phone] Referral ID Status Reason Start Date Expiration Date Visits Requested Visits Authorized [id number] Authorized Perform Procedure 02/21/2024 08/19/2024 1 1 [facility] Summary Purpose Family History No Family History [...] were obtained and stable. Dictated by Aisha El APRN [facility] Signed and Approved by: AISHA EL 07/18/2019 12:39:00 Additional Source Comments INFORMATION SOURCE (unrecogn ized section and content) DATE CREATED AUTHOR 09/18/2018 [facility] DATE CREATED AUTHOR AUTHOR'S ORGANIZ ATION 03/26/2020 [facility] DATE CREATED AUTHOR AUTHOR'S ORGANIZ ATION 11/03/2024 [facility] d[facility] Specialists [facility] Care Teams (unrecognized sec tion and content) Aircraft Pneudraulic Systems Mechanic Relationship Specialty Start Date End Date Aiden Santamaria MD [address] [place] [address] PCP - General Family Medicine 01/07/24 Olimpia Yu NP [address] [place] [address] Nurse Practitioner Family Medicine 01/07/24 [employer] Mechanic Relationship Specialty Start Date End Date Aiden Santamaria MD [address] [place] [address] PCP - General Family Medicine 01/07/24 Olimpia Yu NP [address] [place] [address] Nurse Practitioner Family Medicine 01/07/24 [employer] Mechanic Relationship Specialty Start Date End Date Olimpia Yu NP [address] [place] [address] Nurse Practitioner Family Medicine 01/07/24 Olimpia Yu Nurse Practitioner 03/26/24 [employer] Mechanic Relationship Specialty Start Date End Date Olimpia Yu NP [address] [place] [address] Nurse Practitioner Family Medicine 01/07/24 Olimpia Yu Nurse Practitioner 03/26/24 [employer] Mechanic Relationship Specialty Start Date End Date Olimpia Yu NP [address] [place] [address] Nurse Practitioner Family Medicine 01/07/24 Olimpia Yu Nurse Practitioner 03/26/24 [employer] Mechanic Relationship Specialty Start Date End Date Aiden Santamaria MD [address] [place] [address] PCP - General Family Medicine 01/07/24 Olimpia Yu NP [address] [place] [address] Nurse Practitioner Family Medicine 01/07/24 [employer] Mechanic Relationship Specialty Start Date End Date Aiden Santamaria MD [address] [place] [address] PCP - General Family Medicine 01/07/24 Olimpia Yu NP [address] [place] [address] Nurse Practitioner Family Medicine 01/07/24 [employer] Mechanic Relationship Specialty Start Date End Date Aiden Santamaria MD [address] [place] [address] PCP - General Family Medicine 01/07/24 Olimpia Yu NP [address] [place] [address] Nurse Practitioner Family Medicine 01/07/24 [employer] Mechanic Relationship Specialty Start Date End Date Olimpia Yu NP [address] [place] [address] Nurse Practitioner Family Medicine 01/07/24 Olimpia Yu Nurse Practitioner 03/26/24 [employer] Mechanic Relationship Specialty Start Date End Date Olimpia Yu NP [address] [place] [address] Nurse Practitioner Family Medicine 01/07/24 Olimpia Yu Nurse Practitioner 03/26/24 [employer] Mechanic Relationship Specialty Start Date End Date Aiden Santamaria MD [address] [place] [address] PCP - General Family Medicine 07/19/24 Olimpia Yu NP [address] [place] [address] Nurse Practitioner Family Medicine 01/07/24 Olimpia Yu Nurse Practitioner 03/26/24 [employer] Mechanic Relationship Specialty Start Date End Date Aiden Santamaria MD [address] [place] [address] PCP - General Family Medicine 07/19/24 Olimpia Yu NP Nurse Practitioner Family Medicine 01/07/24 Olimpia Yu Nurse Practitioner 03/26/24 [employer] Mechanic Relationship Specialty Start Date End Date Aiden Santamaria MD [address] [place] [address] PCP - General Family Medicine 07/19/24 Olimpia Yu NP Nurse Practitioner Family Medicine 01/07/24 Olimpia Yu Nurse Practitioner 03/26/24 [employer] Mechanic Relationship Specialty Start Date End Date Aiden Santamaria MD [address] [place] [address] PCP - General Family Medicine 07/19/24 Olimpia Yu NP Nurse Practitioner Family Medicine 01/07/24 Olimpia Yu Nurse Practitioner 03/26/24 [employer] Mechanic Relationship Specialty Start Date End Date Aiden Santamaria MD [address] [place] [address] PCP - General Family Medicine 07/19/24 Olimpia Yu NP Nurse Practitioner Family Medicine 01/07/24 Olimpia Yu Nurse Practitioner 03/26/24 [employer] Mechanic Relationship Specialty Start Date End Date Aiden Santamaria MD [address] [place] [address] PCP - General Family Medicine 07/19/24 Olimpia Yu NP Nurse Practitioner Family Medicine 01/07/24 Olimpia Yu Nurse Practitioner 03/26/24 [employer] Mechanic Relationship Specialty Start Date End Date Aiden Santamaria MD [address] [place] [address] PCP - General Family Medicine 07/19/24 Forest Godoy DO [address] [place] [address] [facility] 08/06/24 07/08/87 Olimpia Yu NP Nurse Practitioner Family Medicine 01/07/24 Olimpia Yu Nurse Practitioner 03/26/24 [employer] Mechanic Relationship Specialty Start Date End Date Aiden Santamaria MD [address] [place] [address] PCP - [facility] 07/19/24 Forest Godoy DO [address] [place] [address] [facility] 08/06/24 07/08/87 Olimpia Yu NP Nurse Practitioner [facility] 01/07/24 Olimpia Yu Nurse Practitioner 03/26/24 Reason for Visit (unrecogniz ed section and content) Reason Comments Follow-up Reason Onset Date Comments Med Refill 04/18/2024 Reason Onset Date Comments Med Refill 05/13/2024 Reason Comments Establish Care Reason Comments Med Change Request Reason Onset Date Comments Med Refill 06/12/2024 Reason Onset Date Comments Med Refill 06/24/2024 Reason Onset Date Comments Med Refill 07/08/2024 Reason Onset Date Comments Med Refill 07/27/2024 Reason Onset Date Comments Med Refill 08/08/2024 Reason Onset Date Comments Med Refill 09/06/2024 Reason Onset Date Comments Med Refill 10/05/2024 Reason Onset Date Comments Med Refill 12/28/2024 FOR RECORDS PERTAINING TO PATIENTS WHO ARE [...] BE BASED ON THE PRIMARY CLINICAL RECORDS. [facility]. provides no warranty or guarantee of the accuracy or completeness of information in this document.
--- OUTSIDE RECORDS SUMMARY | 2025-01-21 11:13 | XMS_ITS | Encounter Summary ---
Author Organization [facility] Address [address] [place] [facility] [place] [address] Care Team Providers Care Vault Attendant Name Role Phone Olimpia Yu CHEMICAL MILLING PROCESSOR Unavailable [phone] Aiden Carrillo MD Primary Care Provider [phone] Forest Godoy DO Unavailable [phone] Encounter Details Date Type Department Care Team ([facility] Contact Info) Description 04/18/2024 Orders Only [facility] [address] [place] [address] Olimpia Yu NP Social History Tobacco Use Types Packs/Day Years Used Date Smoking Tobacco: Every Day Cigarettes 1.4 43.6 Started: 1979 Smokeless Tobacco: Never Alcohol Use Standard Drinks/Week Comments Never 0 (1 standard drink = 0.6 oz pur e alcohol) Comments No Sex and Gender Information Value Date Recorded Sex Assigned at Not on file Legal Sex Female 6:39 PM EDT Gender Identity Not on file Sexual Orientation Not on file documented as of this encounter Plan of Treatment Upcoming Encounters Date Type Department Care Team ([facility] Contact Info) Description 01/30/2025 2:00 PM EDT Office Visit [facility] [address] [place] [address] Camilla Recinos, CHEMICAL MILLING PROCESSOR [address] [place] [address] documented as of this encounter Visit Diagnoses Not on filedocumented in this encounter Care Teams Vault Attendant Relationship Specialty Start Date End Date Aiden Carrillo MD [address] [facility] [place] [address] PCP - General Family Medicine 07/19/24 Forest Godoy DO [address] [place] [address] PCP - [facility] 08/06/24 07/08/87 Olimpia Yu NP Nurse Practitioner Family Medicine 01/07/24 Olimpia Yu Nurse Practitioner 03/26/24 documented as of this encounter
--- OUTSIDE RECORDS SUMMARY | 2025-01-21 11:13 | XMS_ITS | Encounter Summary ---
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 (Primary Dx) Social History Tobacco Use Types Packs/Day Years Used Date Smoking Tobacco: Never Assessed Comments Unknown Sex and Gender Information Value Date Recorded Sex Assigned at Not on file Legal Sex Female 6:39 PM EDT Gender Identity Not on file Sexual Orientation Not on file documented as of this encounter Plan of Treatment Upcoming Encounters Date Type Department Care Team (Late st Contact Info) Description 01/30/2025 2:00 PM EDT Office Visit [facility] [address] [place] [address] Camilla Recinos NP [address] [place] [address] Scheduled Orders Name Type Priority Associated Diagnoses Orde r Schedule TSH W/REFLEX TO FT4 Lab Routine 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 Expected: 03/25/2024 (Approximate), Expires: 02/11/2025 documented as of this encounter Visit Diagnoses Diagnosis 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- Primary documented in this encounter Care Teams Health It Specialist Relationship Specialty Start Date End Date Aiden Carrillo MD [address] [place] [address] PCP - General Family Medicine 01/07/24 03/25/24 Aiden Carrillo MD [address] [place] [address] PCP - General Family Medicine 07/19/24 Forest Godoy DO [address] [address] PCP - [facility] 08/06/24 07/08/87 Olimpia Yu NP [address] [place] [address] Nurse Practitioner Family Medicine 01/07/24 Olimpia Yu Nurse Practitioner 03/26/24 documented as of this encounter
--- OUTSIDE RECORDS SUMMARY | 2025-01-21 11:13 | XMS_ITS | Encounter Summary ---
Author Organization [facility] Address [address] [place] [address] Care Team Providers Care Pleasure Craft Sailor Name Role Phone Aiden Carrillo MD Primary Care Provider [phone] Olimpia Yu SENIOR BENEFITS ANALYST Unavailable [phone] Aiden Carrillo MD Primary Care Provider [phone] Forest Godoy DO Unavailable [phone] Encounter Details Date Type Department Care Team (Late st Contact Info) Description 03/22/2024 Orders Only [facility] [address] [place] [address] Olimpia Yu NP 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 (Primary Dx) Social History Tobacco Use [...] 01/30/2025 2:00 PM EDT Office Visit [facility] [address] [place] [address] Camilla Recinos NP [address] [place] [address] documented as of this encounter Visit Diagnoses Diagnosis 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- Primary documented in this encounter Care Teams Pleasure Craft Sailor Relationship Specialty Start Date End Date Aiden Carrillo MD [address] [place] [address] PCP - General Family Medicine 01/07/24 03/25/24 Aiden Carrillo MD [address] [place] [address] PCP - General Family Medicine 07/19/24 Forest Godoy DO [address] [address] PCP - [facility] 08/06/24 07/08/87 Olimpia Yu NP [address] [place] [address] Nurse Practitioner Family Medicine 01/07/24 Olimpia Yu Nurse Practitioner 03/26/24 documented as of this encounter
--- OUTSIDE RECORDS SUMMARY | 2025-01-21 11:13 | XMS_ITS | Clinical Summary ---
Author Organization [facility] Address [address] [place] [address] Care Team Providers Care Corporate Trainer Name Role Phone Olimpia Yu BELLY DUMP DRIVER Unavailable [phone] Aiden Carrillo MD Primary Care Provider [phone] Forest Godoy DO Unavailable [phone] Allergies No known active allergies Medications diphenhydrAMINE 12.5 MG/5ML elixir 20 mL, aluminum-magnesium hydroxide-simethic one 400-400-40 MG/5ML suspension 20 mL, lidocaine 2 % solution 20 mL Swish and spit 15 mL every 4 (four) hours if needed for mucositis Active albuterol HFA 90 mcg/act inhalerIndications :Asthma,Chronic Obstructive Pulmonary Disease,Pulmonary Emphysema Inhale 2 puffs every 4 (four) hours if needed for wheezing or shortness of breath 18 g 3 02/21/20 24 Active levothyroxine (Synthroid, Levoxyl) 150 MCG tablet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 Take before meals. 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 Take 1 tablet (5 mcg) by mouth Daily 30 tablet 05/16/20 24 025 Active pantoprazole (Protonix) 40 MG EC tabletIndications: Hiatal hernia with GERD and esophagitis Take 1 tablet (40 mg) by mouth 1 (one) time each day at the same time 90 tablet 05/16/20 24 Active Additional Information Patient taking differently:40 mg OralDaily PRN, heart burn, Reported on 10/27/2024 semaglutide (Ozempic) 2 MG/1.5ML solution pen-injectorIndica tions:Morbid obesity ([facility]) Inject 1 mg under the skin 1 (one) time per week 1.5 mL 11 06/28/19 25 Active pregabalin (Lyrica) 75 MG capsuleIndications :Fibromyalgia Syndrome,Neuropath ic Pain Take 1 capsule (75 mg) by mouth in the morning and 1 capsule (75 mg) before bedtime. 60 capsule 2 10/28/19 25 Active tiZANidine (Zanaflex) 2 MG capsuleIndications :Spinal stenosis of thoracolumbar region Take 1 capsule (2 mg) by mouth every 8 (eight) hours if needed for muscle spasms 90 capsule 3 10/28/19 25 025 Active oxyCODONE-acetamin ophen (Percocet) 5-325 MG tabletIndications: Degeneration of intervertebral disc of lumbosacral region,Primary osteoarthritis involving multiple joints,Spinal stenosis of thoracolumbar region Take 1 tablet by mouth every 8 (eight) hours if needed for severe pain 90 tablet 12/31/19 25 025 Active oxyCODONE-acetamin ophen (Percocet) 5-325 MG tabletIndications: Degeneration of intervertebral disc of lumbosacral region,Primary osteoarthritis involving multiple joints,Spinal stenosis of thoracolumbar region Take 1 tablet by mouth every 8 (eight) hours if needed for severe pain 90 tablet 12/02/19 25 025 Discontin ued(Reord er) Active Problems Problem Noted Date Diagnosed Date Herpes zoster without complication 10/27/2024 Assessment & Plan (10/27/2024 1:37 PM EDT): Saw ID in the past Dr Colunga Used to take famvir D/w Vilma Carrillo, will trial valtrex 500mg daily for suppression Encounter for screening mamm ogram for malignant neoplasm of breast 10/27/2024 DDD (degenerative disc disease), cervical 2024 Overview (08/03/2024): MRI C spine; 10/19/2019 mild foraminal narrowing C5-C6 L >R Cigarette nicotine dependence without complicati on 08/01/2024 Assessment & Plan (10/27/2024 7:32 AM EDT): The patient has been advised of the risks of continued smoking: stroke, IN, all forms of cancer, lung disease, and . Options for quitting smoking include: cold turkey, hypnosis, acupuncture, nicotine replacement meds (gum, lozenges, and patches), Buproprion, and Varenicline. At this time pt is encouraged to evaluate their goals for wanting to quit smoking, and reach out to provider when ready to start this process Assessment & Plan (08/01/2024 8:47 AM EST): The patient has been advised of the risks of continued smoking: stroke, IN, all forms of cancer, lung disease, and . Options for quitting smoking include: cold turkey, hypnosis, acupuncture, nicotine replacement meds (gum, lozenges, and patches), Buproprion, and Varenicline. At this time pt is encouraged to evaluate their goals for wanting to quit smoking, and reach out to provider when ready to start this process Abnormal wellness exam 02/27/2024 Assessment & Plan (02/27/2024 11:03 AM EDT): I have reviewed Ht/Wt/BMI, I have reviewed [...] sleep per night. Screening for colon cancer 02/27/2024 Chronic kidney disease, stage 3a 02/21/2024 Assessment & Plan (08/01/2024 8:45 AM EST): Based on lab findings Assessment & Plan (03/26/2024 7:44 PM EDT): On BMP from 03/21 Creatinine improved to 1.05 eGFR improved to 54 Continue to monitor. Avoid nephrotoxic agents. Pt requests to hold off on Nephrology referral at this time. Will continue to monitor closely Assessment & Plan (02/27/2024 10:39 AM EDT): New onset; Discovered with ab work; Has never seen Nephro in past; Will recheck labs in 2 weeks and determine if nephro referral is warranted. Monitor closely, avoid nephrotoxic agents. Obstructive sleep apnea 02/21/2024 Overview (08/01/2024): Sleep study completed 03/19/2024 AHI: 16.1, mod JENNY Assessment & Plan (10/27/2024 1:26 PM EDT): You have a diagnosis of obstructive sleep apnea. It is recommended that you wear your PAP device any time while in bed sleeping. Not using the PAP device can increase your risk of elevated/uncontrolled high blood pressure, atrial fibrillation, heart attack, stroke, or sudden . Has not had titration study, declines scheduling Assessment & Plan (08/01/2024 3:18 PM EST): You have a diagnosis of obstructive sleep apnea. It is recommended that you wear your PAP device any time while in bed sleeping. Not using the PAP device can increase your risk of elevated/uncontrolled high blood pressure, atrial fibrillation, heart attack, stroke, or sudden . Has not had titration study, wants to hold on titration study d/t cost Assessment & Plan (03/26/2024 7:55 PM EDT): Had sleep study completed last week- awaiting results. Assessment & Plan (02/27/2024 10:36 AM EDT): Longstanding history of JENNY; Does not wear CPAP. Current smoker. Was 1 ppd X20+ years. Has decreased to 0.5ppd for past month. Referral for sleep study and PFT's placed. Nausea 02/17/2024 Overview (02/17/2024): ZOFRAN ODT 4MG ONE TABLET Q 8HRS PRN FOR N/V QSF 30 DAY SUPPLY ZERO REFILLS CALLED INTO [facility] WITH FAUSTINO BY CAR STARTER -SCR Rectocele 01/31/2024 Vaginal atrophy 01/31/2024 COPD (chronic obstructive pulmonary disease) wit h emphysema 01/31/2024 Assessment & Plan (10/27/2024 1:26 PM EDT): No longer using her trelegy Assessment & Plan (08/01/2024 8:44 AM EST): Current meds; trelegy, and albuterol Assessment & Plan (03/26/2024 7:46 PM EDT): Currently using Trelegy dauly and Albuterol PRN. Completed PFT's- indicative of COPD. Had sleep study completed last week- awaiting results. Feels symtoms are improved significantly since using Trelegy. Still current everyday smoker, reports she is down to smoking 0.5ppd. Provided pt with smoking cessation education. Assessment & Plan (02/27/2024 10:37 AM EDT): Current smoker. Was 1 ppd X20+ years. Has decreased to 0.5ppd for past month. Order for PFT's placed. Startted on Trelegy daily and Albuterol PRN pending PFT's. Asthma 01/31/2024 Assessment & Plan (08/01/2024 3:00 PM EST): Current meds: albuterol, trelegy Albuterol few times weekly Chronic fatigue syndrome with fibromyalgia 01/30 Assessment & Plan (02/27/2024 10:45 AM EDT): Ongoing condition for 20 years. In combination with ongoing post herpetic neuralgia. Was previously taking Lyrica was past provider Dr. Alford. Tried Gabapentin in past, did not tolerate due to side effects. Will reinitiate Lyrica. OARRS reviewed. Closely monitor. Abdominal hernia 01/31/2024 Hiatal hernia with GERD and esophagitis 01/31/20 Assessment & Plan (08/01/2024 3:00 PM EST): Recommendations: freq small meals, nothing to eat or drink at least 2 hours prior to bed, limit caffeine, alcohol, as well as spicy foods Meds to limit or avoid if possible: NSAIDS Elevate HOB if possible Current meds: pantoprazole Assessment & Plan (02/27/2024 10:39 AM EDT): Had hernia repair several years ago; recurrent. IS not interested in surgical treatment at this time. Discussed in detail concerning symptoms to monitor for. Narcolepsy 01/31/2024 Neuropathy 01/31/2024 Overview (08/01/2024): Med agreement signed: 08/01/24 Assessment & Plan (08/01/2024 4:45 PM EST): Is on lyrica on at bedtime OARRS reviewed I would recommend trying to increase the lyrica to 75mg BID for more effective coverage Med agreement signed: 08/01/24 Recommend pt try to get this trough good Rx, card given Post herpetic neuralgia 01/31/2024 Assessment & Plan (08/01/2024 4:45 PM EST): Lyrica OARRS reviewed Assessment & Plan (02/27/2024 11:09 AM EDT): Has had shingles outbreaks multiple times, states in 2010 had shingles 5+ times in one year and 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 Tried gabapentin for neuropathy, did not tolerate. Was taking Lyrica for Neuropathy with Dr. Alford. Reinitiated Lyrica. OARRS reviewed. Herpes stomatitis 01/31/2024 Goiter diffuse 01/31/2024 DLE (discoid lupus erythematosus) 01/31/2024 Depression 01/31/2024 Overview (08/01/2024): 08/01/24 PHQ =15 Assessment & Plan (08/01/2024 4:41 PM EST): PHQ 9 score= 15 Anxiety 01/31/2024 Overview (08/01/2024): 08/01/24 DWAIN 7=3 Assessment & Plan (08/01/2024 4:40 PM EST): DWAIN 7 = 3 Osteopenia after menopause 01/31/2024 Family history of bleeding or clotting disorder 01/31/2024 Myositis 07/29/2012 Degeneration of intervertebral disc of lumbosacr al region 07/29/2012 Overview (08/03/2024): MRI lumbar spine: 10/21/2019: mild anterior wedging L1, mild compression fracture vs developmental variant, facet arthropathy L4-L5 Assessment & Plan (10/27/2024 1:38 PM EDT): Current meds: percocet TID Lyrica as well OARRS reviewed Pt is continuing w weight loss, or more activity as well Hoping as more weight loss less pain and can decrease percocet use Assessment & Plan (03/26/2024 7:45 PM EDT): Currently taking Percocet 5mg TID And Lyrica 75mg BID Referred to PM, will be scheduling to see them soon. Pt reports pain has improved moderatel since restarting Lyrica and Percocet. 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 Whereas before she could [...] her overall quality of life. OARRS reviewed. Assessment & Plan (02/27/2024 10:55 AM EDT): Chronic ongoing. Several MRI's in past @ [facility]- Will request records. Was following Pain Management in [place], [place]; Was prescribed Oxycodone 7.5mg Q8hrs at [...] and Referral sent to PM; OARRS reviewed. Trigeminal herpes zoster 07/29/2012 Hypothyroidism 07/29/2012 Assessment & Plan (10/27/2024 7:29 AM EDT): Current meds: levothyroxine and cytomel Recheck labs Assessment & Plan (08/01/2024 7:40 PM EST): Current meds: levothyroxine and cytomel Recheck labs Assessment & Plan (03/26/2024 7:45 PM EDT): TSH was still elevated on last check, at 58 increased Levothyroxine to 150mcg and initiated Cytomel 5mg. Will recheck again in 5 weeks. Assessment & Plan (02/27/2024 10:41 AM EDT): Michael's thyroiditis. Was off of Levothyroxine for 4-6 months. TSH 94 in January; Initiated Levothyroxine 50mcg. Recheck ordered in 6 weeks. Will reassess dosing with next lab work. Irritable bowel syndrome 07/29/2012 Migraine with aura 07/29/2012 Assessment & Plan (08/01/2024 7:41 PM EST): Has been prescribed imitrex injectable, however cannot afford this Morbid obesity 07/29/2012 Assessment & Plan (10/27/2024 7:29 AM EDT): Discussed with patient their BMI (actual, verses recommended). We have also discussed lifestyle modifications: attempts to perform physical activity as chronic conditions allow, also to monitor dietary intake: increasing protein/fruits/veggies and lowering carb intake (unless contraindicated). Limit sodas, juices, and sugary drinks. Is currently taking ozempic through compounding pharmacy Assessment & Plan (08/01/2024 2:53 PM EST): Discussed with patient their BMI (actual, verses recommended). We have also discussed lifestyle modifications: attempts to perform physical activity as chronic conditions allow, also to monitor dietary intake: increasing protein/fruits/veggies and lowering carb intake (unless contraindicated). Limit sodas, juices, and sugary drinks. Is currently taking ozempic 45 pounds lost since 03/01 Assessment & Plan (03/26/2024 7:45 PM EDT): Is taking Semaglutide 0.25mg, on fourth week [...] Continue to monitor for efficacy and tolerance. Assessment & Plan (02/27/2024 10:42 AM EDT): Discussed with patient their BMI (actual, verses [...] interested in Wegovy via compounding pharmacy in [facility] for weight loss. Will send in RX for one month and reassess. Osteoarthritis 07/29/2012 Spinal stenosis 07/29/2012 Assessment & Plan (08/01/2024 7:40 PM EST): Has gone through pain mgmt in the past Most recent MRI lumbar spine: ADHD (attention deficit hyperactivity disorder) Resolved Problems Problem Noted Date Diagnosed Date Resolved Date Encounter for breast cancer screening using non-mammogram modality 02/27/2024 10/27/2024 CKD (chronic kidney disease) stage 2, GFR 60-89 ml/min 02/21/2024 02/21/2024 Tobacco abuse 01/31/2024 08/01/2024 Encounters Date Type Department Care Team Description 12/28/2024 Refill [facility] [address] [place] [address] Camilla Recinos NP Degeneration of intervertebral disc of lumbosacral region; Primary osteoarthritis involving multiple joints; Spinal stenosis of thoracolumbar region 12/01/2024 Refill [facility] [address] [place] [address] Camilla Recinos NP Degeneration of intervertebral disc of lumbosacral region; Primary osteoarthritis involving multiple joints; Spinal stenosis of thoracolumbar region 12/01/2024 Telephone [facility] [address] [place] [address] Camilla Recinos NP 10/27/2024 1:00 PM EDT Office Visit [facility] [address] [place] [id number] Camilla Recinos NP Degeneration of intervertebral disc of lumbosacral region (Primary Dx); Obstructive sleep apnea; Degeneration of intervertebral disc of lumbosacral region, unspecified whether pain present; Morbid obesity (CMS-HCC); Hypothyroidism, unspecified type ; Cigarette nicotine dependence without complication; Pulmonary emphysema, unspecified emphysema type (HCC); Herpes zoster without complication; Encounter for screening mammogram for malignant neoplasm of breast; 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 ; Primary osteoarthritis involving multiple joints; Spinal stenosis of thoracolumbar region; Neuropathy; Chronic fatigue syndrome with fibromyalgia; Post herpetic neuralgia 10/27/2024 Refill [facility] [address] [place] [phone] Camilla Recinos NP Herpes zoster without complication 10/27/2024 Telephone [facility] [address] [place] [address] Camilla Recinos NP 10/27/2024 Bamboo flowsheet [facility] [address] [place] [address] Camilla Recinos NP 10/26/2024 Travel from Last 3 Months Immunizations Immunization Administration Dates Next Due Influenza, High Dose Seasonal, Preservative Free 03/13/2020 Pneumococcal Conjugate PCV 13 03/13/2020 Family History Medical History Relation Name Comments No Known Problems Brother 1 MVA No Known Problems Brother 2 J.K. Unintentio nal Overdose Kidney disease Daughter Emily Unintentional Overdose laryngeal cancer Father Mathew Depression Mother Rena Fibromyalgia Mother Rena Glomerulonephritis Mother Rena high blood pressure Mother Rena Arthritis Sister Leigh Ann Fibromyalgia Sister Leigh Ann Heart disease Sister Leigh Ann Lupus Sister Leigh Ann Hypertension Son Brian Bentley Parkinson White syndrome Son Brian Relation Name Status Comments Brother 1 Brother 2 J.K. Brother 3 Rony Alive Daughter Emily Father Mathew Mother Rena Alive Sister Leigh Ann Alive Son Brian Alive Social History Tobacco Use Types Packs/Day Years Used Date Smoking Tobacco: Every Day Cigarettes 1.4 43.6 Started: 1981 Smokeless Tobacco: Never Tobacco Cessation:Ready to Q uit: Yes; Counseling Given: Yes Alcohol Use Standard Drinks/Week Comments Never 0 (1 standard drink = 0.6 oz pur e alcohol) B1300 Health Literacy Answer Date Recor ded How often do you need to hav e someone help you when you read instructions, pamphlets, or other written material from your doctor or pharmacy? Never 10/26/2024 Humiliation, Afraid, Rape, and Kick questionnair e Answer Date Recorded Within the last year, have y ou been afraid of your partner or ex-partner? No 10/26/2024 Within the last year, have y ou been humiliated or emotionally abused in other ways by your partner or ex-partner? No Within the last year, have y ou been kicked, hit, slapped, or otherwise physically hurt by your partner or ex-partner? No 10/26/2024 Within the last year, have y ou been raped or forced to have any kind of sexual activity by your partner or ex-partner? No 10/26/2024 Social Connection and Isolat ion Panel [NHANES] Answer Date Recorded In a typical week, how many times do you talk on the phone with family, friends, or neighbors? More than three times a week 10/26/2024 How often do you get togethe r with friends or relatives? More than three times a week 10/26/2024 How often do you attend chur or lutheran services? More than 4 times per year 10/26/2024 Do you belong to any clubs o r organizations such as voodoo groups, unions, fraternal or athletic groups, or school groups? No 10/26/2024 How often do you attend meet ings of the clubs or organizations you belong to? Never 10/26/2024 Are you , , di vorced, , never , or living with a partner? 10/26/2024 AUDIT-C Answer Date Recorded Q1: How often do you have a drink containing alcohol? Never 10/26/2024 Q2: How many drinks containi ng alcohol do you have on a typical day when you are drinking? Patient does not drink Q3: How often do you have si x or more drinks on one occasion? Never 10/26/2024 Overall Financial Resource Strain (CARDIA) Answe r Date Recorded How hard is it for you to pa y for the very basics like food, housing, medical care, and heating? Very hard 10/26/2024 [facility] - Occupational Stress Questionnaire Answer Date Recorded Do you feel stress - tense, restless, nervous, or anxious, or unable to sleep at night because your mind is troubled all the time - these days? Rather much 10/26/2024 Exercise Vital Sign Answer Date Recorde d On average, how many days pe r week do you engage in moderate to strenuous exercise (like a brisk walk)? 3 days 10/26/2024 On average, how many minutes do you engage in exercise at this level? 10 min 10/26/2024 Hunger Vital Sign Answer Date Recorded Within the past 12 months, y ou worried that your food would run out before you got the money to buy more. Sometimes true Within the past 12 months, t he food you bought just didn't last and you didn't have money to get more. Never true PRAPARE - Transportation Answer Date Re corded In the past 12 months, has l ack of transportation kept you from medical appointments or from getting medications? Yes 10/07 In the past 12 months, has l ack of transportation kept you from meetings, work, or from getting things needed for daily living? Yes 10/26/2024 Housing Stability Vital Sign Answer Daryl e Recorded In the last 12 months, was t here a time when you were not able to pay the mortgage or rent on time? Yes 10/26/2024 In the past 12 months, how m any times have you moved where you were living? 3 10/26/2024 At any time in the past 12 m [facility], were you homeless or living in a penitentiary (including now)? No 10/26/2024 Comments No Sex and Gender Information Value Date Recorded Sex Assigned at Not on file Legal Sex Female 6:39 PM EDT Gender Identity Not on file Sexual Orientation Not on file Last Filed Vital Signs Vital Sign Reading Time Taken Comments Blood Pressure 138/82 10/27/2024 1:01 PM EDT Pulse 112 10/27/2024 1:01 PM EDT Temperature 36.9 C (98.5 F) 10/27/2024 1:01 PM EDT Respiratory Rate 22 10/27/2024 1:01 PM EDT Oxygen Saturation 95% 10/27/2024 1:01 PM EDT Inhaled Oxygen Concentration - - Weight 130 kg (287 lb 3.2 oz) 10/27/2024 1:01 PM EDT Height 152.4 cm (5') 08/01/2024 2:40 PM EST Body Mass Index 56.09 08/01/2024 2:40 PM EST Plan of Treatment Upcoming Encounters Date Type Department Care Team (Late st Contact Info) Description 01/30/2025 2:00 PM EDT Office Visit [facility] [address] [place] [address] Camilla Recinos NP [address] [place] [address] Health Maintenance Due Date Last Done Comments CT Colonography 1967 Colonoscopy 1967 Colorectal Cancer Screening 1967 FIT-DNA 1967 FIT 1967 FOBT 1967 Lung Cancer Screening Shared Decision Making 8 Sigmoidoscopy 1967 Pap Smear 1988 Cervical Cancer Screening 1997 HPV/Cotest 1997 Mammogram 2007 Medicare Annual Wellness (AWV) 02/24/2025 02/25/2024 Influenza Vaccine Discontinued 03/13/2020 Insurance [facility] [place] [address] Care Teams Corporate Trainer Relationship Specialty Start Date End Date Aiden Carrillo MD [address] [facility] [place] [address] PCP - General Family Medicine 07/19/24 Forest Godoy DO [address] [facility] [address] [place] [address] PCP - [facility] 08/06/24 07/08/87 Olimpia Yu NP Nurse Practitioner Family Medicine 01/07/24 Olimpia Yu Nurse Practitioner 03/26/24
--- OUTSIDE RECORDS SUMMARY | 2025-01-21 11:13 | XMS_ITS | Encounter Summary ---
Author Organization [facility] Address [address] [place] [address] Care Team Providers Care Cutting Tool Sharpener Name Role Phone Aiden Carrillo MD Primary Care Provider [phone] Olimpia Yu DIGITAL MUSIC INSTRUCTOR Unavailable [phone] Aiden Carrillo MD Primary Care Provider [phone] Forest Godoy DO Unavailable [phone] Encounter Details Date Type Department Care Team (Late st Contact Info) Description 03/08/2024 Orders Only [facility] [address] [place] [address] Olimpia Yu NP Social History [...] 01/30/2025 2:00 PM EDT Office Visit [facility] [address] [place] [phone] Camilla Recinos NP [address] [place] [phone] documented as of this encounter Visit Diagnoses Not on filedocumented in this encounter Care Teams Cutting Tool Sharpener Relationship Specialty Start Date End Date Aiden Carrillo MD [address] [place] [address] PCP - General Family Medicine 01/07/24 03/25/24 Aiden Carrillo MD [address] [place] [phone] PCP - General Family Medicine 07/19/24 Forest Godoy DO [address] [address] PCP - [facility] 08/06/24 07/08/87 Olimpia Yu NP [address] [place] [phone] Nurse Practitioner Family Medicine 01/07/24 Olimpia Yu Nurse Practitioner 03/26/24 documented as of this encounter
--- OUTSIDE RECORDS SUMMARY | 2025-01-21 11:13 | XMS_ITS | Continuity of Care Document ---
Author Organization [facility] Address [address] [place] [address] Phone [phone]
[2025-01-21 11:42] LABS: Glucose Urine UA NEGATIVE (NEGATIVE)
[2025-01-21 11:42] LABS: Hematocrit 48.2 % (36.0-48.0); Hemoglobin 17.0 g/dL (12.0-16.0); Immature Granulocytes Abs Auto 0.03 10^3/uL (0.00-0.03); Immature Granulocytes Pct Auto 0.3 % (0.0-0.5); Lymphocytes Absolute Auto 2.8 10^3/uL (1.2-3.8); Mean Corpuscular HGB Conc 35.3 g/dL (29.9-35.2); Mean Corpuscular Hemoglobin 32.5 pg (26.7-34.0); Mean Corpuscular Volume 92.2 fL (81.0-99.0); Platelet Count 319 10^3/uL (150-450); Red Blood Count 5.23 10^6/uL (4.20-5.40); White Blood Count 11.3 10^3/uL (4.0-11.0)
[2025-01-21 12:11] LABS: Alanine Aminotransferase 25 U/L (14-59); Albumin Globulin Ratio 0.8; Albumin Level 3.6 g/dL (3.4-5.0); Alkaline Phosphatase 83 U/L (46-116); Anion Gap 14.2; Aspartate Amino Transferase 18 U/L (15-37); Blood Urea Nitrogen 7.0 mg/dL (7.0-18.0); Calcium 9.4 mg/dL (8.5-10.1); Carbon Dioxide 22.8 mmol/L (21.0-32.0); Chloride 104 mmol/L (98-107); Cholesterol 218 mg/dL (<=200); Estimated GFR (African America >60 (>=60 mL/min/1.73m^2); Estimated GFR (Non-African Ame >60 (>=60 mL/min/1.73m^2); Globulin 4.7 g/dL; Glucose 96 mg/dL (74-106); HDL Cholesterol 60 mg/dL (40-60); Potassium 4.0 mmol/L (3.5-5.1); Sodium 137 mmol/L (136-145); Thyroid Stimulating Hormone 0.443 uIU/mL (0.358-3.740); Total Protein 8.3 g/dL (6.4-8.2); Triglycerides 99 mg/dL (<=150); VLDL CHOLESTEROL 19.8 mg/dL
== END 2025-01-21 11:08 | disposition home or self-care (01) ==
PROVIDERS: PCP Nurse Practitioner; Visit Provider Nurse Practitioner
DX: E03.9 Hypothyroidism, unspecified (principal); E66.01 Morbid (severe) obesity due to excess calories; G47.33 Obstructive sleep apnea (adult) (pediatric); J45.909 Unspecified asthma, uncomplicated; J43.9 Emphysema, unspecified; N18.31 Chronic kidney disease, stage 3a; F17.210 Nicotine dependence, cigarettes, uncomplicated
CPT/HCPCS: 36415; 80053; 80061; 81003; 84439; 84443; 85025

== ENCOUNTER 2025-02-16 12:33 | Outpatient (OUT) | payer MEDICARE, SELFPAY ==
--- OUTSIDE RECORDS SUMMARY | 2025-02-16 12:35 | XMS_ITS | Encounter Summary ---
Author Organization [facility] Address [address] [place] [address] Care Team Providers Care E Business Project Manager Name Role Phone Aiden Carrillo MD Primary Care Provider [phone] Olimpia Yu BILINGUAL COUNTER SALES RETAIL Unavailable [phone] Aiden Carrillo MD Primary Care Provider [phone] Forest Godoy DO Unavailable [phone] Encounter Details Date Type Department Care Team (Late st Contact Info) Description 02/12/2024 Orders Only 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) Social History Tobacco Use Types Packs/Day Years Used Date Smoking Tobacco: Never Assessed Comments Unknown Sex and Gender Information Value Date Recorded Sex Assigned at Not on file Legal Sex Female 6:39 PM EDT Gender Identity Not on file Sexual Orientation Not on file documented as of this encounter Plan of Treatment Scheduled Orders Name Type Priority Associated Diagnoses Orde r Schedule TSH W/REFLEX TO FT4 Lab Routine 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 Expected: 03/25/2024 (Approximate), Expires: 02/11/2025 documented as of this encounter Visit Diagnoses Diagnosis 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- Primary documented in this encounter Care Teams E Business Project Manager Relationship Specialty Start Date End Date Aiden Carrillo MD PCP - General Family Medicine 01/07/24 03/25/24 Aiden Carrillo MD PCP - General Family Medicine 07/19/24 Forest Godoy DO [address] [place] [address] PCP - [facility] 08/06/24 07/08/87 Olimpia Yu NP Nurse Practitioner Family Medicine 01/07/24 Olimpia Yu Nurse Practitioner 03/26/24 documented as of this encounter
--- OUTSIDE RECORDS SUMMARY | 2025-02-16 12:36 | XMS_ITS | Encounter Summary ---
Author Organization [facility] Address [address] [place] [address] Care Team Providers Care Machine Folder Name Role Phone Aiden Carrillo MD Primary Care Provider [phone] Olimpia Yu POWER SWEEPER OPERATOR Unavailable [phone] Aiden Carrillo MD Primary Care Provider [phone] Forest Godoy DO Unavailable [phone] Encounter Details Date Type Department Care Team (Late st Contact Info) Description 03/22/2024 Orders Only [facility] [address] [place] [id number] Olimpia Yu NP 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 (Primary Dx) Social History Tobacco Use Types Packs/Day Years Used Date Smoking Tobacco: Every Day Cigarettes 1.4 43.7 Started: 1979 Smokeless Tobacco: Never Alcohol Use Standard Drinks/Week Comments Never 0 (1 standard drink = 0.6 oz pur e alcohol) Comments No Sex and Gender Information Value Date Recorded Sex Assigned at Not on file Legal Sex Female 6:39 PM EDT Gender Identity Not on file Sexual Orientation Not on file documented as of this encounter Plan of Treatment Not on file documented as of this encounter Visit Diagnoses Diagnosis 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- Primary documented in this encounter Care Teams Machine Folder Relationship Specialty Start Date End Date Aiden Carrillo MD PCP - General Family Medicine 01/07/24 03/25/24 Aiden Carrillo MD PCP - General Family Medicine 07/19/24 Forest Godoy DO [address] [address] PCP - [facility] 08/06/24 07/08/87 Olimpia Yu NP Nurse Practitioner Family Medicine 01/07/24 Olimpia Yu Nurse Practitioner 03/26/24 documented as of this encounter
--- OUTSIDE RECORDS SUMMARY | 2025-02-16 12:36 | XMS_ITS | Encounter Summary ---
Author Organization [facility] Address [address] [place] [address] Care Team Providers Care Bleach Supervisor Name Role Phone Olimpia Yu GRADING MACHINE FEEDER Unavailable [phone] Aiden Carrillo MD Primary Care Provider [phone] Forest Godoy DO Unavailable [phone] Reason for Visit * Reason Onset Date Comments Med Refill 07/27/2024 Encounter Details Date Type Department Care Team (Late st Contact Info) Description 07/27/2024 Refill [facility] [address] [place] [address] Olimpia Yu NP Degeneration of intervertebral disc of lumbosacral region; Primary osteoarthritis involving multiple joints; Spinal stenosis of thoracolumbar region Social History Tobacco Use Types Packs/Day Years [...] on file documented as of this encounter Miscellaneous Notes * Telephone Encounter - Cherelle Burger MA - 08/08/2024 11:25 AM EST Text Admissions Clerk Hi, my name is Mercedes Isidoro. More phone number [phone]. I usually go into my chart to reach torequest medicine if I could not get into it today. So I just wanted to request a refill for my Oxy code on. Thank you and have a good day. * Telephone Encounter - Olimpia Yu NP - 07/28/2024 8:23 AM EST Pt has appt on 08/01/2023. Refill at that time. documented in this encounter Plan of Treatment Not on file documented as of this encounter Visit Diagnoses Diagnosis Degeneration of intervertebral disc of lumbosacral region Primary osteoarthritis involving multiple joints Spinal stenosis of thoracolumbar region documented in this encounter Care Teams Bleach Supervisor Relationship Specialty Start Date End Date Aiden Carrillo MD PCP - General Family Medicine 07/19/24 Forest Godoy DO [address] [place] [address] PCP - [facility] 08/06/24 07/08/87 Olimpia Yu NP Nurse Practitioner Family Medicine 01/07/24 Olimpia Yu Nurse Practitioner 03/26/24 documented as of this encounter
--- OUTSIDE RECORDS SUMMARY | 2025-02-16 12:36 | XMS_ITS | Clinical Summary ---
Author Organization [facility] Address [address] [place] [address] Care Team Providers Care Reception Agent Name Role Phone Olimpia Yu PATROL POLICE LIEUTENANT Unavailable [phone] Aiden Carrillo MD Primary Care Provider [phone] Forest Godoy DO Unavailable Allergies No known active allergies Medications diphenhydrAMINE 12.5 MG/5ML elixir 20 mL, aluminum-magnesi um hydroxide-simeth icone 400-400-40 MG/5ML suspension 20 mL, lidocaine 2 % solution 20 mL Swish and spit 15 mL every 4 (four) hours if needed for mucositis Active albuterol HFA 90 mcg/act inhalerIndicatio ns:Asthma,Chroni c Obstructive Pulmonary Disease,Pulmonar y Emphysema Inhale 2 puffs every 4 (four) hours if needed for wheezing or shortness of breath 18 g 3 Active liothyronine (Cytomel) 5 MCG tabletIndication s: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 Take 1 tablet (5 mcg) by mouth Daily 30 tablet 11 024 2024 Active pantoprazole (Protonix) 40 MG EC tabletIndication s:Hiatal hernia with GERD and esophagitis Take 1 tablet (40 mg) by mouth 1 (one) time each day at the same time 90 tablet Active Additional Information Patient taking differently:40 mg OralDaily PRN, heart burn, Reported on 10/27/2024 semaglutide (Ozempic) 2 MG/1.5ML solution pen-injectorIndi cations:Morbid obesity (CMS-HCC) Inject 1 mg under the skin 1 (one) time per week 1.5 mL 11 Active pregabalin (Lyrica) 75 MG capsuleIndicatio ns:Fibromyalgia Syndrome,Neuropa thic Pain Take 1 capsule (75 mg) by mouth in the morning and 1 capsule (75 mg) before bedtime. 60 capsule 2 Active tiZANidine (Zanaflex) 2 MG capsuleIndicatio ns:Spinal stenosis of thoracolumbar region Take 1 capsule (2 mg) by mouth every 8 (eight) hours if needed for muscle spasms 90 capsule 3 Active valACYclovir (Valtrex) 500 MG tabletIndication s:Herpes zoster without complication Take 1 tablet (500 mg) by mouth Daily \ 30 tablet 2 025 2024 Active SEMAGLUTIDE-WEIG HT MANAGEMENT SC INJECT 20 UNITS SUBCUTANEOUSLY ONCE WEEKLY Active levothyroxine (Synthroid, Levoxyl) 137 MCG tabletIndication s:Hypothyroidism , unspecified type Take 137 mcg by mouth Daily 90 tablet 025 2024 Active levothyroxine (Synthroid, Levoxyl) 150 MCG tabletIndication s: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 Take before meals. 30 tablet 11 024 2024 Discontinued(T herapy completed) valACYclovir (Valtrex) 500 MG tabletIndication s:Herpes zoster without complication Take 1 tablet (500 mg) by mouth Daily \ 30 tablet 2 025 2024 Discontinued oxyCODONE-acetam inophen (Percocet) 5-325 MG tabletIndication s:Degeneration of intervertebral disc of lumbosacral region,Primary osteoarthritis involving multiple joints,Spinal stenosis of thoracolumbar region Take 1 tablet by mouth every 8 (eight) hours if needed for severe pain 90 tablet 025 2024 Discontinued(R eorder) oxyCODONE-acetam inophen (Percocet) 5-325 MG tabletIndication s:Degeneration of intervertebral disc of lumbosacral region,Primary osteoarthritis involving multiple joints,Spinal stenosis of thoracolumbar region Take 1 tablet by mouth every 8 (eight) hours if needed for severe pain for up to 15 days 45 tablet 025 2024 Active Problems Problem Noted Date Diagnosed Date Herpes zoster without complication 10/27/2024 Assessment & Plan (10/27/2024 1:37 PM EDT): Saw ID in the past Dr Colunga Used to take famvir D/w M Naderer, will trial valtrex 500mg daily for suppression Encounter for screening mamm ogram for malignant neoplasm of breast 10/27/2024 DDD (degenerative disc disease), cervical 2024 Overview (08/03/2024): MRI C spine; 10/19/2019 mild foraminal narrowing C5-C6 L >R Cigarette nicotine dependence without complicati on 08/01/2024 Assessment & Plan (10/27/2024 7:32 AM EDT): The patient has been advised of the risks of continued smoking: stroke, SC, all forms of cancer, lung disease, and [...] of the risks of continued smoking: stroke, SC, all forms of cancer, lung disease, and [...] 30 DAY SUPPLY ZERO REFILLS CALLED INTO [facility] WITH FAUSTINO BY DETECTIVE AND INTELLIGENCE ANALYST -SCR Rectocele 01/31/2024 Vaginal atrophy 01/31/2024 COPD [...] and 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 Whereas before she could [...] Chronic ongoing. Several MRI's in past @ [facility]- Will request records. Was following Pain Management in [place], [place]; Was prescribed Oxycodone 7.5mg Q8hrs at [...] interested in Wegovy via compounding pharmacy in [facility] for weight loss. Will send in [...] Encounters Date Type Department Care Team Description 01/31/2025 Orders Only [facility] [address] [place] [address] Camilla Recinos NP Spinal stenosis of thoracolumbar region (Primary Dx) 01/30/2025 [facility]ill [facility] [address] [place] [address] Camilla Recinos NP Hypothyroidism, unspecified type (Primary Dx) 01/30/2025 [facility]ill [facility] [address] [facility] [facility] [place] [address] Camilla Recinos NP Degeneration of intervertebral disc of lumbosacral region; Primary osteoarthritis involving multiple joints; Spinal stenosis of thoracolumbar region 01/25/2025 Refill [facility] [address] [place] [address] Camilla Recinos NP Herpes zoster without complication 01/21/2025 Clinisync Result Encounter [facility] External Department Unsolicited Camilla Recinos NP 12/28/2024 [facility]ill [facility] [address] [facility] [place] [address] Camilla Recinos NP Degeneration of intervertebral disc of lumbosacral region; Primary osteoarthritis involving multiple joints; Spinal stenosis of thoracolumbar region 12/01/2024 Refill [facility] [address] [facility] [facility] [place] [address] Camilla Recinos NP Degeneration of intervertebral disc of lumbosacral region; Primary osteoarthritis involving multiple joints; Spinal stenosis of thoracolumbar region 12/01/2024 Telephone [facility] [address] [facility] [place] [phone] Camilla Recinos NP from Last 3 Months Immunizations Immunization Administration Dates Next Due Influenza, High Dose Seasonal, Preservative Free 03/13/2020 Pneumococcal Conjugate PCV 13 03/13/2020 Family History Medical History Relation Name Comments No Known Problems Brother 1 John JENSEN No Known Problems Brother 2 J.K. Unintentio [...] 1.4 43.7 Started: 1979 Smokeless Tobacco: Never Tobacco Cessation:Ready [...] week 10/26/2024 How often do you attend [facility] or moravian services? More than 4 times per year 10/26/2024 Do you belong to any clubs o r organizations such as mandaeism groups, unions, fraternal or athletic groups, or [...] medical care, and heating? Very hard 10/26/2024 [facility]ational Stress Questionnaire Answer Date Recorded [...] any time in the past 12 m [facility], were you homeless or living in a jail (including now)? No 10/26/2024 Comments No Sex [...] 08/01/2024 2:40 PM EST Plan of Treatment Health Maintenance Due Date Last Done Comments CT Colonography 1967 Colonoscopy 1967 Colorectal Cancer Screening 1967 FIT-DNA 1967 FIT 1967 FOBT 1967 Lung Cancer Screening Shared Decision Making 8 Sigmoidoscopy 1967 Pap Smear 1988 Cervical Cancer Screening 1997 HPV/Cotest 1997 Mammogram 2007 Medicare Annual Wellness (AWV) 02/24/2025 02/25/2024 Influenza Vaccine Discontinued 03/13/2020 Procedures Procedure Name Priority Date/Time Associated Diagnosis Comments ALL THYROXINE (T4) FREE Routine 01/21/2025 11:35 AM EDT ALL THYROID STIM HORMONE Routine 01/21/2025 11:35 AM EDT ALL LIPID PROFILE (FASTING) Routine 01/21/2025 11:35 AM EDT [facility] CMP (CMP) (FOR REMOTE [facility] USE) Routine 01/21/2025 11:35 AM EDT ALL CBC WITH AUTO DIFF Routine 01/21/2025 11:35 AM EDT TBH UA (CLEAN/CATCH) MICROSCOPIC IF INDICATE Routine 01/21/2025 11:26 AM EDT from Last 3 Months Results * (ABNORMAL) [facility] CMP (CMP) (FOR REMOTE [facility] USE) (01/21/2025 11:35 AM EDT) SODIUM 137 136 - 145 mmol/L TBH POTASSIUM 4.0 3.5 - 5.1 mmol/L TBH CHLORIDE 104 98 - 107 mmol/L TBH CARBON DIOXIDE 22.8 21.0 - 32.0 mmol/L TBH ANION GAP 14.2 TBH GLUCOSE 96 74 - 106 mg/dL TBH BLOOD UREA NITROGEN 7.0 7.0 - 18.0 mg/dL TBH CREATININE 0.88 0.55 - 1.02 mg/dL TBH TBH EGFR-AF TURKMEN >60 >=60 mL/min/1. 73m 2 TBH TBH EGFR-NON AF TURKMEN >60 >=60 mL/min/1. 73m 2 TBH BUN CREATININE RATIO 8.0 TBH CALCIUM 9.4 8.5 - 10.1 mg/dL TBH BILIRUBIN TOTAL 0.5 0.2 - 1.0 mg/dL TBH ASPARTATE AMINO TRANSFERASE 18 15 - 37 U/L TBH ALANINE AMINOTRANSFERASE 25 14 - 59 U/L TBH ALKALINE PHOSPHATASE 83 46 - 116 U/L TBH TOTAL PROTEIN 8.3(H) 6.4 - 8.2 g/dL TBH ALBUMIN LEVEL 3.6 3.4 - 5.0 g/dL TBH GLOBULIN 4.7 g/dL TBH ALBUMIN GLOBULIN RATIO 0.8 TBH 01/21/2025 11:3 5 AM EDT 01/21/2025 11:36 AM EDT Narrative CLINISYNC - 01/21/2025 12:13 PM EDT us Camilla Delgadoairam PATROL POLICE LIEUTENANT CLINISYNC Final Result Performing Organization Address [facility]/ZIP Co de Phone Number CLINISYMO TB * (ABNORMAL) ALL THYROXINE (T4) FREE (01/21/2025 11:35 AM EDT) FREE T4 1.77(H) 0.76 - 1.46 ng/dL TBH 01/21/2025 11:3 5 AM EDT 01/21/2025 11:36 AM EDT Narrative CLINISYNC - 01/21/2025 12:22 PM EDT Camilla Delgadoairam MALDONADO CLINISYNC Final Result Performing Organization Address [facility] de Phone Number CLINISYMO TB * ALL THYROID STIM HORMONE (01/21/2025 11:35 AM EDT) THYROID STIMULATING HORMONE 0.443 0.358 - 3.740 uIU/mL TBH 01/21/2025 11:3 5 AM EDT 01/21/2025 11:36 AM EDT Narrative CLINISYNC - 01/21/2025 12:13 PM EDT Camilla Recinos PATROL POLICE LIEUTENANT CLINISYNC Final Result Performing Organization Address [facility] de Phone Number CLINISYMO TB * (ABNORMAL) ALL LIPID PROFILE (FASTING) (01/21/2025 11:35 AM EDT) TRIGLYCERIDES 99 <=150 mg/dL TB CHOLESTEROL 218(H) <=200 mg/dL TB HDL CHOLESTEROL 60 40 - 60 mg/dL TB Comment: > or =60 mg/dl - LOW CARDIOVASCULAR RISK <40 mg/dl - HIGH CARDIOVASCULAR RISK LDL CHOLESTEROL CALCULATED 139.0 mg/dL TB Comment: <100 mg/dl OPTIMAL 100-129 mg/dl NEAR OR ABOVE OPTIMAL 130-159 mg/dl BORDERLINE HIGH 160-189 mg/dl HIGH >190 mg/dl VERY HIGH VLDL CHOLESTEROL 19.8 mg/dL TB CHOL HDL RATIO 3.6 TB Comment: 3.3 - 4.4 LOW RISK 4.4 - 7.1 AVERAGE RISK 7.1 - 11.0 MODERATE RISK >11.0 HIGH RISK 01/21/2025 11:3 5 AM EDT 01/21/2025 11:36 AM EDT Narrative GIGI - 01/21/2025 12:13 PM EDT us Camilla Recinos NP CLINISYNC Final Result CLINISYNC TB * (ABNORMAL) ALL CBC WITH AUTO DIFF (01/21/2025 11:35 AM EDT) TBH WBC 11.3(H) 4.0 - 11.0 10 3/uL TBH TBH RBC 5.23 4.20 - 5.40 10 6/uL TBH TBH HGB 17.0(H) 12.0 - 16.0 g/dL TBH TBH HCT 48.2(H) 36.0 - 48.0 % TBH TBH MCV 92.2 81.0 - 99.0 fL TBH TBH MCH 32.5 26.7 - 34.0 pg TBH TBH MCHC 35.3(H) 29.9 - 35.2 g/dL TBH TBH RDW 12.7 11.0 - 15.0 % TBH TBH PLT 319 150 - 450 10 3/uL TBH TBH MPV 9.3(L) 9.5 - 13.5 fL TBH NEUTROPHILS PERCENT AUTO 65.0 43.0 - 75.0 % TBH LYMPHOCYTES PERCENT AUTO 25.0 20.5 - 60.0 % TBH MONOCYTES PERCENT AUTO 8.7 1.7 - 12.0 % TBH TBH EO % 0.6(L) 0.9 - 7.0 % TBH BASOPHILS PERCENT AUTO 0.4 0.2 - 2.0 % TBH IMMATURE GRANULOCYTES PCT AUTO 0.3 0.0 - 0.5 % TBH NEUTROPHILS ABSOLUTE AUTO 7.4(H) 1.4 - 6.5 10 3/uL TBH LYMPHOCYTES ABSOLUTE AUTO 2.8 1.2 - 3.8 10 3/uL TBH MONOCYTES ABSOLUTE AUTO 1.0(H) 0.3 - 0.8 10 3/uL TBH TBH EO # 0.1 0.0 - 0.7 10 3/uL TBH BASOPHILS ABSOLUTE AUTO 0.0 0.0 - 0.1 10 3/uL TBH IMMATURE GRANULOCYTES ABS AUTO 0.03 0.00 - 0.03 10 3/uL TBH 01/21/2025 11:3 5 AM EDT 01/21/2025 11:36 AM EDT Narrative CLINISYNC - 01/21/2025 11:46 AM EDT us Camilla Recinos NP CLINISYNC Final Result CLINISYNC TBH * (ABNORMAL) TBH UA (CLEAN/CATCH) MICROSCOPIC IF INDICATE (01/21/2025 11:26 AM EDT) COLOR URINE YELLOW YELLOW TBH CLARITY URINE CLEAR CLEAR TBH SPECIFIC GRAVITY URINE >=1.030(A) 1.005 - 1.025 TBH PH URINE 5.0 5.0 - 9.0 TBH PROTEIN URINE TRACE NEG/TRACE mg/dL TBH GLUCOSE URINE UA NEGATIVE NEGATIVE mg/dL TBH BILIRUBIN URINE MODERATE(A) NEGATIVE TBH KETONES URINE TRACE(A) NEGATIVE mg/dL TBH BLOOD URINE NEGATIVE NEGATIVE TBH NITRITE URINE NEGATIVE NEGATIVE TBH UROBILINOGEN URINE 1.0 0.2 - 1.0 EU/dL TBH LEUKOCYTE ESTERASE URINE NEGATIVE NEGATIVE TBH URINE MICROSCOPIC INDICATED NO TBH 01/21/2025 11:2 6 AM EDT 01/21/2025 11:36 AM EDT Narrative CLINISYNC - 01/21/2025 11:46 AM EDT us Camilla Recinos NP CLINISYNC Final Result CLINISYNC TB from Last 3 Months [facility] Care Teams Reception Agent Relationship Specialty Start Date End Date Aiden Carrillo MD PCP - General Family Medicine 07/19/24 Forest Godoy DO [address] [facility] [address] [address] PCP - [facility] 08/06/24 07/08/87 Olimpia Yu NP Nurse Practitioner Family Medicine 01/07/24 Olimpia Yu Nurse Practitioner 03/26/24
--- OUTSIDE RECORDS SUMMARY | 2025-02-16 12:36 | XMS_ITS | Continuity of Care Document ---
Author Organization [facility] Address [address] [place] [address] Phone [phone]
--- OUTSIDE RECORDS SUMMARY | 2025-02-16 12:36 | XMS_ITS | Encounter Summary ---
Author Organization [facility] Address [address] [place] [address] Care Team Providers Care Nursing Coordinator Name Role Phone Olimpia Yu LIVESTOCK COMMISSION AGENT Unavailable [phone] Aiden Carrillo MD Primary Care Provider [phone] Forest Godoy DO Unavailable [phone] Encounter Details Date Type Department Care Team (Late st Contact Info) Description 04/18/2024 Orders Only [facility] [address] [place] [address] Olimpia Yu NP Social History Tobacco Use [...] on filedocumented in this encounter Care Teams Nursing Coordinator Relationship Specialty Start Date End Date Aiden Carrillo MD PCP - General Family Medicine 07/19/24 Forest Godoy DO [address] [facility] [address] [place] [address] PCP - [facility] 08/06/24 07/08/87 Olimpia Yu NP Nurse Practitioner Family Medicine 01/07/24 Olimpia Yu Nurse Practitioner 03/26/24 documented as of this encounter
--- OUTSIDE RECORDS SUMMARY | 2025-02-16 12:47 | XMS_ITS | CCD ---
Author Organization [facility] Care Team Providers Care Real Estate Specialist Name Role Phone Lebron Hogan Admitting Unavailable [...] Primary Care Provider Aimee MALDONADO, Olimpia Unavailable [phone] Aiden Santamaria MD Primary Care Provider [phone] Aimee MALDONADO, Olimpia Unavailable CAMILLA RECINOS Attending Unavailable CAMILLA RECINOS Attending Unavailable OLIMPIA YU Referring UnavailForest Pitts DO Unavailable Camilla Recinos Primary Care Provider Camilla Recinos Attending Provider [phone] Medications Current Medications Medication Drug Class(es) Dates Sig (Normalized) Sig (Original) acetaminophen 325 mg / oxyCODONE hydrochloride 5 mg oral tablet (20 sources) Opioid Agonist Start: 03-21-2024 End: 02-14-2025 take 1 tablet by mouth every eight hours Oxycodone-Acetami nophen 5-325 mg tablet Active 1 TAB PO Every 8 hours February 13, 2025 12:00am Complies with drug therapy Start: 02-21-2024 End: 03-18-2024 take 1 tablet [...] needed for severe pain 02/21/2024 Discontinued (Reorder) [id number] 200 actuat albuterol 0.09 mg/actuat metered dose inhaler (20 sources) beta2-Adrenergic Agonist Start: 02-21-2024 End: 02-21-2024 take 2 puff(s) by inhalation every four hours for wheezing albuterol HFA 90 mcg/act inhaler Indications: Asthma , Chronic Obstructive Pulmonary Disease , Pulmonary Emphysema Inhale 2 puffs every 4 (four) hours if needed for wheezing or shortness of breath 18 g 3 02/21/2024 Active diphenhydrAMINE 12.5 MG/5ML elixir 20 mL, aluminum-magnesium hydroxide-simethico ne 400-400-40 MG/5ML suspension 20 mL, lidocaine 2 [...] 0.025 mg/actuat dry powder inhaler (20 sources) Anticholinergic, Corticosteroid, beta2-Adrenergic Agonist Start: 02-21-2024 End: 07-27-2024 take 1 puff(s) by inhalation once daily Fluticasone-Umecli din-Vilant (Trelegy Ellipta) 100-62.5-25 MCG/ACT aerosol powder Indications: Pulmonary emphysema, unspecified emphysema type (CMS/HCC) Inhale 1 puff Daily 60 each 2 07/27/2024 Active levothyroxine sodium 0.137 mg oral tablet (20 sources) l-Thyroxine Start: 01-30-2025 End: 04-30-2025 take 1 tablet by mouth once daily Levothyroxine 137 mcg tablet Active 137 MCG PO Daily February 13, 2025 12:00am Complies with drug therapy Start: 03-23-2024 End: 05-16-2025 take 1 tablet by mouth before mealtime levothyroxine (Synthroid, Levoxyl) 150 MCG tablet 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 Take before meals. 30 tablet 11 05/16/2024 01/30/2025 Discontinued (Therapy completed) Start: 02-12-2024 End: 02-11-2025 take 1 tablet by mouth before mealtime levothyroxine (Synthroid) 50 MCG tablet Indications: 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) Take 1 tablet (50 mcg) by mouth in the morning. Take before meals. 30 tablet 3 02/12/2024 02/11/2025 Active Start: 09-09-2023 End: 02-13-2025 take 1 tablet by mouth once daily in the morning Levothyroxine 175 mcg tablet Discontinued 1 TAB PO Daily September 09, 2023 12:00am February 13, 2025 8:27am Free[employer]Si tablet in the morning on an empty stomach Orally Once a day; Note: Source Status: Refill; Qty: 90 Tablet; Provider: Prashanth Christensen liothyronine sodium 0.005 mg oral tablet (20 sources) l-Triiodothyronine Start: 03-23-2024 End: 05-16-2025 take 1 tablet by mouth once daily Liothyronine 5 mcg tablet Active 5 MCG PO Daily February 13, 2025 12:00am Complies with drug therapy liothyronine (Cy tomel) 50 MCG tablet 1 (one) time each day at the same time Active pregabalin 75 mg oral capsule (20 sources) Start: 02-13-2025 take 1 capsule by mouth every twelve hours Pregabalin 75 mg capsule Active 75 MG PO Every 12 hours February 13, 2025 12:00am Complies with drug therapy Start: 10-27-2024 take 1 capsule by [facility] in the morning pregabalin (Lyrica) 75 MG [...] mL 1 03/26/2024 05/16/2024 Discontinued (Dose adjustment) Semaglutide 1 mg/0.2 mL syringe (1 source) Start: 02-13-2025 Semaglutide 1 mg/0.2 mL syringe Active MG SUBCUT February 13, 2025 12:00am Complies with drug therapy SEMAGLUTIDE-WEIGH T MANAGEMENT SC (3 sources) Start: 01-25-2025 inject 20 [IU] by subcutaneous injection every week SEMAGLUTIDE-WEIGHT MANAGEMENT SC INJECT 20 UNITS SUBCUTANEOUSLY ONCE WEEKLY 01/25/2025 Active tiZANidine 2 mg oral capsule (20 sources) Central alpha-2 Adrenergic Agonist Start: 10-27-2024 End: 01-25-2025 take 1 capsule by mouth every eight hours for muscle spasms tiZANidine (Zanaflex) 2 MG capsule Indications: Spinal stenosis of thoracolumbar region Take 1 capsule (2 mg) by mouth every 8 (eight) hours if needed for muscle spasms 90 capsule 3 10/27/2024 Active Start: 05-16-2024 End: 09-13-2024 take 1 [...] needed for muscle spasms 05/13/2024 Discontinued (Reorder) valACYclovir 500 mg oral tablet (5 sources) Herpesvirus Nucleoside Analog DNA Polymerase Inhibitor, Herpes Simplex Virus Nucleoside Analog DNA Polymerase Inhibitor, Herpes Zoster Virus Nucleoside Analog DNA Polymerase Inhibitor Start: 01-25-2025 End: 02-24-2025 take 1 tablet by mouth once daily Valacyclovir 500 mg tablet Active 500 MG PO Daily February 13, 2025 12:00am Complies with drug therapy Completed/Discontinued Medications Medication Drug Class(es) Dates Sig (Normalized) Sig (Original) pantoprazole 40 mg delayed release oral tablet (20 sources) Proton Pump Inhibitor Start: 02-13-2025 End: 02-13-2025 take 1 tablet by mouth once daily Pantoprazole 40 mg tablet,delayed release (DR/EC) Discontinued 40 MG PO Daily February 13, 2025 12:00am February 13, 2025 2:06pm Start: 05-16-2024 take 1 tablet by micaela once daily pantoprazole (Protonix) 40 MG EC [...] time 90 tablet 03/26/2024 05/13/2024 Discontinued (Reorder) predniSONE 20 mg oral tablet [...] obstruction or gangrene] Onset: 01-31-2024 01-31-2024 Episodic Anxiety disorders (20 sources) Anxiety; Translations: [Anxiety [...] 03-18-2024 Chronic Other aftercare (1 source) Other prison (current) drug therapy; Translations: [OTH RESIDENTIAL CURRENT DRUG THERAPY] Onset: 03-26-2020 Episodic Other bone disease and musculoskeletal deformities (20 sources) Postmenopausal osteopenia; Translations: [Other specified disorders of bone density and structure, unspecified site] Onset: 01-31-2024 01-31-2024 Episodic Other connective tissue disease (20 sources) Myositis; Translations: [Myositis, unspecified] Onset: 07-29-2012 01-31-2024 Episodic Other connective tissue disease (2 sources) Fibromyalgia; Translations: [Fibromyalgia] 02-13-2025 Episodic Other gastrointestinal disorders (20 sources) Irritable [...] to excess calories] Onset: 07-29-2012 01-31-2024 Chronic Poisoning by nonmedicinal substances (1 source) [...] REGIMEN] Onset: 03-26-2020 Episodic Residual codes; unclassified (20 sources) Family history of blood coagulation disorder; Translations: [Family history of diseases of the blood and blood-forming organs and certain disorders involving the immune mechanism] Onset: 01-31-2024 01-31-2024 Episodic Residual codes; unclassified (1 source) Sleep apnea, unspecified; Translations: [SLEEP APNEA UNSPECIFIED] Onset: 05-13-2019 Spondylosis; intervertebral disc disorders; other back problems (20 sources) Sacroiliitis, not elsewhere classified; Translations: [Spondylosis without myelopathy or radiculopathy, thoracic region] Onset: 07-29-2012 03-18-2024 Chronic Spondylosis; intervertebral disc disorders; other back problems (20 sources) Low back pain; Translations: [Pain in thoracic spine] Onset: 07-29-2012 03-18-2024 Episodic Substance-related disorders (19 sources) Nicotine dependence, cigarettes, uncomplicated; Translations: [Tobacco [...] Other Problems Problem Classification Problem Date Documented Date Episodic/Chronic Nausea and vomiting (20 sources) Nausea; Translations: [Nausea] Onset: 02-17-2024 02-17-2024 Episodic Other connective tissue disease (4 sources) [...] [PAIN IN RIGHT SHOULDER] Onset: 06-28-2019 Episodic Other screening for suspected conditions (not mental disorders or infectious disease) (20 sources) Patient encounter status; Translations: [Encounter for other screening for malignant neoplasm of breast] Onset: 02-27-2024 Resolved: 10-27-2024 02-27-2024 Episodic Residual codes; unclassified (1 source) Tobacco use; Translations: [TOBACCO USE] Onset: 05-13-2019 Episodic Residual codes; unclassified (20 sources) Tobacco user; Translations: [Tobacco use] Onset: 01-31-2024 Resolved: 08-01-2024 01-31-2024 Episodic Unclassified (1 source) Spinal stenosis of thoracolumbar region 01-31-2025 Results Test Name Value Interpretation Reference Range Facility ALL CBC WITH AUTO DIFFon BASOPHILS ABSOLUTE AUTO 0 [facility] Basophils/100 WBC (Bld) 0.4 % 0.2 - 2.0 % [facility] Eosinophils/100 WBC (Bld) 0.6 % Low 0.9 - 7.0 % [facility] Erythrocyte distribution width (RBC) [Ratio] 12.7 % 11.0 - 15.0 % [facility] Hematocrit (Bld) [Volume fraction] 48.2 % High 36.0 - 48.0 % [facility] Hemoglobin (Bld) [Mass/Vol] 17 g/dL High 12.0 - 16.0 g/dL [facility] IMMATURE GRANULOCYTES ABS AUTO 0.03 [facility] Immature granulocytes/100 WBC (Bld) 0.3 % 0.0 - 0.5 % [facility] LYMPHOCYTES ABSOLUTE AUTO 2.8 [facility] Lymphocytes/100 WBC (Bld) 25 % 20.5 - 60.0 % [facility] MCH (RBC) [Entitic mass] 32.5 pg 26.7 - 34.0 pg [facility] MCHC (RBC) [Mass/Vol] 35.3 g/dL High 29.9 - 35.2 g/dL [facility] MCV (RBC) [Entitic vol] 92.2 fL 81.0 - 99.0 fL [facility] MONOCYTES ABSOLUTE AUTO 1 High [facility] Monocytes/100 WBC (Bld) 8.7 % 1.7 - 12.0 % [facility] NEUTROPHILS ABSOLUTE AUTO 7.4 High [facility] Neutrophils/100 WBC (Bld) 65 % 43.0 - 75.0 % [facility] Platelet mean volume (Bld) [Entitic vol] 9.3 fL Low 9.5 - 13.5 fL [facility] EO # 0.1 [facility] PLT 319 [facility] TB RBC 5.23 [facility] WBC 11.3 High [facility] No Panel Informationon 01-21 Interpretation and review of laboratory results Abnormal [facility] UA (CLEAN/CATCH) MICROSC OPIC IF INDICATEon 01-21-2025 BILIRUBIN URINE MODERATE Abnormal NEGATIVE [facility] BLOOD URINE Negative NEGATIVE [facility] Clarity (U) CLEAR CLEAR [facility] Color (U) YELLOW YELLOW [facility] GLUCOSE URINE UA Negative NEGATIVE mg/dL [facility] Ketones Ql (U) TRACE Abnormal NEGATIVE mg/dL [facility] Leukocyte esterase Test strip Ql (U) Negative NEGATIVE [facility] NITRITE URINE Negative NEGATIVE [facility] pH (U) 5.0 [pH] 5.0 - 9.0 [facility] PROTEIN URINE TRACE NEG/TRACE mg/dL [facility] SPECIFIC GRAVITY URINE >=1.030 Abnormal 1.005 - 1.025 [facility] URINE MICROSCOPIC INDICATED NO [facility] UROBILINOGEN URINE 1.0 EU/dL 0.2 - 1.0 EU/dL [facility] TB MICROALB CREAT RATIO RAN DOMon 03-21-2024 CREATININE URINE RANDOM 215.9 mg/dL 20.00 - 300.00 mg/dL [facility] MICROALBUMIN URINE RANDOM <1.3 NINF - 30.0 mg/dL [facility] e MLR HEMOGLOBIN A1Con 024 Glucose [Mass/Vol] 105 mg/dL [facility]althcare HbA1c (Bld) [Mass fraction] 5.3 % 4.5 - 6.2 % [facility] Comment on above: ADA RECOMMENDED LIMI T 4.0 - 6.0 ADA THERAPEUTIC TARGET < 7.0 ACTION SUGGESTED > 7.[address] [facility] e CBC AUTO DIFFon 03-15-2020 Basophils (Bld) [#/Vol] 0.0 103/ul Normal 0.0-0.1 [facility] Comment on above: Performed By: #### C BC ####[facility] [address] [place], [place] [address]Iyqdqm Andie Basophils/100 WBC (Bld) 0.1 % Critically low 0.2-2.0 [facility] Comment on above: Performed By: #### C BC ####[facility] [address] [place], [place] [address]Bxusla Andie Eosinophils (Bld) [#/Vol] 0.0 103/ul Normal 0.0-0.7 [facility] Comment on above: Performed By: #### C BC ####[facility] [address] [place], [place] [address]Cskglm Andie Eosinophils/100 WBC (Bld) 0.0 % Critically low 0.9-7.0 [facility] Comment on above: Performed By: #### C BC ####[facility] [address] [place], [place] [address]Jzdyen Andie Erythrocyte distribution width (RBC) [Ratio] 13.4 % Normal 11.0-15.0 [facility] Comment on above: Performed By: #### C BC ####[facility] [address] [place] [address]Gcyfxo Andie Hematocrit (Bld) [Volume fraction] 42.2 % Normal 36.0-48.0 [facility] Comment on above: Performed By: #### C BC ####[facility] [address] [place] [address]Letzdv Andie Hemoglobin (Bld) [Mass/Vol] 13.9 g/dL Normal 12.0-16.0 [facility] Comment on above: Performed By: #### C BC ####[facility] [address] [place] [address]Ejwedj Andie IG # 0.13 10e3/ul Critically high 0.00-0.03 [facility] Comment on above: Performed By: #### C BC ####[facility] [address] [place], [place] [phone] Andie IG % 0.9 % Critically high 0.0-0.5 [facility] Comment on above: Performed By: #### C BC ####[facility] [address] [place], [place] [phone] Andie Lymphocytes (Bld) [#/Vol] 0.9 103/ul Critically low 1.2-3.8 [facility] Comment on above: Performed By: #### C BC ####[facility] [address] [place], [place] [address]Gerken Andie Lymphocytes/100 WBC (Bld) 6.4 % Critically low 20.5-60.0 [facility] Comment on above: Performed By: #### C BC ####[facility] [address] [place] [address]Ysiwxm Andie MANUAL DIFF REQ NO Normal [facility] Comment on above: Performed By: #### C BC ####[facility] [address] [place], [place] [address]Ndbjpr Andie MCH (RBC) [Entitic mass] 32.0 pg Normal 26.7-34.0 [facility] Comment on above: Performed By: #### C BC ####[facility] [address] [place], [place] [address]Fcxcry Andie MCHC (RBC) [Mass/Vol] 32.9 g/dL Normal 29.9-35.2 [facility] Comment on above: Performed By: #### C BC ####[facility] [address] [place], [place] [address]Jemnju Andie MCV (RBC) [Entitic vol] 97.2 fL Normal 81.0-99.0 [facility] Comment on above: Performed By: #### C BC ####[facility] [address] [place] [address]Xwvgdd Andie Monocytes (Bld) [#/Vol] 0.7 103/ul Normal 0.3-0.8 [facility] Comment on above: Performed By: #### C BC ####[facility] [address] [place] [address]Lqgcar Andie Monocytes/100 WBC (Bld) 4.7 % Normal 1.7-12.0 [facility] Comment on above: Performed By: #### C BC ####[facility] [address] [place] [address]Fwmtjn Andie Neutrophils (Bld) [#/Vol] 13.0 103/ul Critically high 1.4-6.5 [facility] Comment on above: Performed By: #### C BC ####[facility] [address] [place] [address]Fqufbz Andie Neutrophils/100 WBC (Bld) 87.9 % Critically high 43.0-75.0 [facility] Comment on above: Performed By: #### C BC ####[facility] [address] [place] [address]Bosphp Andie Platelet mean volume (Bld) [Entitic vol] 8.8 fL Critically low 9.5-13.5 [facility] Comment on above: Performed By: #### C BC ####[facility] [address] Andie Platelets (Bld) [#/Vol] 286 103/ul Normal 150-450 [facility] Comment on above: Performed By: #### C BC ####[facility] [address] [place] [address] Andie RBC (Bld) [#/Vol] 4.34 106/ul Normal 4.20-5.40 [facility] Comment on above: Performed By: #### C BC ####[facility] [address] [place] [address] Andie WBC (Bld) [#/Vol] 14.8 103/ul Critically high 4.0-11.0 [facility] Comment on above: Performed By: #### C BC ####[facility] [address] [place] [address] Andie ER URINE PROFILEon 0 Bilirubin [Mass/Vol] Negative Normal NEGATIVE [facility] Comment on above: Performed By: #### E RUR ####[facility] [address] [place] [address] Andie BLOOD Negative Normal NEGATIVE [facility] Comment on above: Performed By: #### E RUR ####[facility] [address] [place] [address] Andie Clarity (U) CLEAR Normal [facility] Comment on above: Performed By: #### E RUR ####[facility] [address] [place] [address] Andie Color (U) YELLOW Normal YELLOW [facility] Comment on above: Performed By: #### E RUR ####[facility] [address] [place] [address] Andie ERUAHD A micrscopic examination will be performed if indicated. Normal [facility] Comment on above: Performed By: #### E RUR ####[facility] [address] [place] [phone] Andie Glucose [Mass/Vol] Negative Normal NEGATIVE [facility] Comment on above: Performed By: #### E RUR ####[facility] [address] [place], [place] [phone] Andie Ketones Ql (U) Negative Normal NEGATIVE [facility] Comment on above: Performed By: #### E RUR ####[facility] [address] [place], [place] [address]Gerken Andie Nitrite Ql (U) Negative Normal NEGATIVE [facility] Comment on above: Performed By: #### E RUR ####[facility] [address] [place] [address] Andie pH (Bld) 5.0 Normal 5-9 [facility] Comment on above: Performed By: #### E RUR ####[facility] [address] [place] [address] Andie Protein (U) [Mass/Vol] Negative Normal [facility] Comment on above: Performed By: #### E RUR ####[facility] [address] [place], [place] [address]Gerken Andie SPEC GRAVITY 1.020 Normal 1.005-<=1.025 [facility] Comment on above: Performed By: #### E RUR ####[facility] [address] [place] [address] Andie UR MICRO IND NOT INDICATED Normal [facility] Comment on above: Performed By: #### E RUR ####[facility] [address] [place], [place] [address]Gerken Andie Urobilinogen Qn (U) 0.2 EU/dl Normal [facility] Comment on above: Performed By: #### E RUR ####[facility] [address] [place], [place] [address]Gerken Andie WBC (Bld) [#/Vol] Negative Normal NEGATIVE [facility] Comment on above: Performed By: #### E RUR ####[facility] [address] [place], [place] [address]Iclmhg Andie BNPon 03-13-2020 Natriuretic peptide B (Bld) [Mass/Vol] 100.0 pg/mL Normal <=900.0 [facility] Comment on above: Performed By: #### B DESTINATION SIGN REPAIRER, TSH, TROP, CMP #### [facility] [address] [place] [address] Amanda Andie CBC AUTO DIFFon 03-13-2020 Basophils (Bld) [#/Vol] 0.1 103/ul Normal 0.0-0.1 [facility] Comment on above: Performed By: #### C BC #### [facility] [address] [place], [place] [phone] Amanda Andie Basophils/100 WBC (Bld) 0.3 % Normal 0.2-2.0 [facility] Comment on above: Performed By: #### C BC #### [facility] [address] [place] [address] Amanda Andie Eosinophils (Bld) [#/Vol] 0.1 103/ul Normal 0.0-0.7 [facility] Comment on above: Performed By: #### C BC #### [facility] [address] [place], [place] [phone] Amanda Andie Eosinophils/100 WBC (Bld) 0.6 % Critically low 0.9-7.0 [facility] Comment on above: Performed By: #### C BC #### [facility] [address] [place], [place] [phone] Amanda Andie Erythrocyte distribution width (RBC) [Ratio] 13.3 % Normal 11.0-15.0 [facility] Comment on above: Performed By: #### C BC #### [facility] [address] [place], [place] [phone] Amanda Andie Hematocrit (Bld) [Volume fraction] 47.9 % Normal 36.0-48.0 [facility] Comment on above: Performed By: #### C BC #### [facility] [address] [place], [place] [phone] Amanda Andie Hemoglobin (Bld) [Mass/Vol] 16.0 g/dL Normal 12.0-16.0 [facility] Comment on above: Performed By: #### C BC #### [facility] [address] [phone] Amandasusan Chaves IG # 0.12 10e3/ul Critically high 0.00-0.03 [facility] Comment on above: Performed By: #### C BC #### [facility] [address] [place], [place] [phone] Amanda Andie IG % 0.7 % Critically high 0.0-0.5 [facility] Comment on above: Performed By: #### C BC #### [facility] [address] [place], [place] [phone] Amanda Andie Lymphocytes (Bld) [#/Vol] 3.8 103/ul Normal 1.2-3.8 [facility] Comment on above: Performed By: #### C BC #### [facility] [address] [place] [address] Amanda Andie Lymphocytes/100 WBC (Bld) 21.9 % Normal 20.5-60.0 [facility] Comment on above: Performed By: #### C BC #### [facility] [address] [place], [place] [phone] Amandasusan Chaves MANUAL DIFF REQ NO Normal [facility] Comment on above: Performed By: #### C BC #### [facility] [address] [place], [place] [phone] Amandasusan Frenchen MCH (RBC) [Entitic mass] 32.9 pg Normal 26.7-34.0 [facility] Comment on above: Performed By: #### C BC #### [facility] [address] [place] [address] Amanda Andie MCHC (RBC) [Mass/Vol] 33.4 g/dL Normal 29.9-35.2 [facility] Comment on above: Performed By: #### C BC #### [facility] [address] [place], [place] [phone] Amanda Andie MCV (RBC) [Entitic vol] 98.4 fL Normal 81.0-99.0 [facility] Comment on above: Performed By: #### C BC #### [facility] [address] [place], [place] [address] Amanda Andie Monocytes (Bld) [#/Vol] 1.2 103/ul Critically high 0.3-0.8 [facility] Comment on above: Performed By: #### C BC #### [facility] [address] [place], [place] [address] Amanda Andie Monocytes/100 WBC (Bld) 6.6 % Normal 1.7-12.0 [facility] Comment on above: Performed By: #### C BC #### [facility] [address] [place] [address] Amanda Andie Neutrophils (Bld) [#/Vol] 12.2 103/ul Critically high 1.4-6.5 [facility] Comment on above: Performed By: #### C BC #### [facility] [address] [place], [place] [phone] Amanda Andie Neutrophils/100 WBC (Bld) 69.9 % Normal 43.0-75.0 [facility] Comment on above: Performed By: #### C BC #### [facility] [address] [place] [address] Amanda Andie Platelet mean volume (Bld) [Entitic vol] 8.9 fL Critically low 9.5-13.5 [facility] Comment on above: Performed By: #### C BC #### [facility] [address] [place] [address] Amanda Andie Platelets (Bld) [#/Vol] 367 103/ul Normal 150-450 [facility] Comment on above: Performed By: #### C BC #### [facility] [address] [place] [address] Amanda Andie RBC (Bld) [#/Vol] 4.87 106/ul Normal 4.20-5.40 [facility] Comment on above: Performed By: #### C BC #### [facility] [address] [place] [address] Amanda Andie WBC (Bld) [#/Vol] 17.5 103/ul Critically high 4.0-11.0 T [facility] Comment on above: Performed By: #### C #### [facility] [address] [place], [place] [address] Amanda Chaves CTA CHEST WO W CONon [...] NANETTE COTO Date: 2020-03-13 21:48 Normal [facility] LACTATE/LACTIC ACIDon 2019 Lactate [Moles/Vol] 1.3 mmol/L Normal 0.7-2.0 [facility] Comment on above: Performed By: #### L ACT #### [facility] [address] [place], [place] [address] Amanda Andie PH VENOUS BLOODon 03-13-2020 PCO2 VENOUS 56.5 mmHg Critically high 40.0-52.0 [facility] Comment on above: Performed By: #### P HVEN #### [facility] [address] [place] [id number] Amanda Andie pH VENOUS 7.30 Critically low 7.33-7.43 [facility] Comment on above: Performed By: #### P HVEN #### [facility] [address] [place], [place] [address] Amanda Andie PROCALCITONINon 03-13-2020 PCT header 1 SEE BELOW Normal [facility] Comment on above: Result Comment: PCT <0.5ng/mL: Systemic infection (sepsis) is not likely, local bacterial infection possible, low risk for progression to severe systemic infection (severe sepsis) Performed By: #### P RL ####[facility] [address] [place], [place] [address]Qcrczy Andie PCT header 2 SEE BELOW Normal [facility] Comment on above: Result Comment: PCT >/=0.5 and <2 ng/mL: Systemic infection (sepsis) is possible, moderate risk for progression to severe systemic infection (severe sepsis) Performed By: #### P RL ####[facility] [address] [place] [address] Andie PCT header 3 SEE BELOW Normal [facility] Comment on above: Result Comment: PCT >/=2.0 and <10 ng/mL: Systemic infection (sepsis) is likely, unless other causes are known, high risk for progession to severe systemic infection(severe sepsis) Performed By: #### P RL ####[facility] [address] [place] [address] Andie PCT header 4 SEE BELOW Normal [facility] Comment on above: Result Comment: PCT >/= 10 ng/mL: Important systemic inflammatory response almost exclusively due to severe bacterial sepsis or septic shock, high likelihood of severe sepsis or septic shock Performed By: #### P RL ####[facility] [address] [place] [address] Andie PROCALCITONIN <0.05 Normal 0.00-0.50 [facility] Comment on above: Performed By: #### P RL ####[facility] [address] [place] [address] Andie PROF 14(COMP METB)on 020 Albumin [Mass/Vol] 3.8 g/dL Normal 3.5-5.0 [facility] Comment on above: Performed By: #### B DESTINATION SIGN REPAIRER, TSH, TROP, CMP ####[facility] [address] [place] [address] Andie Albumin/Globulin [Mass ratio] 0.8 {ratio} Normal [facility] Comment on above: Performed By: #### B DESTINATION SIGN REPAIRER, TSH, TROP, CMP ####[facility] [address] [place] [address] Andie ALP [Catalytic activity/Vol] 87 U/L Normal 38-126 [facility] Comment on above: Performed By: #### B DESTINATION SIGN REPAIRER, TSH, TROP, CMP ####[facility] [address] [place], [place] [address]Dbplmt Andie ALT [Catalytic activity/Vol] 17 U/L Normal 9-52 [facility] Comment on above: Performed By: #### B DESTINATION SIGN REPAIRER, TSH, TROP, CMP ####[facility] [address] [place], [place] [address]Ozjhwp Andie Anion gap [Moles/Vol] 13.1 mmol/L Normal Th e [facility] Comment on above: Performed By: #### B DESTINATION SIGN REPAIRER, TSH, TROP, CMP ####[facility] [address] [place], [place] [address]Pqauyv Andie AST [Catalytic activity/Vol] 11 U/L Critically low 14-36 [facility] Comment on above: Performed By: #### B DESTINATION SIGN REPAIRER, TSH, TROP, CMP ####[facility] [address] [place] [phone] Andie Bilirubin Ql (U) 0.3 mg/dL Normal 0.2-1.3 [facility] Comment on above: Performed By: #### B DESTINATION SIGN REPAIRER, TSH, TROP, CMP ####[facility] [address] [place] [phone] Andie Calcium [Mass/Vol] 9.8 mg/dL Normal 8.4-10.2 [facility] Comment on above: Performed By: #### B DESTINATION SIGN REPAIRER, TSH, TROP, CMP ####[facility] [address] [place] [phone] Andie Chloride [Moles/Vol] 104 mmol/L Normal 98-107 [facility] Comment on above: Performed By: #### B DESTINATION SIGN REPAIRER, TSH, TROP, CMP ####[facility] [address] [place], [place] [address]Kksedo Andie CO2 [Moles/Vol] 27.6 mmol/L Normal 22.0-30.0 [facility] Comment on above: Performed By: #### B DESTINATION SIGN REPAIRER, TSH, TROP, CMP ####[facility] [address] [place], [place] [address]Zqlnok Andie Creatinine [Mass/Vol] 1.08 mg/dL Critically high 0.52-1.04 [facility] Comment on above: Performed By: #### B DESTINATION SIGN REPAIRER, TSH, TROP, CMP ####[facility] [address] [place] [phone] Andie EGFR-AF SENEGALESE >60 Normal >=60 [facility] Comment on above: Performed By: #### B DESTINATION SIGN REPAIRER, TSH, TROP, CMP ####[facility] [address] [place] [phone] Andie EGFR-NON AF SENEGALESE 53 mL/min/1.73m2 Critically low >=60 [facility] Comment on above: Performed By: #### B DESTINATION SIGN REPAIRER, TSH, TROP, CMP ####[facility] [address] [place] [address] Andie Globulin (S) [Mass/Vol] 4.5 g/dL Normal [facility] Comment on above: Performed By: #### B DESTINATION SIGN REPAIRER, TSH, TROP, CMP ####[facility] [address] [place] [address]Gerken Andie Glucose [Mass/Vol] 132 mg/dL Critically high 74-106 [facility] Comment on above: Performed By: #### B DESTINATION SIGN REPAIRER, TSH, TROP, CMP ####[facility] [address] [place] [address] Andie Potassium [Moles/Vol] 3.7 mmol/L Normal 3.4-5.0 [facility] Comment on above: Performed By: #### B DESTINATION SIGN REPAIRER, TSH, TROP, CMP ####[facility] [address] [place], [place] [address]Gerken Andie Protein [Mass/Vol] 8.3 g/dL Critically high 6.1-8.2 [facility] Comment on above: Performed By: #### B DESTINATION SIGN REPAIRER, TSH, TROP, CMP ####[facility] [address] [place] [address]Gerken Andie Sodium [Moles/Vol] 141 mmol/L Normal 137-145 [facility] Comment on above: Performed By: #### B DESTINATION SIGN REPAIRER, TSH, TROP, CMP ####[facility] [address] [place], [place] [address]Fvawbh Andie Urea nitrogen [Mass/Vol] 14.0 mg/dL Normal 7.0-17.0 [facility] Comment on above: Performed By: #### B DESTINATION SIGN REPAIRER, TSH, TROP, CMP ####[facility] [address] [place] [phone] Andie Urea nitrogen/Creatinine [Mass ratio] 13.0 mg/mg Normal [facility] Comment on above: Performed By: #### B DESTINATION SIGN REPAIRER, TSH, TROP, CMP ####[facility] [address] [place], [place] [address]Ylebto Andie PROTIMEon 03-13-2020 INR Coag (PPP) [Relative time] 0.99 {INR} Normal [facility] Comment on above: Performed By: #### P TT, PT ####[facility] [address] [place], [place] [address]Gerken Andie PT Coag (PPP) [Time] 10.5 s Normal 9.0-11.6 [facility] Comment on above: Performed By: #### P TT, PT ####[facility] [address] [place], [place] [phone] Andie PT Coag (PPP) [Time] SEE BELOW Normal [facility] Comment on above: Result Comment: ROBERT RED INR: 2.0 - 3.0 CONDITIONS NOT LISTED BELOW 2.5 - 3.5 FOR PROSTHETIC HEART VALVE REPLACEMENT 2.5 - 3.5 RECURRENT THROMBOSIS Performed By: #### P TT, PT ####[facility] [address] [place] [address]Azkftc Andie PT Coag (PPP) [Time] PLEASE NOTE: NORMAL RANGE CHANGE 02-23-2014 DUE TO REAGENT LOT CHANGE Normal [facility] Comment on above: Performed By: #### P TT, PT ####[facility] [address] [place] [address]Kzlxek Andie PTTon 03-13-2020 aPTT Coag (Bld) [Time] 31.6 s Normal 22.3-36.2 [facility] Comment on above: Performed By: #### P TT, PT ####[facility] [address] [place] [address] Andie aPTT Coag (Bld) [Time] PLEASE NOTE: NORMAL RANGE CHANGE 05-02-2015 DUE TO REAGENT LOT CHANGE Normal [facility] Comment on above: Performed By: #### P TT, PT ####[facility] [address] [place] [address] Andie RESPIRATORY PANEL PLUSon Adenovirus NOT DETECTED Normal NOT DETECTED [facility] Comment on above: Performed By: #### R SPLUS ####[facility] [address] [place] [address] Andie B. Parapertusis NOT DETECTED Normal NOT DETECTED [facility] Comment on above: Performed By: #### R SPLUS ####[facility] [address] [place] [address] Andie B. Pertussis NOT DETECTED Normal NOT DETECTED [facility] Comment on above: Performed By: #### R SPLUS ####[facility] [address] [place] [address] Andie Chlamydia Pneumoniae NOT DETECTED Normal NOT DETECTED [facility] Comment on above: Performed By: #### R SPLUS ####[facility] [address] [place] [address] Andie Coronavirus 229E NOT DETECTED Normal NOT DETECTED [facility] Comment on above: Performed By: #### R SPLUS ####[facility] [address] [place] [address] Andie Coronavirus HKU1 NOT DETECTED Normal NOT DETECTED [facility] Comment on above: Performed By: #### R SPLUS ####[facility] [address] [place] [address] Andie Coronavirus NL63 NOT DETECTED Normal NOT DETECTED [facility] Comment on above: Performed By: #### R SPLUS ####[facility] [address] [place] [address] Andie Coronavirus OC43 NOT DETECTED Normal NOT DETECTED [facility] Comment on above: Performed By: #### R SPLUS ####[facility] [address] Andie Influenza A H1 2009 NOT DETECTED Normal NOT DETECTED T [facility] Comment on above: Performed By: #### R SPLUS ####[facility] [address] Andie Influenza B NOT DETECTED Normal NOT DETECTED [facility] Comment on above: Performed By: #### R SPLUS ####[facility] Z[address] Andie Metapneumovirus NOT DETECTED Normal NOT DETECTED [facility] Comment on above: Performed By: #### R SPLUS ####[facility] Uh[address]ge[address] Andie Mycoplas. Pneumoniae NOT DETECTED Normal NOT DETECTED [facility] Comment on above: Performed By: #### R SPLUS ####[facility] [address] Andie Parainfluenza 1 NOT DETECTED Normal NOT DETECTED [facility] Comment on above: Performed By: #### R SPLUS ####[facility] [address] Andie Parainfluenza 2 NOT DETECTED Normal NOT DETECTED [facility] Comment on above: Performed By: #### R SPLUS ####[facility] [address] Andie Parainfluenza 3 NOT DETECTED Normal NOT DETECTED [facility] Comment on above: Performed By: #### R SPLUS ####[facility] L[address] Andie Parainfluenza 4 NOT DETECTED Normal NOT DETECTED [facility] Comment on above: Performed By: #### R SPLUS ####[facility] Cat[address] Andie Rhino/Enterovirus NOT DETECTED Normal NOT DETECTED [facility] Comment on above: Performed By: #### R SPLUS ####[facility] [address] RP2 Header 1 RESPIRATORY PANEL: VIRUSES Normal [facility] Comment on above: Performed By: #### R SPLUS ####[facility] De[address]ws[address]xq[address] RP2 Header 2 RESPIRATORY PANEL: BACTERIA Normal [facility] Comment on above: Performed By: #### R SPLUS ####[facility] [address] [place] [address] RP2 Header 4 EUA SEE BELOW Normal [facility] Comment on above: Result Comment: This test is not yet approved or cleared by the [place] FDA. When there are no FDA-approved or cleared tests available, and other criteria are met, FDA can make tests available under an emergency access mechanism called an Emergency Use Authorization (EUA). The EUA for this test is supported by the [employer] Manager of Health and Human Service?s (HHS?s) declaration [...] be used). Performed By: #### R SPLUS ####[facility] [address] [place] [address] RSV NOT DETECTED Normal NOT DETECTED [facility] Comment on above: Performed By: #### R SPLUS ####[facility] [address] [place] [address] SARS-CoV-2: COVID-19 NOT DETECTED Normal NOT DETECTED [facility] Comment on above: Performed By: #### R SPLUS ####[facility] [address] [place] [address] TROPONIN - Ion 03-13-2020 Troponin I.cardiac [Mass/Vol] ng/mL Normal <=0.034 [facility] Comment on above: Performed By: #### B DESTINATION SIGN REPAIRER, TSH, TROP, CMP ####[facility] [address] Troponin I.cardiac [Mass/Vol] SEE BELOW Normal [facility] Comment on above: Result Comment: <0.0 34 ng/ml NEGATIVE 0.034-0.119 INDETERMINATE 0.120 AMI CUT OFF Performed By: #### B DESTINATION SIGN REPAIRER, TSH, TROP, CMP ####[facility] F[address] TSHon 03-13-2020 TSH Qn 11.996 uIU/mL Critically high 0.470-4.680 [facility] Comment on above: Performed By: #### B DESTINATION SIGN REPAIRER, TSH, TROP, CMP ####[facility] Z[address] TSH Qn SEE BELOW Normal [facility] Comment on above: Result Comment: <0.3 4 UIU/ml HYPERTHYROID 0.34-5.60 UIU/ml EUTHYROID >5.60 UIU/ml HYPOTHYROID Performed By: #### B DESTINATION SIGN REPAIRER, TSH, TROP, CMP ####[facility] Row[address] MRI LSPINE WO CONon 10-21-19 20 MRI LSLACOMBE WO CON EXAMINATION: MRI [facility] WO CON HISTORY: Sacroiliac joint inflamed ; [...] by: ALYSSA LOUIS Date: 2019-10-21 15:50 Normal [facility] MRI CSPINE WO CONon 10-19-19 MRI [facility] WO CON EXAMINATION: MRI CSPINE WO CON [...] by: ALYSSA LOUIS Date: 2019-10-19 15:31 Normal [facility] MRI TSPINE WO CONon 10-19-19 MRI TSPINE WO CON EXAMINATION: MRI TSPINE WO CON [...] ALYSSA LOUIS Date: 2019-10-19 15:36 Normal [facility] CONSULTATIONon 06-20-2019 CONSULTATION CONSULTATION PAIN MANAGEMENT Consultation [...] pain are sitting, lying down, heat, Flexeril, [place], lidocaine patches topically, and Voltaren gel. On [...] her pain. Dictated by Aisha El APRN [facility] Signed and Approved by: AISHA EL 07/18/2019 12:39:00 Normal [facility] CONSULTATIONon 05-10-2019 CONSULTATION CONSULTATION PAIN MANAGEMENT Consultation [...] would like to proceed. cc:Dr. Arleen Mendoza [facility] Signed and Approved by: DR JESSICA OBRIEN 05/17/2019 13:36:00 [facility] Vital Signs Date Time Vital Sign Value Performing Clinician Susannah trinidad 02-13-2025 14:05-0400 Heart rate 92 /min Camilla [employer] Work Phone: [facility] 02-13-2025 14:04-0400 Diastolic blood pressure 72 mm[Hg] Camilla [employer] Work Phone: [facility] 02-13-2025 14:04-0400 Systolic blood pressure 110 mm[Hg] Camilla [employer] Work Phone: [facility] 02-13-2025 13:38-0400 Body height 156.01 cm Camilla [employer] Work Phone: [facility] 02-13-2025 13:38-0400 Body mass index (BMI) [Ratio] 51.5 kg/m2 Camilla [employer] Work Phone: [facility] 02-13-2025 13:38-0400 Body temperature 98.5 [degF] Camilla [employer] Work Phone: [facility] 02-13-2025 13:38-0400 Body weight 125.3 kg Camilla [employer] Work Phone: [facility] 02-13-2025 13:38-0400 Respiratory rate 24 /min Camilla Aichholz Work Phone: [facility] 02-13-2025 13:38-0400 SaO2% (BldA) [Mass fraction] 97 % Camilla Dannyholz Work Phone: [facility] 08-01-2024 19:39-0500 Heart rate 122 /min Camillamyron Delgadoholz DESTINATION SIGN REPAIRER Work Phone: [facility] 08-01-2024 14:40-0500 Body height 152.4 cm Camilla Lolihholz DESTINATION SIGN REPAIRER Work Phone: [facility] 08-01-2024 14:40-0500 Body mass index (BMI) [Ratio] 57.77 kg/m2 Caimlla Dannyholz DESTINATION SIGN REPAIRER Work Phone: [facility] 08-01-2024 14:40-0500 Body temperature 98.1 [degF] Camillamyron Delgadoholz DESTINATION SIGN REPAIRER Work Phone: [facility] 08-01-2024 14:40-0500 Body weight 134.17 kg Camillamyron Delgadoholz DESTINATION SIGN REPAIRER Work Phone: [facility] 08-01-2024 14:40-0500 Diastolic blood pressure 82 mm[Hg] Camilla Dannyholz DESTINATION SIGN REPAIRER Work Phone: [facility] 08-01-2024 14:40-0500 Respiratory rate 20 /min Camlila Dannyholz DESTINATION SIGN REPAIRER Work Phone: [facility] 08-01-2024 14:40-0500 SaO2% (BldA) [Mass fraction] 96 % Camilla Dannyholz DESTINATION SIGN REPAIRER Work Phone: [facility] 08-01-2024 14:40-0500 Systolic blood pressure 122 mm[Hg] Camilla Dannyholz DESTINATION SIGN REPAIRER Work Phone: [facility] 03-26-2024 19:19-0400 Body height 152.4 cm Olimpia Yu DESTINATION SIGN REPAIRER Work Phone: [facility] 03-26-2024 19:19-0400 Body mass index (BMI) [Ratio] 64.84 kg/m2 Olimpia Yu DESTINATION SIGN REPAIRER Work Phone: [facility] 03-26-2024 19:19-0400 Body temperature 97.3 [degF] Olimpia Yu DESTINATION SIGN REPAIRER Work Phone: [facility] 03-26-2024 19:19-0400 Body weight 150.59 kg Olimpia Yu DESTINATION SIGN REPAIRER Work Phone: [facility] 03-26-2024 19:19-0400 Diastolic blood pressure 78 mm[Hg] Olimpia Yu DESTINATION SIGN REPAIRER Work Phone: [facility] 03-26-2024 19:19-0400 Heart rate 89 /min Olimpia Yu DESTINATION SIGN REPAIRER Work Phone: [facility] 03-26-2024 19:19-0400 Respiratory rate 18 /min Olimpia Yu DESTINATION SIGN REPAIRER Work Phone: [facility] 03-26-2024 19:19-0400 SaO2% (BldA) [Mass fraction] 93 % Olimpia Yu DESTINATION SIGN REPAIRER Work Phone: [facility] 03-26-2024 19:19-0400 Systolic blood pressure 117 mm[Hg] Olimpia Yu DESTINATION SIGN REPAIRER Work Phone: [facility] 02-21-2024 18:52-0400 Body height 154.9 cm Olimpia Yu DESTINATION SIGN REPAIRER Work Phone: [facility] 02-21-2024 18:52-0400 Body mass index (BMI) [Ratio] 64.24 kg/m2 Olimpia Yu DESTINATION SIGN REPAIRER Work Phone: [facility] 02-21-2024 18:52-0400 Body temperature 98.2 [degF] Olimpia Yu DESTINATION SIGN REPAIRER Work Phone: [facility] 02-21-2024 18:52-0400 Body weight 154.22 kg Olimpia Nicolek DESTINATION SIGN REPAIRER Work Phone: [facility] 02-21-2024 18:52-0400 Diastolic blood pressure 90 mm[Hg] Olimpia Yuzpatrick DESTINATION SIGN REPAIRER Work Phone: [facility] 02-21-2024 18:52-0400 Heart rate 102 /min Olimpia Raymondpatrick DESTINATION SIGN REPAIRER Work Phone: [facility] 02-21-2024 18:52-0400 Respiratory rate 18 /min Olimpia Raymondpatrick DESTINATION SIGN REPAIRER Work Phone: [facility] 02-21-2024 18:52-0400 SaO2% (BldA) [Mass fraction] 95 % Olimpia Raymondpatrick DESTINATION SIGN REPAIRER Work Phone: [facility] 02-21-2024 18:52-0400 Systolic blood pressure 136 mm[Hg] Olimpia Raymondpatrick DESTINATION SIGN REPAIRER Work Phone: [facility] Healthcare Encounters Encounter Date Encounter Type Care Provider Facility Start: 02-13-2025 End: 02-13-2025 ambulatory Camilla Recinos Work Phone: [facility] Work Phone: Start: 02-13-2025 End: 02-13-2025 Patient encounter procedure Camilla Recinos DESTINATION SIGN REPAIRER-C [facility] Work Phone: Start: 01-31-2025 End: 01-31-2025 Orders Only Camilla Recinos DESTINATION SIGN REPAIRER Work Phone: [facility] Comment on above: Spinal stenosis of t horacolumbar region (Primary Dx) Start: 01-30-2025 End: 01-30-2025 Refill Camilla Recinos DESTINATION SIGN REPAIRER Work Phone: [facility] Comment on above: Hypothyroidism, unsp ecified type (Primary Dx) Degeneration of inte rvertebral disc of lumbosacral region; Primary osteoarthritis involving multiple joints; Spinal stenosis of thoracolumbar region Start: 01-25-2025 End: 01-25-2025 Refill Camilla Jorje DESTINATION SIGN REPAIRER Work Phone: [facility] Comment on above: Herpes zoster withou t complication Start: 01-21-2025 End: 01-21-2025 Clinisync Result Encounter Camilla Jorje DESTINATION SIGN REPAIRER Work Phone: [facility] External Department Unsolicited Start: 01-21-2025 End: 01-21-2025 Clinisync Result Encounter Camilla Jorje DESTINATION SIGN REPAIRER Work Phone: [facility] External Department Unsolicited Start: 12-28-2024 End: 12-30-2024 Refill Camilla Rosemaryz DESTINATION SIGN REPAIRER Work Phone: [facility] Comment on above: Degeneration of inte rvertebral disc of lumbosacral region; Primary osteoarthritis involving multiple joints; Spinal stenosis of thoracolumbar region Start: 12-01-2024 End: 12-01-2024 Refill Camilla Rosemaryz DESTINATION SIGN REPAIRER Work Phone: [facility] Comment on above: Degeneration of inte rvertebral disc of lumbosacral region; Primary osteoarthritis involving multiple joints; Spinal stenosis of thoracolumbar region Start: 10-27-2024 End: 10-27-2024 ambulatory CAMILLA JORJE Not Available Start: 10-05-2024 End: 10-06-2024 Refill Camilla Jroje DESTINATION SIGN REPAIRER Work Phone: [facility] Comment on above: Degeneration of inte rvertebral disc of lumbosacral region; Primary osteoarthritis involving multiple joints; Spinal stenosis of thoracolumbar region Start: 09-08-2024 End: 09-08-2024 Telephone encounter Camilla Jorje DESTINATION SIGN REPAIRER Work Phone: [facility] Start: 09-06-2024 End: 09-08-2024 Refill Camilla Dannyholz DESTINATION SIGN REPAIRER Work Phone: [facility] Comment on above: Degeneration of inte rvertebral disc of lumbosacral region; Primary osteoarthritis involving multiple joints; Spinal stenosis of thoracolumbar region Start: 08-08-2024 End: 08-08-2024 Refill Aiden Santamaria MD Work Phone: [facility] Comment on above: Degeneration of inte rvertebral disc of lumbosacral region; Primary osteoarthritis involving multiple joints; Spinal stenosis of thoracolumbar region Start: 08-01-2024 End: 08-01-2024 Office outpatient visit 25 minutes Camilla Recinos DESTINATION SIGN REPAIRER Work Phone: [facility] Comment on above: Hypothyroidism, unsp ecified type [...] Start: 08-01-2024 End: 08-01-2024 Bamboo flowsheet Camilla Recinos DESTINATION SIGN REPAIRER Work Phone: [facility] Start: 08-01-2024 End: 08-01-2024 Bamboo flowsheet Camilla Recinos DESTINATION SIGN REPAIRER Work Phone: [facility] Start: 07-27-2024 End: 07-27-2024 Refill Olimpia Yu DESTINATION SIGN REPAIRER Work Phone: [facility] Comment on above: Pulmonary emphysema, unspecified emphysema type (CMS/HCC) Start: 07-08-2024 End: 07-11-2024 Refill Olimpia Yu DESTINATION SIGN REPAIRER Work Phone: [facility] Comment on above: Degeneration of inte rvertebral disc of lumbosacral region; Primary osteoarthritis involving multiple joints; Spinal stenosis of thoracolumbar region Start: 06-24-2024 End: 06-28-2024 Refill Olimpia Yu DESTINATION SIGN REPAIRER Work Phone: [facility] Comment on above: Morbid obesity (CMS/ HCC) Start: 06-12-2024 End: 06-13-2024 Refill Olimpia Yu DESTINATION SIGN REPAIRER Work Phone: [facility] Comment on above: Degeneration of inte rvertebral disc of lumbosacral region; Primary osteoarthritis involving multiple joints; Spinal stenosis of thoracolumbar region Start: 05-16-2024 End: 05-16-2024 Orders Only Olimpia Yu DESTINATION SIGN REPAIRER Work Phone: [facility] Comment on above: Morbid obesity (CMS/ HCC) (Primary Dx) Start: 05-13-2024 End: 05-16-2024 Refill Olimpia Yu DESTINATION SIGN REPAIRER Work Phone: [facility] Comment on above: Neuropathy; Chronic fatigue syndrome with fibromyalgia; Post herpetic neuralgia (CMS/HCC); 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); Morbid obesity (CMS/HCC); Hiatal hernia with GERD and esophagitis; Degeneration of intervertebral disc of lumbosacral region; Primary osteoarthritis involving multiple joints; Spinal stenosis of thoracolumbar region Start: 04-18-2024 End: 04-18-2024 Refill Olimpia Yu DESTINATION SIGN REPAIRER Work Phone: [facility] Comment on above: Degeneration of inte rvertebral disc of lumbosacral region; Primary osteoarthritis involving multiple joints; Spinal stenosis of thoracolumbar region Start: 03-26-2024 End: 03-26-2024 Home visit est pt mod-hi severity 40 minutes Olimpia Yu DESTINATION SIGN REPAIRER Work Phone: [facility] Comment on above: Degeneration of inte rvertebral disc of lumbosacral region with discogenic back pain and lower extremity pain (Primary Dx); Obstructive sleep apnea; Pulmonary emphysema, unspecified emphysema type (CMS/HCC); Morbid obesity (CMS/HCC); 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); Hiatal hernia with GERD and esophagitis; Stage 3a chronic kidney disease (HCC) (CMS/HCC) Start: 03-21-2024 End: 03-21-2024 Clinisync Result Encounter Olimpia Yu DESTINATION SIGN REPAIRER Work Phone: [facility] External Department Unsolicited Start: 03-21-2024 End: 03-21-2024 Clinisync Result Encounter Olimpia Yu DESTINATION SIGN REPAIRER Work Phone: [facility] External Department Unsolicited Start: 03-18-2024 End: 03-18-2024 Orders Only Olimpia Yu DESTINATION SIGN REPAIRER Work Phone: [facility] Comment on above: Degeneration of inte rvertebral disc of lumbosacral region; Primary osteoarthritis involving multiple joints; Spinal stenosis of thoracolumbar region Start: 03-09-2024 End: 03-09-2024 ambulatory OLIMPIA YU Not Available Start: 02-29-2024 End: 02-29-2024 Refill Olimpia Yu DESTINATION SIGN REPAIRER Work Phone: [facility] Comment on above: Hiatal hernia with G ERD and esophagitis Start: 02-27-2024 Encounter for genera l adult medical examination with abnormal findings Olimpia Aimee DESTINATION SIGN REPAIRER Work Phone: [facility] Start: 02-25-2024 End: 02-25-2024 Encounter for general adult medical examination with abnormal findings Olimpia Yu DESTINATION SIGN REPAIRER Work Phone: [facility] Start: 02-25-2024 End: 02-25-2024 Initial preventive medicine new patient 40-64yrs Olimpia Aimee DESTINATION SIGN REPAIRER Work Phone: [facility] Comment on above: Neuropathy (Primary Dx); Hiatal [...] End: 02-06-2024 Clinisync Result Encounter Olimpia Yu DESTINATION SIGN REPAIRER Work Phone: [facility] Unsolicited Start: 02-06-2024 End: 02-06-2024 Clinisync Result Encounter Olimpia Yu DESTINATION SIGN REPAIRER Work Phone: [facility] Unsolicited Start: 01-31-2024 End: 02-05-2024 Orders Only Olimpia Yu DESTINATION SIGN REPAIRER Work Phone: [facility] Comment on above: Congenital hypothyro [...] End: 06-21-2019 Patient encounter procedure JESSICA S CAMILLE Facility:[facility] Start: 05-24-2019 End: 05-24-2019 Patient encounter procedure JESSICA S CAMILLE Facility:[facility] Start: 05-10-2019 End: 05-11-2019 Patient encounter procedure JESSICA OBRIEN Facility: Start: 04-13-2018 End: 04-13-2018 Patient encounter procedure Lebron Hogan Facility:[facility] Procedures Date Procedure Procedure Detail Performing Clinician Start: 01-21-2025 ALL CBC WITH AUTO DIFF Camilla Recinos DESTINATION SIGN REPAIRER Work Phone: Start: 01-21-2025 [facility] UA (CLEAN/CATCH) MICROSCOPIC IF INDICATE Camilla Recinos DESTINATION SIGN REPAIRER Work Phone: Start: 03-21-2024 [facility] MICROALB CREAT R ATIO RANDOM Olimpia Yu DESTINATION SIGN REPAIRER Work Phone: Start: 02-06-2024 [facility] HEMOGLOBIN A1C Lenora Yu DESTINATION SIGN REPAIRER Work Phone: Start: 03-13-2020 End: 03-13-2020 Microscopic examination of blood, culture JESSICA OBRIEN Comment on above: Performed By: #### B [id number] ####[facility] [id number] [place] Performed By: #### B [id number] ####[facility] [id number] [place] Start: 08-11-2012 Colonoscopy Olimpia monk DESTINATION SIGN REPAIRER Work Phone: Plan of Treatment Date Care Activity Detail Author Start: 02-24-2025 Medicare Annual Well ness (AWV) Medicare Annual Wellness (AWV) [facility] Start: 02-13-2025 End: 02-13-2025 Patient encounter procedure 02/13/2025 1:30 PM EDT Office Visit [facility] [address] [place] [address] Camilla Recinos NP [address] [place] [id number] [facility] Start: 01-30-2025 End: 01-30-2025 Patient encounter procedure 01/30/2025 2:00 PM EDT Office Visit [facility] [address] [place] [id number] Camilla Recinos NP [address] [place] [address] [facility] Start: 10-27-2024 End: 10-27-2024 Patient encounter procedure 10/27/2024 1:00 PM EDT [facility] [address] [place] [address] Camilla Recinos NP [address] [place] [address] [facility] Start: 08-01-2024 End: 08-01-2024 Patient encounter procedure [facility] Comment on above: Obstructive sleep ap ugo (Primary Dx); Chronic kidney disease, stage 3a (HCC) (CMS/HCC); Spinal stenosis of thoracolumbar region; Asthma, unspecified asthma severity, unspecified whether complicated, unspecified whether persistent (CMS/HCC); Pulmonary emphysema, unspecified emphysema type (CMS/HCC); Hiatal hernia with GERD and esophagitis; Hypothyroidism, unspecified type ([facility]/HCC); Morbid obesity ([facility]/HCC); Anxiety; Depression, unspecified depression type ([facility]/HCC); Migraine with aura and without status migrainosus, not intractable ([facility]/HCC); Cigarette nicotine dependence without complication; Neuropathy Start: 08-01-2024 End: 08-01-2025 CBC W Auto Differential panel - Blood CBC and differential Lab Routine Obstructive sleep apnea Asthma, unspecified asthma severity, unspecified whether complicated, unspecified whether persistent (CMS/HCC) Pulmonary emphysema, unspecified emphysema type (CMS/HCC) Expected: 08/01/2024 (Approximate), Expires: 08/01/2025 [facility] Comment on above: Expected: 08/01/2024 (Approximate), Expires: 08/01/2025 Start: 08-01-2024 End: 08-01-2025 Comprehensive metabolic 2000 panel - Serum or Plasma Comprehensive metabolic panel Lab Routine Chronic kidney disease, stage 3a (HCC) (CMS/HCC) Expected: 08/01/2024 (Approximate), Expires: 08/01/2025 [facility] Comment on above: Expected: 08/01/2024 (Approximate), Expires: 08/01/2025 Start: 08-01-2024 End: 08-01-2025 Lipid 1996 panel - Serum or Plasma Lipid panel Lab Routine Hypothyroidism, unspecified type (CMS/HCC) Morbid obesity (CMS/HCC) Expected: 08/01/2024 (Approximate), Expires: 08/01/2025 [facility] Work Phone: Comment on above: Expected: 08/01/2024 (Approximate), Expires: 08/01/2025 Start: 08-01-2024 End: 08-01-2025 Thyrotropin [Units/volume] in Serum or Plasma TSH Lab Routine Hypothyroidism, unspecified type (CMS/HCC) Expected: 08/01/2024 (Approximate), Expires: 08/01/2025 [facility] Comment on above: Expected: 08/01/2024 (Approximate), Expires: 08/01/2025 Start: 08-01-2024 End: 08-01-2025 Thyroxine (T4) free [Mass/volume] in Serum or Plasma T4, free Lab Routine Hypothyroidism, unspecified type (CMS/HCC) Expected: 08/01/2024 (Approximate), Expires: 08/01/2025 [facility] Comment on above: Expected: 08/01/2024 (Approximate), Expires: 08/01/2025 Start: 08-01-2024 End: 08-01-2025 Urinalysis complete panel - Urine Urinalysis with reflex microscopic (clean catch) Lab Routine Cigarette nicotine dependence without complication Expected: 08/01/2024 (Approximate), Expires: 08/01/2025 [facility] Comment on above: Expected: 08/01/2024 (Approximate), Expires: 08/01/2025 Start: 06-08-2024 Screening for malign ant neoplasm of breast Mammogram [facility] Comment on above: Postponed from 06/18 (Patient Refused) Start: 06-08-2024 Screening for malign ant neoplasm of cervix Cervical Cancer Screening [facility] Comment on above: Postponed from 06/18 (Other Patient Reasons) Start: 03-26-2024 End: 03-26-2025 Basic metabolic 1998 panel - Serum or Plasma Basic metabolic panel Lab Routine Stage 3a chronic kidney disease (HCC) ([facility]/HCC) Expected: 03/26/2024 (Approximate), Expires: 03/26/2025 [facility] Comment on above: Expected: 03/26/2024 (Approximate), Expires: 03/26/2025 Start: 03-26-2024 End: 03-26-2025 TSH W/REFLEX TO FT4 TSH W/REFLEX TO FT4 Lab Routine 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 ([facility]/HCC) Expected: 03/26/2024 (Approximate), Expires: 03/26/2025 [facility] Work Phone: Comment on above: Expected: 03/26/2024 (Approximate), Expires: 03/26/2025 Start: 03-03-2024 End: 03-03-2024 Professional / ancillary services management 03/03/2024 11:00 AM EDT Ancillary Procedure [facility] [id number] [facility] [phone] [facility] Start: 02-27-2024 End: 02-26-2025 Noninvasive colorectal cancer DNA and occult blood screening [Presence] in Stool Cologuard colon cancer screening Lab Routine Screening for colon cancer Expected: 02/27/2024 (Approximate), Expires: 02/26/2025 [facility] Comment on above: Expected: 02/27/2024 (Approximate), Expires: 02/26/2025 Start: 02-22-2024 End: 02-21-2025 Basic metabolic 1998 panel - Serum or Plasma Basic metabolic panel Lab Routine Stage 3a chronic kidney disease (HCC) ([facility]/HCC) Expected: 02/22/2024 (Approximate), Expires: 02/21/2025 [facility] Comment on above: Expected: 02/22/2024 (Approximate), Expires: 02/21/2025 Start: 02-22-2024 End: 02-21-2025 Microalbumin/Creatinine panel in random Urine Microalbumin / creatinine urine ratio Lab Routine Stage 3a chronic kidney disease (HCC) ([facility]/HCC) Expected: 02/22/2024 (Approximate), Expires: 02/21/2025 [facility] Comment on above: Expected: 02/22/2024 (Approximate), Expires: 02/21/2025 Start: 02-21-2024 End: 02-20-2026 Echocardiogram 2D complete Echocardiogram 2D complete Echocardiography Routine Stage 3a chronic kidney disease (HCC) ([facility]) Obstructive sleep apnea Expected: 02/21/2024 (Approximate), Expires: 02/20/2026 [facility] Work Phone: Comment on above: Expected: 02/21/2024 (Approximate), Expires: 02/20/2026 Start: 02-21-2024 End: 02-20-2025 Pulmonary function report Pulmonary Function Test Imaging Routine Obstructive sleep apnea Pulmonary emphysema, unspecified emphysema type ([facility]) Expected: 02/21/2024 (Approximate), Expires: 02/20/2025 [facility] Comment on above: Expected: 02/21/2024 (Approximate), Expires: 02/20/2025 Start: 02-07-2024 Influenza vaccination Influenza Vacc ine (#1) [facility] Start: 01-31-2024 End: 01-30-2025 25-hydroxyvitamin D3 [Mass/volume] in Serum or Plasma Vitamin D 25 hydroxy Lab Routine Osteopenia after menopause Expected: 01/31/2024 (Approximate), Expires: 01/30/2025 [facility] Comment on above: Expected: 01/31/2024 (Approximate), Expires: 01/30/2025 Start: 01-31-2024 End: 01-30-2025 CBC W Auto Differential panel - Blood CBC and differential Lab Routine Congenital hypothyroidism with diffuse goiter ([facility]) Chronic fatigue syndrome with fibromyalgia DLE (discoid lupus erythematosus) ([facility]/HCC) Morbid obesity ([facility]/HCC) Family history of bleeding or clotting disorder Expected: 01/31/2024 (Approximate), Expires: 01/30/2025 [facility] Comment on above: Expected: 01/31/2024 (Approximate), Expires: 01/30/2025 Start: 01-31-2024 End: 01-30-2025 Cobalamin (Vitamin B12) [Mass/volume] in Serum or Plasma Vitamin B12 Lab Routine Chronic fatigue syndrome with fibromyalgia Family history of bleeding or clotting disorder Expected: 01/31/2024 (Approximate), Expires: 01/30/2025 [facility] Comment on above: Expected: 01/31/2024 (Approximate), Expires: 01/30/2025 Start: 01-31-2024 End: 01-30-2025 Comprehensive metabolic 2000 panel - Serum or Plasma Comprehensive metabolic panel Lab Routine Congenital hypothyroidism with diffuse goiter (CMS/HCC) Chronic fatigue syndrome with fibromyalgia DLE (discoid lupus erythematosus) (CMS/HCC) Morbid obesity (CMS/HCC) Expected: 01/31/2024 (Approximate), Expires: 01/30/2025 [facility] Comment on above: Expected: 01/31/2024 (Approximate), Expires: 01/30/2025 Start: 01-31-2024 End: 01-30-2025 Ferritin [Mass/volume] in Serum or Plasma Ferritin Lab Routine Chronic fatigue syndrome with fibromyalgia Family history of bleeding or clotting disorder Expected: 01/31/2024 (Approximate), Expires: 01/30/2025 [facility] Comment on above: Expected: 01/31/2024 (Approximate), Expires: 01/30/2025 Start: 01-31-2024 End: 01-30-2025 Hemoglobin A1c/Hemoglobin.total in Blood Hemoglobin A1c Lab Routine Congenital hypothyroidism with diffuse goiter (CMS/HCC) DLE (discoid lupus erythematosus) (CMS/HCC) Morbid obesity (CMS/HCC) Expected: 01/31/2024 (Approximate), Expires: 01/30/2025 [facility] Comment on above: Expected: 01/31/2024 (Approximate), Expires: 01/30/2025 Start: 01-31-2024 End: 01-30-2025 Iron + transferrin + TIBC Iron + transferrin + TIBC Lab Routine Chronic fatigue syndrome with fibromyalgia Family history of bleeding or clotting disorder Expected: 01/31/2024 (Approximate), Expires: 01/30/2025 [facility] Comment on above: Expected: 01/31/2024 (Approximate), Expires: 01/30/2025 Start: 01-31-2024 End: 01-30-2025 Lipid 1996 panel - Serum or Plasma Lipid panel Lab Routine Morbid obesity (CMS/HCC) Expected: 01/31/2024 (Approximate), Expires: 01/30/2025 [facility] Comment on above: Expected: 01/31/2024 (Approximate), Expires: 01/30/2025 Start: 01-31-2024 End: 01-30-2025 TSH W/REFLEX TO FT4 TSH W/REFLEX TO FT4 Lab Routine Chronic fatigue syndrome with fibromyalgia DLE (discoid lupus erythematosus) (CMS/HCC) Morbid obesity (CMS/HCC) Expected: 01/31/2024 (Approximate), Expires: 01/30/2025 [facility] Work Phone: Comment on above: Expected: 01/31/2024 (Approximate), Expires: 01/30/2025 Start: 08-11-2022 Screening for malign ant neoplasm of colon [facility] Start: 2007 Screening for malign ant neoplasm of breast Mammogram [facility] Start: 1997 Screening for malign ant neoplasm of cervix [facility] Start: 1988 Screening for malign ant neoplasm of cervix Pap Smear [facility] Start: 1967 Medicare Annual Well ness (AWV) Medicare Annual Wellness (AWV) [facility] Start: 1967 Screening for malign ant neoplasm of colon [facility] Start: 1967 Screening for malign ant neoplasm of lung Lung Cancer Screening Shared Decision Making [facility] Immunizations Immunization Date Immunization Notes Care Provider [facility] 03-13-2020 influenza, high dose seasonal, preservative-free Camilla Recinos NP Work Phone: [facility] 03-13-2020 pneumococcal conjuga te vaccine, 13 valent Camilla Recinos 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 [id number] 2021 Medicare [id number] 2018 Medicare [id number] 2018 Self-pay 2018 Unknown [id number] 2016 Medicare [id number] 1967 Unknown [id number] 2.16.84 [id number] 1967 Unknown [id number] 2.16.84 [id number] 1967 Unknown [id number] 2.16.84 [id number] 1967 Unknown [id number] 2.16.84 [id number] 1967 Unknown [id number] 2.16.84 [id number] 1967 Unknown [id number] 2.16.84 [id number] 1967 Unknown [id number] 2.16.84 [id number] 1967 Unknown [id number] 2.16.84 [id number] 1967 Unknown [id number] 2.16.84 [id number] 1967 Unknown [id number] 2.16.84 [id number] 1959 Medicare [id number] Medicare [id number] Unknown [id number] 2.16.84 [id number] Unknown [facility] [id number] Social History Date Type Detail Facility Start: 06-08-1981 Tobacco smoking status AKIS Smokes tobacco daily [facility] Start: 06-08-1981 History of tobacco use Cigarette Smoker [facility] Start: 02-21-2024 End: 10-26-2024 Cigarettes smoked current (pack per day) - Reported 1.5 [facility] Start: 02-21-2024 Tobacco use and exposure Smokeless tobacco non-user [facility] Start: 02-21-2024 End: 10-27-2024 Alcoholic beverage intake Lifetime non-drinker (finding) [facility] Start: 02-21-2024 End: 10-26-2024 Tobacco use panel [facility] Start: 1965 Sex assigned at Not on file [facility] Tobacco smoking status NHIS Tobacco smoking consumption unknown [facility] How [...] a partner? [facility] How many standard drinks containing alcohol do you have on a typical day? Patient does not drink [facility] How hard is it for you to pay for the very basics like food, housing, medical care, and heating Very hard [facility] Do you feel stress - tense, restless, nervous, or anxious, or unable to sleep at night because your mind is troubled all the time - these days [OSQ] Rather much [facility] (I/We) worried whether (my/our) food would run out before (I/we) got money to buy more. Sometimes true [facility] The food that (I/we) bought just didn't last, and (I/we) didn't have money to get more. Never true [facility] In the past 12 months, was there a time when you were not able to pay the mortgage or rent on time? Yes [facility] Sex Female (finding) [facility] Start: 1965 Sex Assigned At Female F [facility] NEGATED: Highlighted row N [facility] Clinical Notes 02-25-2024 to 09-08-2024 Telephone Encounter - CAROLE TEAGUE - 09/08/2024 8:14 AM EDTTelephone Encounter - CAROLE TEAGUE - 09/08/2024 8:14 AM EDTTelephone Encounter - Camilla Recinos NP - 09/08/2024 8:10 AM EDT Note Date & Type Note Facility 09-08-2024 Telephone encount er Note Text Manager Steel Yes. Hi, my name is Celio. I am calling from [facility]. I was informed on a mutual patient, [...] provider that she no longer is the drScarlett for her case and to reach out to Dr. Mcclain office, which I am doing so those notes in office or in prescription Need to be faxed [phone] have also already canceled the order. But if you guys resend that, we can open the order. If you have any questions, we can be reached to [phone]. Thank you. [facility] 09-08-2024 Miscellaneous Notes Formattin g of this note might be different from the original. Text Manager Steel Yes. Hi, my name is Celio. I am calling from [facility]. I was informed on a mutual patient, [...] provider that she no longer is the drScarlett for her case and to reach out to Dr. Mcclain office, which I am doing so those notes in office or in prescription Need to be faxed [phone] have also already canceled the order. But if you guys resend that, we can open the order. If you have any questions, we can be reached to [phone]. Thank you. Please contact the patient, I would like her to see pain management for evaluation of her chronic back pain, ongoing treatment with pain medication, should be managed by Pain Management. I would like to refer her to Pain Mgmt with [facility], is she willing to go see them? [place] documented in this encounter [facility] 09-08-2024 Telephone encount er Note Please contact the patient, I would like her to see pain management for evaluation of her chronic back pain, ongoing treatment with pain medication, should be managed by Pain Management. I would like to refer her to Pain Mgmt with [facility], is she willing to go see them? [place] [facility] 08-01-2024 History of Presen t illness Narrative Associated Problem(s): Spinal stenosis Has gone through pain mgmt in the past Most recent MRI lumbar spine: Associated Problem(s): Post herpetic neuralgia (CMS/HCC) Jose OARRS reviewed Images from the original note [...] mL 15 mL, Every 4 hours PRN Trahkijftjc-Yezlupego-Fidqpc (Trelegy Ellipta) 100-62.5-25 MCG/ACT aerosol powder 1 [...] Diagnosis Date ADHD (attention deficit hyperactivity disorder) (CMS/HCC) Arthritis Clotting disorder (CMS/HCC) COPD (chronic obstructive pulmonary disease) (CMS/HCC) Depression (CMS/HCC) Disease of thyroid gland (CMS/HCC) Emphysema of lung (CMS/HCC) GERD (gastroesophageal reflux disease) Headache Neuromuscular disorder (CMS/HCC) Obesity Osteoporosis (CMS/HCC) Peptic ulceration Visual impairment Past Surgical History: [...] Problem List Items Addressed This Visit Hypothyroidism (CMS/HCC) Current meds: levothyroxine and cytomel Relevant Orders Lipid panel TSH T4, free Migraine with aura (CMS/HCC) Uses imitrex injectable prn migraine KAUR Morbid obesity ([facility]) Discussed with patient their BMI (actual, verses [...] COPD (chronic obstructive pulmonary disease) with emphysema ([facility]/HCC) Current meds; trelegy, and albuterol Relevant Orders CBC and differential Asthma ([facility]) Current meds: albuterol, trelegy Albuterol few times [...] 75 MG capsule Post herpetic neuralgia (CMS/HCC) Lyrica OARRS reviewed Relevant Medications pregabalin (Lyrica) 75 MG capsule Depression (CMS/HCC) PHQ 9 score= 15 Anxiety DWAIN 7 = 3 Chronic kidney disease, stage 3a (HCC) (CMS/HCC) Based on lab findings Relevant Orders Comprehensive [...] of the risks of continued smoking: stroke, [place], all forms of cancer, lung disease, and [...] of the risks of continued smoking: stroke, [place], all forms of cancer, lung disease, and [...] pounds lost since 03/01 Associated Problem(s): Hypothyroidism ([facility]) Current meds: levothyroxine and cytomel Recheck labs Associated Problem(s): Chronic kidney disease, stage 3a (HCC) ([facility]) Based on lab findings Associated Problem(s): Hiatal hernia with GERD and esophagitis Recommendations: freq small meals, nothing to eat or drink at least 2 hours prior to bed, limit caffeine, alcohol, as well as spicy foods Meds to limit or avoid if possible: NSAIDS Elevate HOB if possible Current meds: pantoprazole Associated Problem(s): COPD (chronic obstructive pulmonary disease) with emphysema ([facility]) Current meds; trelegy, and albuterol Associated Problem(s): Asthma ([facility]) Current meds: albuterol, trelegy Albuterol few times [...] study d/t cost documented in this encounter [facility] 08-01-2024 Instructions Camilla Recinos NP - 08/01/2024 2:40 PM EST Get labs checked Lets see if we can do patient assistance forms for both trelegy and pre gabalin as well documented in this encounter [facility] 03-26-2024 History of Presen t illness Narrative [...] States she is now been bale to helper coordinator the shower daily. Whereas before she could [...] States she is now been bale to helper coordinator the shower daily. Whereas before she could [...] States she is now been bale to helper coordinator the shower daily. Whereas before she could [...] pt with smoking cessation education. Relevant Medications Vziisndgtin-Mfbscwrxe-Tnucmt (Trelegy Ellipta) 100-62.5-25 MCG/ACT aerosol powder Hiatal [...] week- awaiting results. documented in this encounter [facility] 03-26-2024 Instructions Olimpia Yu NP - 03/26/2024 6:15 PM EDT Have lab work completed in 5 weeks. Keep up the good work! Call if you need anything! documented in this encounter [facility] 02-27-2024 History of Presen t illness Narrative Associated Problem(s): Post herpetic neuralgia (CMS/HCC) Has had shingles outbreaks multiple times, states in 2009 had shingles 5+ times in one year and was placed on disability due to prison effects. Tried gabapentin for neuropathy, did not [...] interested in Wegovy via compounding pharmacy in [facility] for weight loss. Will send in RX for one month and reassess. Associated Problem(s): Hypothyroidism (CMS/HCC) Michael's thyroiditis. Was off of Levothyroxine for 4-6 months. TSH 94 in January; Initiated Levothyroxine 50mcg. Recheck ordered in 6 weeks. Will reassess dosing with next lab work. Associated Problem(s): Degeneration of intervertebral disc of lumbosacral region Chronic ongoing. Several MRI's in past @ [facility]- Will request records. Was following Pain Management in [place], [place]; Was prescribed Oxycodone 7.5mg Q8hrs at [...] request records. 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 Tried gabapentin for neuropathy, did not [...] Chronic ongoing. Several MRI's in past @ [facility]- Will request records. Was following Pain Management in [place], [place]; Was prescribed Oxycodone 7.5mg Q8hrs at [...] Orders Ambulatory referral to Pain Medicine Hypothyroidism ([facility]) Michael's thyroiditis. Was off of Levothyroxine for 4-6 months. TSH 94 in January; Initiated Levothyroxine 50mcg. Recheck ordered in 6 weeks. Will reassess dosing with next lab work. Morbid obesity ([facility]) Discussed with patient their BMI (actual, verses [...] interested in Wegovy via compounding pharmacy in [facility] for weight loss. Will send in RX for one month and reassess. Osteoarthritis Relevant Medications oxyCODONE-acetaminophen (Percocet) 5-325 MG tablet Other Relevant Orders Ambulatory referral to Pain Medicine Spinal stenosis Relevant Medications oxyCODONE-acetaminophen (Percocet) 5-325 MG tablet Other Relevant Orders Ambulatory referral to Pain Medicine COPD (chronic obstructive pulmonary disease) with emphysema ([facility]) Current smoker. Was 1 ppd X20+ years. Has decreased to 0.5ppd for past month. Order for PFT's placed. Startted on Trelegy daily and Albuterol PRN pending PFT's. Relevant Medications albuterol HFA 90 mcg/act inhaler Votabdvcfwi-Xuyxtwewx-[place] (Trelegy Ellipta) 100-62.5-25 MCG/ACT aerosol powder Other [...] and was placed on disability due to prison effects. Tried gabapentin for neuropathy, did not [...] avoid nephrotoxic agents. documented in this encounter [facility] 02-25-2024 Instructions Olimpia Yu NP - 02/25/2024 3:30 PM EDT Referrals sent to Nephrology and Pain Management; They will call you! PFT's ordered. Echocardiogram ordered. Will recheck TSH on 03/25/2024 Take ALL medications as directed!! Call if you need anything! documented in this encounter [facility] Healthcare Evaluation note Diagnosis Degeneration of intervertebral disc of lumbosacral region Primary osteoarthritis involving multiple joints Spinal stenosis of thoracolumbar region documented in this encounter [facility] HealthcareEvaluation note* Diagnosis Neuropathy- Primary Mononeuritis [...] Primary Chronic kidney disease, stage 3a (HCC) ([facility]/HCC) Obstructive sleep apnea Obstructive sleep apnea (adult) (pediatric) Spinal stenosis of thoracolumbar region Asthma, unspecified asthma severity, unspecified whether complicated, unspecified whether persistent (CMS/HCC) Pulmonary emphysema, unspecified emphysema type ([facility]/HCC) Hiatal hernia with GERD and esophagitis Morbid obesity ([facility]/HCC) Morbid obesity Anxiety Anxiety state, unspecified Depression, unspecified depression type (CMS/HCC) Migraine with aura and without status migrainosus, not intractable (CMS/HCC) Cigarette nicotine dependence without complication Neuropathy Mononeuritis of unspecified site Chronic fatigue syndrome with fibromyalgia Post herpetic neuralgia ([facility]/HCC) Herpes zoster with other nervous system complications documented in this encounter [facility] HealthcareEvaluation note* Diagnosis Neuropathy- Primary Mononeuritis of [...] persistent (CMS/HCC) Pulmonary emphysema, unspecified emphysema type ([facility]/HCC) Hiatal hernia with GERD and esophagitis Morbid obesity (CMS/HCC) Morbid obesity Anxiety Anxiety state, unspecified Depression, unspecified depression type ([facility]) Migraine with aura and without status migrainosus, not intractable ([facility]) Cigarette nicotine dependence without complication Neuropathy Mononeuritis [...] and esophagitis 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 ([facility]/HCC) Degeneration of intervertebral disc of lumbosacral region Primary osteoarthritis involving multiple joints Morbid obesity ([facility]/HCC) Morbid obesity Chronic fatigue syndrome with fibromyalgia [...] Anxiety state, unspecified Depression, unspecified depression type ([facility]/HCC) Migraine with aura and without status migrainosus, not intractable ([facility]) Cigarette nicotine dependence without complication Neuropathy Mononeuritis of unspecified site Chronic fatigue syndrome with fibromyalgia Post herpetic neuralgia ([facility]/HCC) Herpes zoster with other nervous system complications Degeneration of intervertebral disc of lumbosacral region Primary osteoarthritis involving multiple joints Spinal stenosis of thoracolumbar region documented [facility]* Diagnosis Neuropathy- Primary Mononeuritis of unspecified site Hiatal hernia with GERD and esophagitis 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 Degeneration of intervertebral disc of lumbosacral region Primary osteoarthritis involving multiple joints Morbid obesity ([facility]-HCC) Morbid obesity Chronic fatigue syndrome with fibromyalgia [...] emphysema, unspecified emphysema type (HCC) Morbid obesity (CMS-HCC) Morbid obesity 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 [...] Primary osteoarthritis involving multiple joints Morbid obesity ([facility]-HCC) Morbid obesity Chronic fatigue syndrome with fibromyalgia Spinal stenosis of thoracolumbar region Post herpetic neuralgia Herpes zoster with other nervous system complications Stage 3a chronic kidney disease ([facility]) Obstructive sleep apnea Obstructive sleep apnea (adult) (pediatric) Pulmonary emphysema, unspecified emphysema type (HCC) Abnormal wellness exam Screening for colon cancer Special screening for malignant neoplasms, colon Degeneration of intervertebral disc of lumbosacral region with discogenic back pain and lower extremity pain- Primary Obstructive sleep apnea Obstructive sleep apnea (adult) (pediatric) Pulmonary emphysema, unspecified emphysema type (HCC) Morbid obesity ([facility]-HCC) Morbid obesity 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 Hiatal hernia with GERD and esophagitis Stage 3a chronic kidney disease (CMS-HCC) Hypothyroidism, unspecified type- Primary Chronic kidney disease, stage 3a ([facility]) Obstructive sleep apnea Obstructive sleep apnea (adult) [...] Primary osteoarthritis involving multiple joints Morbid obesity ([facility]-HCC) Morbid obesity Chronic fatigue syndrome with fibromyalgia Spinal stenosis of thoracolumbar region Post herpetic neuralgia Herpes zoster with other nervous system complications Stage 3a chronic kidney disease ([facility]) Obstructive sleep apnea Obstructive sleep apnea (adult) (pediatric) Pulmonary emphysema, unspecified emphysema type (HCC) Abnormal wellness exam Screening for colon cancer Special screening for malignant neoplasms, colon Degeneration of intervertebral disc of lumbosacral region with discogenic back pain and lower extremity pain- Primary Obstructive sleep apnea Obstructive sleep apnea (adult) (pediatric) Pulmonary emphysema, unspecified emphysema type (HCC) Morbid obesity ([facility]) Morbid obesity 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 Hiatal hernia with GERD and esophagitis Stage 3a chronic kidney disease ([facility]) Hypothyroidism, unspecified type- Primary Chronic kidney disease, stage 3a ([facility]) Obstructive sleep apnea Obstructive sleep apnea (adult) (pediatric) Spinal stenosis of thoracolumbar region Asthma, unspecified asthma severity, unspecified whether complicated, unspecified whether persistent (HCC) Pulmonary emphysema, unspecified emphysema type (HCC) Hiatal hernia with GERD and esophagitis Morbid obesity ([facility]) Morbid obesity Anxiety Anxiety state, unspecified Depression, [...] region, unspecified whether pain present Morbid obesity ([facility]) Morbid obesity Hypothyroidism, unspecified type Cigarette nicotine [...] Herpes zoster with other nervous system complications Herpes zoster without complication [facility]* Diagnosis Neuropathy- Primary Mononeuritis of unspecified site Hiatal hernia with GERD and esophagitis 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 Degeneration of intervertebral disc of lumbosacral region Primary osteoarthritis involving multiple joints Morbid obesity ([facility]) Morbid obesity Chronic fatigue syndrome with fibromyalgia Spinal stenosis of thoracolumbar region Post herpetic neuralgia Herpes zoster with other nervous system complications Stage 3a chronic kidney disease ([facility]) Obstructive sleep apnea Obstructive sleep apnea (adult) (pediatric) Pulmonary emphysema, unspecified emphysema type (HCC) Abnormal wellness exam Screening for colon cancer Special screening for malignant neoplasms, colon Degeneration of intervertebral disc of lumbosacral region with discogenic back pain and lower extremity pain- Primary Obstructive sleep apnea Obstructive sleep apnea (adult) (pediatric) Pulmonary emphysema, unspecified emphysema type (HCC) Morbid obesity ([facility]) Morbid obesity 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 Hiatal hernia with GERD and esophagitis Stage 3a chronic kidney disease ([facility]) Hypothyroidism, unspecified type- Primary Chronic kidney disease, stage 3a ([facility]) Obstructive sleep apnea Obstructive sleep apnea (adult) (pediatric) Spinal stenosis of thoracolumbar region Asthma, unspecified asthma severity, unspecified whether complicated, unspecified whether persistent (HCC) Pulmonary emphysema, unspecified emphysema type (HCC) Hiatal hernia with GERD and esophagitis Morbid obesity ([facility]) Morbid obesity Anxiety Anxiety state, unspecified Depression, [...] Herpes zoster with other nervous system complications Hypothyroidism, unspecified type- Primary documented in [facility]* Diagnosis Neuropathy- Primary Mononeuritis of unspecified site Hiatal hernia with GERD and esophagitis 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 Degeneration of intervertebral disc of lumbosacral region Primary osteoarthritis involving multiple joints Morbid obesity ([facility]-HCC) Morbid obesity Chronic fatigue syndrome with fibromyalgia Spinal stenosis of thoracolumbar region Post herpetic neuralgia Herpes zoster with other nervous system complications Stage 3a chronic kidney disease ([facility]) Obstructive sleep apnea Obstructive sleep apnea (adult) (pediatric) Pulmonary emphysema, unspecified emphysema type (HCC) Abnormal wellness exam Screening for colon cancer Special screening for malignant neoplasms, colon Degeneration of intervertebral disc of lumbosacral region with discogenic back pain and lower extremity pain- Primary Obstructive sleep apnea Obstructive sleep apnea (adult) (pediatric) Pulmonary emphysema, unspecified emphysema type (HCC) Morbid obesity ([facility]-HCC) Morbid obesity 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 Hiatal hernia with GERD and esophagitis Stage 3a chronic kidney disease (CMS-HCC) Hypothyroidism, unspecified type- Primary Chronic kidney disease, stage 3a ([facility]) Obstructive sleep apnea Obstructive sleep apnea (adult) [...] Primary osteoarthritis involving multiple joints Morbid obesity ([facility]-HCC) Morbid obesity Chronic fatigue syndrome with fibromyalgia Spinal stenosis of thoracolumbar region Post herpetic neuralgia Herpes zoster with other nervous system complications Stage 3a chronic kidney disease ([facility]) Obstructive sleep apnea Obstructive sleep apnea (adult) (pediatric) Pulmonary emphysema, unspecified emphysema type (HCC) Abnormal wellness exam Screening for colon cancer Special screening for malignant neoplasms, colon Degeneration of intervertebral disc of lumbosacral region with discogenic back pain and lower extremity pain- Primary Obstructive sleep apnea Obstructive sleep apnea (adult) (pediatric) Pulmonary emphysema, unspecified emphysema type (HCC) Morbid obesity ([facility]-HCC) Morbid obesity 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 Hiatal hernia with GERD and esophagitis Stage 3a chronic kidney disease (CMS-HCC) Hypothyroidism, unspecified type- Primary Chronic kidney disease, stage 3a ([facility]) Obstructive sleep apnea Obstructive sleep apnea (adult) (pediatric) Spinal stenosis of thoracolumbar region Asthma, unspecified asthma severity, unspecified whether complicated, unspecified whether persistent (HCC) Pulmonary emphysema, unspecified emphysema type (HCC) Hiatal hernia with GERD and esophagitis Morbid obesity ([facility]) Morbid obesity Anxiety Anxiety state, unspecified Depression, [...] Herpes zoster with other nervous system complications Spinal stenosis of thoracolumbar region- Primary [facility]* Diagnosis Onset Date Resolution Status Admit Date DDD (degenerative disc disease), lumbosacral acute February 13, 2025 1:23pm Fibromyalgia acute February 1:23pm Morbid obesity due to excess calories acute February 13 025 1:23pm Nicotine dependence acute 2024 1:23pm JENNY (obstructive sleep apnea) acute February 13, 2025 1:23pm Spinal stenosis acute February 13, 2025 1:23pm [facility] Work Phone: Reason for referral (narrative)* Consultation (Routine) - Pending Review Specialty Diagnoses / Procedures Referred By Joaquin miller Referred To Contact Sleep Medicine Diagnoses Obstructive sleep apnea Pulmonary emphysema, unspecified emphysema type (CMS/HCC) Procedures [place] OFFICE/OUTPATIENT [facility] 60 MINUTES Olimpia Yu NP [address] [place] [phone] Bennie Welsh MD [address] [address] Referral ID Status Reason Start Date Expiration Date Visits Requested Visits Authorized [id number] Pending Review Specialty Services Required 02/27/2024 08/25/2024 1 1 * Consultation (Routine) - Authorized Specialty Diagnoses / Procedures Referred By Joaquin t Referred To Contact Pain Medicine Diagnoses Degeneration of intervertebral disc of lumbosacral region Primary osteoarthritis involving multiple joints Spinal stenosis of thoracolumbar region Procedures [place] OFFICE/OUTPATIENT NEW [facility] 60 MINUTES Olimpia Yu NP [address] [place] [address] Nicko Blue MD [address] [facility], [address], [place] [address] Referral ID Status Reason Start Date Expiration Date Visits Requested Visits Authorized [id number] Authorized Specialty Services Required 02/21/2024 08/19/2024 1 1 Scheduling Instructions Please include MRI reports/ Xrays/ CT's. Thank you! * Imaging (Routine) - Authorized Specialty Diagnoses / Procedures Referred By Joaquin miller Referred To Contact Cardiology Diagnoses Stage 3a chronic kidney disease (HCC) ([facility]/HCC) Obstructive sleep apnea Procedures Echocardiogram 2D complete Olimpia Yu NP [address] [place] [address] [facility] [address] [place] [phone] Phone: [phone] Referral ID Status Reason Start Date Expiration Date Visits Requested Visits Authorized [id number] Authorized Perform Procedure 02/21/2024 08/19/2024 1 1 [facility] (narrative)No reason for referral information available[facility]: Summary Purpose Family History No Family History Records FoundNo Family History Records FoundNo Family History Records Found Advance Directives Advance Directive Response Recorded Date/ Time Advance Directives No February 02, 2025 4:30pm Procedure Findings Note CONSULTATION PAIN MANAGEMENT PROCEDURE NOTE Consultation Date: 1-13-20 PRE AND POST PROCEDURE DIAGNOSIS: Bilateral trapezius [...] and stable. Dictated by Aisha El APRN [facility] Signed and Approved by: AISHA EL 07/18/2019 12:39:00 Chief Complaint and Reason for Visit Chief Complaint Admit Date Established Patient February 13, 2025 1:23pm Reason for Visit Admit Date DDD (degenerative disc disease), lumbosa cral February 13, 2025 1:23pm Fibromyalgia February 13, 2025 1:23pm Morbid obesity due to excess calories Se pt2024 1:23pm Nicotine dependence February 13, 2025 1:23pm JENNY (obstructive sleep apnea) February 13, 2025 1:23pm Spinal stenosis February 13, 2025 1:23pm Additional Source Comments INFORMATION SOURCE (unrecogn ized section and content) DATE CREATED AUTHOR 09/18/2018 [facility] DATE CREATED AUTHOR AUTHOR'S ORGANIZ ATION 03/26/2020 [facility] DATE CREATED AUTHOR AUTHOR'S ORGANIZ ATION 11/03/2024 [facility] dical Specialists [employer] Care Teams (unrecognized sec tion and content) Real Estate Specialist Relationship Specialty Start Date End Date Aiden Santamaria MD [address] [place] [address] PCP - General Family Medicine 01/07/24 Olimpia Yu NP [address] [place] [address] Nurse Practitioner Family Medicine 01/07/24 Real Estate Specialist Relationship Specialty Start Date End Date Aiden Santamaria MD [address] [place] [phone] PCP - General Family Medicine 01/07/24 Olimpia Yu NP [address] [place] [address] Nurse Practitioner Family Medicine 01/07/24 Real Estate Specialist Relationship Specialty Start Date End Date Olimpia Yu NP [address] [place] [address] Nurse Practitioner Family Medicine 01/07/24 Olimpia Yu Nurse Practitioner 03/26/24 Real Estate Specialist Relationship Specialty Start Date End Date Olimpia Yu NP [address] [place] [address] Nurse Practitioner Family Medicine 01/07/24 Olimpia Yu Nurse Practitioner 03/26/24 Real Estate Specialist Relationship Specialty Start Date End Date Olimpia Yu NP [address] [place] [address] Nurse Practitioner Family Medicine 01/07/24 Olimpia Yu Nurse Practitioner 03/26/24 Real Estate Specialist Relationship Specialty Start Date End Date Aiden Santamaria MD [address] [place] [phone] PCP - General Family Medicine 01/07/24 Olimpia Yu NP [address] [place] [address] Nurse Practitioner Family Medicine 01/07/24 Real Estate Specialist Relationship Specialty Start Date End Date Aiden Santamaria MD [address] [place] [address] PCP - General Family Medicine 01/07/24 Olimpia Yu NP [address] [place] [address] Nurse Practitioner Family Medicine 01/07/24 Real Estate Specialist Relationship Specialty Start Date End Date Aiden Santamaria MD [address] [place] [phone] PCP - General Family Medicine 01/07/24 Olimpia Yu NP [address] [place] [address] Nurse Practitioner Family Medicine 01/07/24 Real Estate Specialist Relationship Specialty Start Date End Date Olimpia Yu NP [address] [place] [address] Nurse Practitioner Family Medicine 01/07/24 Olimpia Yu Nurse Practitioner 03/26/24 Real Estate Specialist Relationship Specialty Start Date End Date Olimpia Yu NP [address] [place] [address] Nurse Practitioner Family Medicine 01/07/24 Olimpia Yu Nurse Practitioner 03/26/24 Real Estate Specialist Relationship Specialty Start Date End Date Aiden Santamaria MD [address] [place] [phone] PCP - General Family Medicine 07/19/24 Olimpia Yu NP [address] [place] [id number] Nurse Practitioner Family Medicine 01/07/24 Olimpia Yu Nurse Practitioner 03/26/24 Real Estate Specialist Relationship Specialty Start Date End Date Aiden Santamaria MD [address] [place] [phone] PCP - General Family Medicine 07/19/24 Olimpia Yu NP Nurse Practitioner Family Medicine 01/07/24 Olimpia Yu Nurse Practitioner 03/26/24 Real Estate Specialist Relationship Specialty Start Date End Date Aiden Santamaria MD [address] [place] [phone] PCP - General Family Medicine 07/19/24 Olimpia Yu NP Nurse Practitioner Family Medicine 01/07/24 Olimpia Yu Nurse Practitioner 03/26/24 Real Estate Specialist Relationship Specialty Start Date End Date Aiden Santamaria MD [address] [place] [phone] PCP - General Family Medicine 07/19/24 Olimpia Yu NP Nurse Practitioner Family Medicine 01/07/24 Olimpia Yu Nurse Practitioner 03/26/24 Real Estate Specialist Relationship Specialty Start Date End Date Aiden Santamaria MD [address] [place] [phone] PCP - General Family Medicine 07/19/24 Olimpia Yu NP Nurse Practitioner Family Medicine 01/07/24 Olimpia Yu Nurse Practitioner 03/26/24 Real Estate Specialist Relationship Specialty Start Date End Date Aiden Santamaria MD [address] [place] [phone] PCP - [facility] Family Medicine 07/19/24 Olimpia Yu NP Nurse Practitioner Family Medicine 01/07/24 Olimpia Yu Nurse Practitioner 03/26/24 Real Estate Specialist Relationship Specialty Start Date End Date Aiden Santamaria MD [address] [place] [phone] PCP - General Family Medicine 07/19/24 Forest Godoy, [address] [address] PCP - [facility] 08/06/24 07/08/87 Olimpia Yu NP Nurse Practitioner Family Medicine 01/07/24 Olimpia Yu Nurse Practitioner 03/26/24 Real Estate Specialist Relationship Specialty Start Date End Date Aiden Santamaria MD [address] [place] [phone] PCP - General Family Medicine 07/19/24 Forest Godoy, [address] [place] [address] PCP - [facility] 08/06/24 07/08/87 Olimpia Yu NP Nurse Practitioner Family Medicine 01/07/24 Olimpia Yu Nurse Practitioner 03/26/24 Real Estate Specialist Relationship Specialty Start Date End Date Aiden Santamaria MD [address] [place] [phone] PCP - General Family Medicine 07/19/24 Forest Godoy DO [address] [place] [address] PCP - [facility] 08/06/24 07/08/87 Olimpia Yu NP Nurse Practitioner Family Medicine 01/07/24 Olimpia Yu Nurse Practitioner 03/26/24 Real Estate Specialist Relationship Specialty Start Date End Date Aiden Santamaria MD [address] [place] [phone] PCP - General Family Medicine 07/19/24 Forest Godoy DO [address] [place] [address] PCP - [facility] 08/06/24 07/08/87 Olimpia Yu NP Nurse Practitioner Family Medicine 01/07/24 Olimpia Yu Nurse Practitioner 03/26/24 Real Estate Specialist Relationship Specialty Start Date End Date Aiden Santamaria MD [address] [place] [address] PCP - General Family Medicine 07/19/24 Forest Godoy DO [address] [place] [address] PCP - [facility] 08/06/24 07/08/87 Olimpia Yu NP Nurse Practitioner Family Medicine 01/07/24 Olimpia Yu Nurse Practitioner 03/26/24 Real Estate Specialist Relationship Specialty Start Date End Date Aiden Santamaria MD [address] [place] [phone] PCP - General Family Medicine 07/19/24 Forest Godoy, [address] [place] [address] PCP - [facility] 08/06/24 07/08/87 Olimpia Yu NP Nurse Practitioner Family Medicine 01/07/24 Olimpia Yu Nurse Practitioner 03/26/24 Real Estate Specialist Relationship Specialty Start Date End Date Aiden Santamaria MD [address] [place] [address] PCP - General Family Medicine 07/19/24 Forest Godoy DO [address] [place] [address] PCP - [facility] 08/06/24 07/08/87 Olimpia Yu NP Nurse Practitioner Family Medicine 01/07/24 Olimpia Yu Nurse Practitioner 03/26/24 Team Status: Active Member Role Status Dates Camilla Recinos Primary Care Provider Active Team Status: Inactive Member Role Status Dates Camilla Recinos Primary Care Provider Active Sta rt: February 13, 2025 End: February 13, 2025 Camilla Recinos Attending Provider Active Start: February 13, 2025 End: February 13, 2025 Reason for Visit (unrecogniz ed section and [...] Reason Onset Date Comments Med Refill 12/28/2024 Reason Comments Med Refill Reason Onset Date Comments Med Refill 01/30/2025 Goals (unrecognized section and content) Goals may be documented in a n alternate section FOR RECORDS PERTAINING TO PATIENTS WHO ARE [...] BE BASED ON THE PRIMARY CLINICAL RECORDS. [employer] provides no warranty or guarantee of the accuracy or completeness of information in this document.
--- NOTE | 2025-02-16 13:30 | PM.CN ---
Consult Note: HPI Data of Consult Patient: new to practice Consult date: 02/16/25 Requesting Physician: Melvi Moore NP Primary Care Provider: Camilla Recinos NP Consult Narrative Reason for consult: chronic pain Narrative: 59 year old female presents for evaluation of chronic pain. longstanding hx of chronic pain secondary to prior thoracic/lumbar compression fractures, lumbar bulging disc per pt, fibromyalgia, and degenerative changes. Appears she originally established with Dr Ray, reports hx of being on perc 30s and morphine . Pt a previous pt of Dr Sheffield, [id number], however she did not like his manor and its noted she failed a lumbar MBB as well as previously inappropriately taking pain medications as noted on utox. pt then started seeing Dr Sanchez in [place] who maintained her opioids but she could not withstand the travel. noted side effects with duloxetine in the past, unable to recall prior medications. For the last few years she has been under the care off [facility] but she is no longer practicing and the pts new providers will not maintain her opioids. reports no prior NS consultations, is fearful of undergoing surgery due to risks and potential anesthesia complications. No recent imaging of thoracic/lumbar spine, no recent PT. utilizing percocet 5-325mg TID, lyrica 75mg BID, flexeril 10mg prn, and of note is on adderal. Pain 6/10 increasing to 10/10 with activity. reports pain radiating into right leg. cc:: CC: Melvi Moore NP Review of Systems ROS Musculoskeletal Reports: back pain, extremity pain and joint pain Exam Back & Pelvis Thoracic spine/upper back: ROM limited, pain with ROM and thoracic spinal tenderness Lumbar spine/lower back: ROM limited, pain with ROM, lumbar spinal tenderness and straight leg raise positive right Other: intermittent pain right L4,5,S1 diffuse hyperalgesia and severe discomfort to touch Assessment and Plan Assessment and Plan (1) Chronically on opiate therapy: (2) Opioid-induced hyperalgesia: (3) Fibromyalgia: (4) Lumbar stenosis with neurogenic claudication: (5) Chronic pain syndrome: Plan Extensive conversation regarding patients pain patterns, most consistent with fibromyalgia, hypersensitivity, and lumbar stenosis with NC. I recommend updating lumbar xray with flexion and PT for her pain in consideration of a lumbar MRI. I recommend pt wean off of opioids due to data supporting terminologist opioids worsening FM pain and contributing to hyperalgesia as noted on physical exam. I am also concerned she has developed a dependency with her patterns of rotating physicians based on who will prescribe opioids to her, notes hx of daughter with substance abuse/addiction. Patient reports when she was previously without opioids she became severely depressed and homebound. Patient may benefit from psychiatry/counseling with chronic pain syndrome. She is not currently seeing a counselor/psychiatrist. Would recommend pt trial LDN once weaned off of opioids. furthermore could benefit from alternative SSRIs/SNRIs or alternative muscle relaxers. I did discuss injection therapy as pt shoulder consider TFESIs, SIJ injections, lumbar MBBs/RFA, or SCS in our office but she is not interested. Patient became upset at the recommended treatment plan, citing she hopes i never am in this pain and needing medications. Pt walked out of today's appointment declining further care. I will notify Camilla Recinos and her care team.
== END 2025-02-16 12:34 | disposition home or self-care (01) ==
LOC: PM 12:33
PROVIDERS: PCP Nurse Practitioner; Visit Provider Nurse Practitioner
DX: Z79.891 Long term (current) use of opiate analgesic (principal); R20.8 Other disturbances of skin sensation; M79.7 Fibromyalgia; M48.062 Spinal stenosis, lumbar region with neurogenic claudication; G89.4 Chronic pain syndrome
CPT/HCPCS: G0463